=== PATIENT | male | born 1975 | race Caucasian/White ===

== ENCOUNTER → 2021-03-07 08:17 | Outpatient (CLI) | payer OTHER, SELFPAY ==
[2021-03-07 09:55] LABS: Absolute Lymphocyte Count 2.05 X10^3/uL (0.83-4.51); Absolute Neutrophil Count 3.9 X10^3/uL (2.0-7.7); Basophil# 0.03 X10^3/uL; Basophil% 0.4 % (0-1); Eosinophil# 0.14 X10^3/uL; Eosinophils% 2.1 % (0-5); Hematocrit 40.2 % (40-54); Lymphocyte # 2.05 X10^3/ul (0.83-4.51); Lymphocyte % 30.6 % (19-41); Mean Corp Hgb Conc 34.8 g/dL (32-36); Mean Corpuscular Hgb 30.6 pg (27.0-32.0); Mean Platelet Vol. 10.4 fl (6.2-12.0); Monocyte# 0.52 X10^3/uL; Monocyte% 7.8 % (0-10); NRBC Flagged by Analyzer 0 % (0-5); Neutrophil % 58.4 % (47-70); Platelet Count 204 K/mm3 (150-450); RBC Distribution Width CV 13.1 % (11.6-14.6); RBC Distribution Width SD 41.8 fl (35.1-43.9); Red Blood Count 4.57 M/mm3 (4.6-6.2); White Blood Count 6.7 K/mm3 (4.4-11.0)
[2021-03-07 10:16] LABS: Hemoglobin A1c 6.8 % (3.8-5.6)
[2021-03-07 10:37] LABS: Vitamin D,25 Hydroxy 23.8 ng/mL
[2021-03-07 10:48] LABS: ALB/GLOB Ratio 0.9 RATIO (0.9-2.4); AST(SGOT) 33 U/L (15-37); Alanine Aminotransfer ALT/SGPT 56 U/L (16-61); Albumin, Serum 3.7 g/dL (3.2-5.0); Alkaline Phosphatase 61 U/L (45-117); Anion Gap 8 (5-15); BUN 12 mg/dL (7-18); BUN/Creat Ratio 9.5 RATIO (10-20); Calcium,Total 8.9 mg/dL (8.5-10.1); Chloride 99 mmol/L (98-107); Cholesterol 227 mg/dL (200); Creatinine, Serum 1.26 mg/dL (0.70-1.30); EST Glomerular Filtration Rate 65 mL/min (>60); Est Glom Filt Rate - Afr Amer 79 mL/min (>60); Glucose 171 mg/dL (74-106); High Density Lipoprotein 39 mg/dL; Magnesium 1.7 mg/dL (1.6-2.6); PSA,Total - Annual Screen 0.94 ng/mL (0.00-4.00); Potassium 3.8 mmol/L (3.5-5.1); Protein, Total 7.7 g/dL (6.4-8.2); Sodium Level 134 mmol/L (136-145); Thyroid Stim Hormone (TSH) 0.21 uIU/mL (0.358-3.74); Triglycerides 327 mg/dL; Very Low Density Lipoprotein 65 mg/dL (5-40)
== END ==
PROVIDERS: PCP Internal Medicine; Referring Provider Internal Medicine; Visit Provider Internal Medicine
DX: E03.9 Hypothyroidism, unspecified (principal); E78.5 Hyperlipidemia, unspecified; I10 Essential (primary) hypertension; F32.A Depression, unspecified; F41.9 Anxiety disorder, unspecified
CPT/HCPCS: 36415; 80053; 80061; 82306; 83036; 83735; 84153; 84443; 85025; G0103

== ENCOUNTER 2021-07-17 11:23 | Outpatient (CLI) | payer OTHER, SELFPAY ==
[2021-07-17 12:50] LABS: Vitamin D,25 Hydroxy 30.2 ng/mL
[2021-07-17 13:23] LABS: Microalbumin:Creatinine Ratio 74.5 mg/g CRE (<30 mg/g CRE)
[2021-07-17 13:30] LABS: ALB/GLOB Ratio 1.1 RATIO (0.9-2.4); AST(SGOT) 34 U/L (15-37); Alanine Aminotransfer ALT/SGPT 56 U/L (16-61); Albumin, Serum 4.1 g/dL (3.2-5.0); Alkaline Phosphatase 71 U/L (45-117); Anion Gap 9 (5-15); BUN 14 mg/dL (7-18); BUN/Creat Ratio 10.9 RATIO (10-20); Calcium,Total 9.2 mg/dL (8.5-10.1); Chloride 102 mmol/L (98-107); Creatinine, Serum 1.28 mg/dL (0.70-1.30); EST Glomerular Filtration Rate 64 mL/min (>60); Est Glom Filt Rate - Afr Amer 77 mL/min (>60); Follicle Stimulating Hormone 0.3 mIU/mL; Globulin 3.9 g/dL (2.2-4.2); Glucose 165 mg/dL (74-106); Luteinizing Hormone < 0.2 mIU/mL; Prolactin 7.5 ng/mL; Sodium Level 135 mmol/L (136-145); T4 Free Direct 1.45 ng/dL (0.76-1.46)
[2021-07-20 19:07] LABS: Testosterone, % Free 3.82 % (1.50-4.20); Testosterone, Free 3.21 ng/dL (5.00-21.00)
[2021-07-20 20:02] LABS: Anti-Thyroglobulin AB < 1.0 IU/mL (0.0-0.9); Testosterone, Total 84 ng/dL (264-916); Thyroglobulin, Serum Qt. 0.1 ng/mL (1.4-29.2)
== END 2021-07-17 23:59 | disposition home or self-care (01) ==
LOC: BIMLAB 11:23
PROVIDERS: PCP Internal Medicine; Referring Provider Internal Medicine Endocrinology, Diabetes & Metabolism; Visit Provider Internal Medicine Endocrinology, Diabetes & Metabolism
DX: E78.5 Hyperlipidemia, unspecified (principal); C73 Malignant neoplasm of thyroid gland; E11.9 Type 2 diabetes mellitus without complications; I10 Essential (primary) hypertension; E03.9 Hypothyroidism, unspecified; E55.9 Vitamin D deficiency, unspecified
CPT/HCPCS: 36415; 80053; 82043; 82306; 82570; 83001; 83002; 84146; 84402; 84403; 84432; 84439; 84443; 86800

== ENCOUNTER 2021-07-30 08:02 | Outpatient (CLI) | payer OTHER, SELFPAY ==
--- NOTE | 2021-07-30 08:05 | VDLE_ITS ---
Reason For Study: RLE swelling RIGHT GSV is normal. CFV is compressible, spontaneous, phasic, competent and demonstrates normal augmentation. FV is compressible, spontaneous, phasic, competent and demonstrates normal augmentation. POP V is compressible, spontaneous, phasic, competent and demonstrates normal augmentation. T/P Trunk is compressible. PTV is compressible. RT PerV is compressible. Hypoechoic area behind the knee measuring 2.35 x 5.51 cm. Area is nonvascular. Procedure This is a venous duplex using B-mode, color flow and spectral Doppler. Exam performed in department. The exam was abbreviated due to the COVID 19 protocol. The exam was diagnostic. A preliminary report was called and/or faxed to Dr. Montelongo. VL/Venous Duplex US, Unilateral Interpretation Summary There is no evidence of right lower extremity deep vein thrombosis. Right great saphenous vein appears patent and compressible segmentally. SuctionNonvascular hypoechoic righ t popliteal space 2.35 x 5.51 cm consistent with a Porter's cyst. Clinical correlation would be ap propriate. Abbreviated COVID-19 protocol utilized Ordering Physician: Aníbal Montelongo Performed By: Morgan Mccormick RVT
== END 2021-07-30 23:59 | disposition home or self-care (01) ==
LOC: CVS 08:04
PROVIDERS: PCP Internal Medicine; Referring Provider Internal Medicine Endocrinology, Diabetes & Metabolism; Visit Provider Internal Medicine Endocrinology, Diabetes & Metabolism
DX: R60.0 Localized edema (principal)
CPT/HCPCS: 93971

== ENCOUNTER 2021-08-01 15:00 | Outpatient (RCR) | payer OTHER, SELFPAY ==
--- NOTE | 2021-07-02 18:58 | HP.PTEVAL_ITS ---
Patient's Visit Information ASHLEY RUBIO is a 45 year old M referred to Physical Therapy by Dr. Katty Hogan MD with a diagnosis of CERVICAL RADICULOPATHY. Date of Evaluation: 07/02/21 Physical Therapist: Cash Patel, PT, Cert MDT, OCS - Visit Plan Frequency: 2x /Week Duration: 4 Weeks Plan: CAUTIONS H/O SHOULDER DISLOCATION. PT INTERVETIONS MODALTIES FOR PAIN ,ICTX 25#/12# [id number],MANUAL THERAPY CERVICAL ,CERVICAL ROM MAINLY TO RIGHT INTAILLY,POSTURAL EX'S - Subjective This 45 y/o male presents to physical therapy with cervical radiculopathy. Patient has had cervical radiculopathy for~ 1 year. No predisposing factors with progressively worsen. Patient has location of constant pain UT - shoulder and intermittent paresthesia/tingling in thumb -index finger C5-6 dermatome. Aggravating turn cervical spine left, lifting with arm with some weakness even though patient is right hand dominate. Alleviating turn to right. Patient seen MD recommended PT, muscles relaxer . Patient denies NUÑEZ/tinnitus/dizziness. Patient pain affects job demands /housework tasks . SOCAIL: . 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 NEURO: c/o paresthesia/tingling left C5-C6 1/3 ,MYTOMES intact. ENA BUE:WFL limited by h/o shoulder dislocation. CERVICAL ROM: flexion min loss, extension min loss ,lateral flexion/rotation min/mod pain and numbness in fingers. MMT: 4/5 except shoulders 4-/5 - Special Tests C/S Radiculapathy - Left Upper limb tension test: Negative C/S Radiculapathy - Right Upper limb tension test: Negative C/S Radiculapathy - Left Spurlings: Positive C/S Radiculapathy - Right Spurlings: Negative C/S Radiculapathy - Left Cervical distraction: Negative C/S Radiculapathy - Right Cervical distraction: Negative C/S Radiculapathy - Left Relief test: Negative C/S Radiculapathy - Right Relief test: Negative Sharp Dorina: Negative Vertebral Artery Test: Negative Alar Ligament Test: Negative Cervical Sitting: Protrusion - Mechanical Response: No effect Cervical Sitting: Protrusion - Symptoms During Testing: No effect Cervical Sitting: Protrusion - Symptoms After Testing: No effect Cervical Sitting: Retraction - Mechanical Response: No effect Cervical Sitting: Retraction - Symptoms During Testing: Increases Cervical Sitting: Retraction - Symptoms After Testing: No worse Cervical Sitting: Retraction-Extension - Mechanical Response: No effect Cerv Sitting: Retraction-Extension - Symptoms During Testing: Increases Cerv Sitting: Retraction-Extension - Symptoms After Testing: No worse Cervical Sitting: Sidebend Right - Mechanical Response: No effect Cervical Sitting: Sidebend Right - Symptoms During Testing: Decreases Cervical Sitting: Sidebend Right - Symptoms After Testing: Better Cervical Sitting: Sidebend Left - Mechanical Response: No effect Cervical Sitting: Sidebend Left - Symptoms During Testing: Produces Cervical Sitting: Sidebend Left - Symptoms After Testing: Worse Cervical Sitting: Rotation Right - Mechanical Response: No effect Cervical Sitting: Rotation Right - Symptoms During Testing: Decreases Cervical Sitting: Rotation Right - Symptoms After Testing: No better Cervical Sitting: Rotation Left - Mechanical Response: No effect Cervical Sitting: Rotation Left - Symptoms During Testing: Produces Cervical Sitting: Rotation Left - Symptoms After Testing: No worse Cervical Sitting: Flexion - Mechanical Response: No effect Cervical Sitting: Flexion - Symptoms During Testing: No effect Cervical Sitting: Flexion - Symptoms After Testing: No effect - Balance/Special Test Scores Oswestry Neck Score: 19 - Goals Goal 1:: I with HEP to mange cervical radiculopathy Goal Time Frame: 4-6 Weeks Goal 2:: Patient improve posture 90% of the time for function and job demnads. Goal Time Frame: 4-6 Weeks Goal 3:: Patient to demonstrate 50% improvement with decrease radiculopathy to improve function Goal Time Frame: 4-6 Weeks Goal 4:: Patient to improve cervical ROM for function of recovery to turn neck when driving a car Goal Time Frame: 4-6 Weeks Goal 5:: Patient to improve neck oswestry score by 5 points or > to improve QOL Goal Time Frame: 4-6 Weeks - Rehabilitation Potential Physical Therapy Diagnosis: This patient has cervical radiculopathy from possible disc lateral stenosis vs disc issue derangement with symptoms worse with positioning and movement to ,left with numbness C5-6 and pain UT thus benefit from skilled PT Rehabilitation Potential: Good - Anticipated Interventions Patient/Client Instruction: Educate patient on: Condition, Plan of Care For the Purpose of:: To decrease pain, To increase ROM, To improve muscle performance and motor function, To improve ability to perform ADL's, To increase tolerance to activity/condition/position, To improve ability of physical actions for home/community/work/leisure, To improve health of tissue, To decrease soft tissue restriction, To increase flexibility/ROM, To reduce risk of recurrence, To prevent re-injury Therapeutic Exercise to Include: Strength training, Power training, Balance training, Postural training, Flexibilty training, Active ROM, Didier Exercises For the Purpose of:: To decrease pain, To increase ROM, To increase oxygenation perfusion, To increase tolerance to activity/condition/position, To improve ability of physical actions for home/community/work/leisure, To improve health of tissue, To decrease soft tissue restriction, To increase flexibility/ROM, To prevent re-injury Manual Therapy Techniques to Include: Mobilization Comment: CERVICAL For the Purpose of:: To decrease pain, To increase ROM, To improve nutrient delivery to tissue, To increase oxygenation perfusion, To improve health of tissue, To decrease soft tissue restriction TENS: Yes IF ES: Yes Cryotherapy (ice pack, ice massage): Yes Thermo therapy (hot pack): Yes Ultrasound (thermal/non thermal): Yes For the Purpose of:: To decrease pain, To improve nutrient delivery to tissue, To increase oxygenation perfusion, To improve health of tissue, To decrease soft tissue restriction Thank you for the opportunity to evaluate your patient. For Medicare and Medicare HMO plans, please review the plan of care and approve it. It will need to be FAXED BACK to us at [phone] for Medicare purposes. For Medicare only, by signing this I certify the plan of care. Please let me know if there are questions or concerns regarding this plan of care. Physician Signature: Date:
--- NOTE | 2021-12-26 11:57 | HP.PT.NRP ---
ASHLEY RUBIO was seen in my office for initial evaluation on 07/02/21. The following Plan of Care was established for this patient: Initial Frequency: 2x /Week Initial Duration: 4 Weeks Patient/Client Instruction: Educate patient on: Condition, Plan of Care For the Purpose of:: To decrease pain, To increase ROM, To improve muscle performance and motor function, To improve ability to perform ADL's, To increase tolerance to activity/condition/position, To improve ability of physical actions for home/community/work/leisure, To improve health of tissue, To decrease soft tissue restriction, To increase flexibility/ROM, To reduce risk of recurrence, To prevent re-injury Therapeutic Exercise to Include: Strength training, Power training, Balance training, Postural training, Flexibilty training, Active ROM, Didier Exercises For the Purpose of:: To decrease pain, To increase ROM, To increase oxygenation perfusion, To increase tolerance to activity/condition/position, To improve ability of physical actions for home/community/work/leisure, To improve health of tissue, To decrease soft tissue restriction, To increase flexibility/ROM, To prevent re-injury Manual Therapy Techniques to Include: Mobilization Comment: CERVICAL For the Purpose of:: To decrease pain, To increase ROM, To improve nutrient delivery to tissue, To increase oxygenation perfusion, To improve health of tissue, To decrease soft tissue restriction TENS: Yes IF ES: Yes Cryotherapy (ice pack, ice massage): Yes Thermo therapy (hot pack): Yes Ultrasound (thermal/non thermal): Yes For the Purpose of:: To decrease pain, To improve nutrient delivery to tissue, To increase oxygenation perfusion, To improve health of tissue, To decrease soft tissue restriction This patient was last seen in our office . Pertinent comments regarding their Physical therapy will appear below: This patient was seen for PT for cervical radiculopathy for ICTX and postural ex's ,Patient had MRI and followed up with DR Naidu At this point I will be discontinuing this patient from physical therapy. I would be happy to see this patient again in the future if found appropriate by the physician. Thank you! Cash Patel, PT, Cert MDT, OCS Balance/Gait/Functional tests - Balance/Special Test Scores Oswestry Neck Score: 8
== END 2021-08-01 19:00 | disposition home or self-care (01) ==
LOC: PT 15:00
PROVIDERS: PCP Internal Medicine; Referring Provider Internal Medicine; Visit Provider Internal Medicine
DX: M54.12 Radiculopathy, cervical region (principal)
CPT/HCPCS: 97012; 97035; 97110; 97162

== ENCOUNTER 2021-12-11 15:38 | Emergency (ER) | payer OTHER, SELFPAY ==
[2021-12-11 15:39] VITALS: BP 200/115; PULSE 89; RESP 18; TEMP 36.3; O2SAT 97; BMI 50.0
--- NOTE | 2021-12-11 15:49 | VDLE_ITS ---
[id number] VL^VDUL^Venous Duplex US- Unilateral [id number] Reason For Study: pain RIGHT GSV is normal. CFV is compressible, spontaneous, phasic, competent and demonstrates normal augmentation. FV is compressible, spontaneous, phasic, competent and demonstrates normal augmentation. POP V is compressible, spontaneous, phasic, competent and demonstrates normal augmentation. T/P Trunk is compressible. PTV is compressible. RT PerV is compressible. Hypoechoic area behind the knee measuring 5.79 x 2.42 cm. Area is nonvascular. Procedure This is a venous duplex using B-mode, color flow and spectral Doppler. Exam performed portable in ED. The exam was abbreviated due to the COVID 19 protocol. The exam was diagnostic. A preliminary report was called and/or faxed to Dr. Matos. VL/Venous Duplex US, Unilateral Interpretation Summary There is no evidence of right lower extremity deep vein thrombosis. Right great saphenous vein appears patent and compressible segmentally. Nonvascular hypoechoic right popli teal space 5.79 x 2.4 cm structure consistent with a Porter's cyst. Clinical correlation would be appr opriate. Abbreviated COVID-19 protocol utilized Ordering Physician: Chin Matos Performed By: Morgan Mccormick RVT
--- NOTE | 2021-12-11 15:49 | ED.VIS.LOWEX ---
HPI History of Present Illness Chief Complaint: Lower Extremity Injury Detail of Chief Complaint: Pain to her right lateral thigh Informant: patient Narrative Narrative: Patient presents the emergency room with complaint of pain to his right lateral thigh. Patient states that the pain started earlier today. He denies any trauma to his leg. He denies back pain. Patient has history of varicose veins and his was concerned he might have a blood clot. He denies recent travel or surgery. No history of DVT. Patient denies any chest pain or shortness of breath out of the ordinary. Patient states the pain is intermittent lasts about 15 seconds at a time and then goes away for about 30 seconds then comes back. Patient states the pain is mild currently. [facility] Medical History AA (alcohol abuse) Arthritis Cancer Disorder of thyroid Gout History of back problems History of emotional problems Hyperlipidemia Hypertension Obesity Osteoarthritis of right knee Postoperative primary hypothyroidism Thyroid cancer Home Medications cholecalciferol (vitamin D3) 50 mcg (2,000 unit) capsule 50 mcg PO DAILY 02/19/21 [History Last Taken Unknown] atorvastatin 40 mg tablet 40 mg PO DAILY #90 tabs 03/07/21 [Rx Last Taken Unknown] buspirone 15 mg tablet 15 mg PO BID #180 tabs 05/31/21 [Rx Last Taken Unknown] cyclobenzaprine 10 mg tablet 10 mg PO TID #30 tabs 06/19/21 [Rx Last Taken Unknown] lisinopril 40 mg tablet 40 mg PO DAILY #90 tabs 06/22/21 [Rx Last Taken Unknown] omeprazole 40 mg capsule,delayed release 40 mg PO DAILY 07/17/21 [History Last Taken Unknown] chlorthalidone 25 mg tablet 25 mg PO DAILY #90 tabs 07/31/21 [Rx Last Taken Unknown] levothyroxine 300 mcg tablet 300 mcg PO DAILY #90 tabs 08/27/21 [Rx Last Taken Unknown] omeprazole 20 mg tablet,delayed release 40 mg PO DAILY #90 tabs 09/20/21 [Rx Last Taken Unknown] amlodipine 5 mg tablet 5 mg PO DAILY #90 tabs 11/14/21 [Rx Last Taken Unknown] fluoxetine 40 mg capsule 40 mg PO DAILY #90 caps 11/15/21 [Rx Last Taken Unknown] testosterone cypionate 200 mg/mL intramuscular oil 200 mg IM Q2W #6 mL 11/19/21 [Rx Last Taken Unknown] metoprolol succinate 100 mg tablet,extended release 24 hr 100 mg PO DAILY #90 tabs 12/07/21 [Rx Last Taken Unknown] metformin 1,000 mg tablet 1,000 mg PO BID #60 tabs 12/11/21 [Rx Last Taken Unknown] Allergy/AdvReac Type Severity Reaction Status Date / Time cephalexin [From Keflex] Allergy Intermediate Swelling Verified 12/11/21 15:41 Surgical History H/O thyroidectomy Social History Smoking Status: Former smoker alcohol intake: current alcohol intake frequency: 3 or more drinks per day substance use type: does not use what type of physical activity do you participate in: none ROS ROS ED Review of Systems ROS Unobtainable: other Constitutional Constitutional ED: Reports lethargy; Denies chills, fever(s), sweats or weight loss Eyes Eyes: Denies blurry vision, change in vision or diplopia ENT ENT ED: Denies rhinorrhea or sore throat Cardiovascular Cardiovascular: Denies chest pain, orthopnea or racing heartbeat Respiratory/Chest Respiratory/Chest: Denies cough, dyspnea, dyspnea on exertion, orthopnea or sputum Gastrointestinal Gastrointestinal: Denies abdominal pain, diarrhea, nausea or vomiting Genitourinary Genitourinary ED: Denies dysuria, hematuria or urinary frequency Musculoskeletal Musculoskeletal: Reports other Details: Right leg pain ; Denies arthralgias, back pain, myalgias or neck pain Integumentary Denies abscess, Abrasions or rash Neurologic Neurologic: Denies headache(s) or weakness Psychiatric Psychiatric: Denies anxiety, depression or suicidal thoughts Endocrine Endocrinology: Denies polydipsia, polyphagia or polyuria Hematologic/Lymphatic Hematologic/Lymphatic: Denies easy bleeding, easy bruising or lymphadenopathy Allergic/Immunologic Allergic/Immunologic ED: Denies mouth swelling, tongue swelling or urticaria EXAM Physical Exam Const Vital Signs: 12/11/21 15:39 Temperature 97.4 F L Temperature Source Temporal Pulse Rate 89 Respiratory Rate 18 Blood Pressure 200/115 H Blood Pressure Mean 143 Pulse Ox 97 Positive well nourished and well developed General Appearance ED: well developed and NAD HEENT Reports TM's clear and moist mucous membranes normocephalic and atraumatic; Negative for trauma or tenderness Tympanic Membrane ED: Yes TM's clear Eyes PERRL and EOMs intact bilaterally General Eye ED: Negative for pale conjunctiva or scleral icterus Neck no lymphadenopathy, supple and no JVD General: Negative for tenderness Chest Wall inspection of chest normal and palpation of chest normal Chest: Negative for tenderness Resp normal respiratory effort and clear to auscultation bilaterally Effort and Inspection: Negative for respiratory distress or pain with movement Auscultation: Negative for rhonchi, wheezes or diminished lung sounds Cardio regular rate, regular rhythm, S1 normal heart sound, S2 normal heart sound and no murmurs Peripheral Pulses: pulses 2+ throughout GI normal to inspection, nondistended, normoactive bowel sounds, soft to palpation, non-tender, non-distended and no masses Back/Spine no CVA tenderness and no thoracic nor lumbar tenderness Extremity Extremity Narrative: Right leg-patient has minimal discomfort over right lateral thigh however difficult to reproduce his pain. Patient does have diffuse varicose veins. Negative Homans' sign. No significant edema noted. There is no ecchymosis or bruising. There is no erythema or cellulitic changes. General Extremety ED: Negative for edema General Extremity: Negative for edema Neuro oriented x3, CN's II-XII intact bilaterally, no sensory deficits noted and gait normal Sensorium / Orientation: awake, alert, oriented to person, oriented to place and oriented to time Motor Exam: strength 5/5 throughout and strength abnormal Psych mental status grossly normal Skin no rashes or lesions noted and no wounds MDM MDM MDM Narrative Medical decision making narrative: Patient had a venous Doppler of the right lower extremity obtained that was negative for DVT. This point etiology of his pain is unclear. In the differential would be meralgia paresthetica versus possible muscle strain. Patient not having severe pain and I recommended that he use ibuprofen or Tylenol for discomfort. Patient to follow-up with his primary care physician in 3 to 5 days. Discharge Plan Triage Chief Complaint: Lower Extremity Injury ED Provider: Chin Matos Dx/Rx/DC Orders Clinical Impression: Acute pain of right lower extremity Instructions: ED Pain, Acute, Uncertain Cause, ED Muscle Strain, Extremity Prescriptions: No Action omeprazole 40 mg capsule,delayed release(DR/EC) 40 mg PO DAILY Label Comments: TAKE 1 CAPSULE BY MOUTH ONCE DAILY cholecalciferol (vitamin D3) 50 mcg (2,000 unit) capsule 50 mcg PO DAILY cyclobenzaprine 10 mg tablet 10 mg PO TID Qty: 30 1RF levothyroxine 300 mcg tablet 300 mcg PO DAILY Qty: 90 3RF atorvastatin 40 mg tablet 40 mg PO DAILY Qty: 90 1RF buspirone 15 mg tablet 15 mg PO BID Qty: 180 1RF lisinopril 40 mg tablet 40 mg PO DAILY Qty: 90 3RF chlorthalidone 25 mg tablet 25 mg PO DAILY Qty: 90 3RF omeprazole 20 mg tablet,delayed release (DR/EC) 40 mg PO DAILY Qty: 90 3RF amlodipine 5 mg tablet 5 mg PO DAILY Qty: 90 1RF fluoxetine 40 mg capsule 40 mg PO DAILY Qty: 90 1RF testosterone cypionate 200 mg/mL oil 200 mg IM Q2W Qty: 6 1RF metoprolol succinate 100 mg tablet extended release 24 hr 100 mg PO DAILY Qty: 90 1RF metformin 1,000 mg tablet 1,000 mg PO BID Qty: 60 0RF Primary Care Provider: Katty Hogan Referrals: Katty Hogan MD [Primary Care Provider] - 3-5 Days Disposition Disposition: Home, Self Care
[2021-12-11 16:26] VITALS: BP 196/103; PULSE 92; RESP 15; O2SAT 99
== END 2021-12-11 16:27 | disposition home or self-care (01) ==
PROVIDERS: Emergency Provider Emergency Medicine; PCP Internal Medicine; Visit Provider Emergency Medicine
DX: M79.651 Pain in right thigh (principal); I10 Essential (primary) hypertension; E78.5 Hyperlipidemia, unspecified; E89.0 Postprocedural hypothyroidism; Z79.899 Other long term (current) drug therapy; Z87.891 Personal history of nicotine dependence
CPT/HCPCS: 93971; 99282

== ENCOUNTER → 2022-06-26 | Outpatient (CLI) | payer OTHER, SELFPAY ==
[2022-06-26 10:31] LABS: Absolute Lymphocyte Count 1.96 X10^3/uL (0.83-4.51); Absolute Neutrophil Count 3.6 X10^3/uL (2.0-7.7); Basophil# 0.02 X10^3/uL; Basophil% 0.3 % (0-1); Eosinophil# 0.13 X10^3/uL; Eosinophils% 2.1 % (0-5); Hematocrit 43.9 % (40-54); Hemoglobin 15.1 g/dL (13.0-16.5); Lymphocyte # 1.96 X10^3/ul (0.83-4.51); Mean Corp Hgb Conc 34.4 g/dL (32-36); Mean Corpuscular Hgb 31.3 pg (27.0-32.0); Mean Corpuscular Volume 91.1 fL (80-94); Mean Platelet Vol. 11.1 fl (6.2-12.0); Monocyte# 0.54 X10^3/uL; Monocyte% 8.5 % (0-10); NRBC Flagged by Analyzer 0 % (0-5); Neutrophil # 3.62 X10^3/uL (2.7-7.7); Neutrophil % 57.2 % (47-70); Platelet Count 189 K/mm3 (150-450); RBC Distribution Width CV 13.3 % (11.6-14.6); RBC Distribution Width SD 44.1 fl (35.1-43.9); Red Blood Count 4.82 M/mm3 (4.6-6.2); White Blood Count 6.3 K/mm3 (4.4-11.0)
[2022-06-26 10:54] LABS: ALB/GLOB Ratio 0.9 RATIO (0.9-2.4); AST(SGOT) 74 U/L (15-37); Alanine Aminotransfer ALT/SGPT 89 U/L (16-61); Albumin, Serum 3.7 g/dL (3.2-5.0); Alkaline Phosphatase 63 U/L (45-117); Anion Gap 11 (5-15); BUN 12 mg/dL (7-18); BUN/Creat Ratio 10.2 RATIO (10-20); Chloride 100 mmol/L (98-107); Cholesterol 215 mg/dL (200); Creatinine, Serum 1.18 mg/dL (0.70-1.30); EST Glomerular Filtration Rate 70 mL/min (>60); Est Glom Filt Rate - Afr Amer 85 mL/min (>60); Free T3 2.2 pg/mL (2.18-3.98); Globulin 3.9 g/dL (2.2-4.2); Glucose 212 mg/dL (74-106); High Density Lipoprotein 37 mg/dL; PSA,Total - Annual Screen 0.61 ng/mL (0.00-4.00); Potassium 3.9 mmol/L (3.5-5.1); Protein, Total 7.6 g/dL (6.4-8.2); Sodium Level 134 mmol/L (136-145); T4 Free Direct 1.27 ng/dL (0.76-1.46); Thyroid Stim Hormone (TSH) 2.23 uIU/mL (0.358-3.74); Triglycerides 523 mg/dL
[2022-06-27 19:43] LABS: Anti-Thyroglobulin AB < 1.0 IU/mL (0.0-0.9); Thyroglobulin, Serum Qt. < 0.1 ng/mL (1.4-29.2)
[2022-06-28 22:07] LABS: Testosterone, Free 4.67 ng/dL (5.00-21.00)
[2022-06-29 12:32] LABS: Testosterone, % Free 2.92 % (1.50-4.20); Testosterone, Total 160 ng/dL (264-916)
== END | disposition home or self-care (01) ==
LOC: MTLAB 07:26
PROVIDERS: PCP Internal Medicine; Referring Provider Internal Medicine Endocrinology, Diabetes & Metabolism; Visit Provider Internal Medicine Endocrinology, Diabetes & Metabolism
DX: E89.0 Postprocedural hypothyroidism (principal); E66.01 Morbid (severe) obesity due to excess calories; Z68.42 Body mass index [BMI] 45.0-49.9, adult; C73 Malignant neoplasm of thyroid gland; E11.9 Type 2 diabetes mellitus without complications; M54.12 Radiculopathy, cervical region; I10 Essential (primary) hypertension; F32.A Depression, unspecified; F41.9 Anxiety disorder, unspecified; E78.5 Hyperlipidemia, unspecified; E29.1 Testicular hypofunction; Z12.5 Encounter for screening for malignant neoplasm of prostate
CPT/HCPCS: 36415; 80053; 80061; 84153; 84402; 84403; 84432; 84439; 84443; 84481; 85025; 86800; G0103

== ENCOUNTER → 2023-04-28 | Outpatient (CLI) | payer OTHER, SELFPAY ==
--- OUTSIDE RECORDS SUMMARY | 2023-04-28 08:43 | XMS RPT_ITS | CCD ---
Author Name Unknown Address [address] [place] [address] Organization [facility] Care Team Providers Care [employer] Carman Name Role Phone SUN LUCERO, SRAVAN Primary Care Physician RADHA LUCERO, JOHNNY Attending Unavailable SUN LUCERO, SRAVAN Primary Care Unavailable KING JAZMINE, KATIE Nicole Attending Unavailable SUN LUCERO, SRAVAN Primary Care Unavailable SUN LUCERO, SRAVAN Attending Unavailable SUN LUCERO, SRAVAN Primary Care Unavailable Allergies Allergy Classification Reported Allergen(s) Allergy Type Date of Onset Reaction(s) Facility (1 source) Cephalexin; Translations: [cephalexin] Drug Allergy [facility] Results Test Name Value Interpretation Reference Range Facil ity Vital Signs Date Time Vital Sign Value Performing Clinician Faci lity 06-30-2022 16:47-0400 Diastolic Blood Pressure Non-Invasive 116 1 JOHNNY GARCIA MD [facility] 06-30-2022 16:47-0400 Heart rate 96 /min JOHNNY GARCIA MD [facility] 06-30-2022 16:47-0400 Respiratory rate 18 /min JOHNNY GARCIA MD [facility] 06-30-2022 16:47-0400 Systolic Blood Pressure Non-Invasive 183 1 JOHNNY GARCIA MD [facility] 06-30-2022 14:23-0400 Blood Pressure Location JOHNNY GARCIA MD [facility] 06-30-2022 14:23-0400 Body height 190.5 cm JOHNNY GARCIA MD [facility] 06-30-2022 14:23-0400 Body temperature 97.7 [degF] JOHNNY GARCIA MD [facility] 06-30-2022 14:23-0400 Body weight 181.8 kg JOHNNY GARCIA MD [facility] 06-30-2022 14:23-0400 Diastolic Blood Pressure Non-Invasive 90 1 JOHNNY GARCIA MD [facility] 06-30-2022 14:23-0400 Heart rate 111 /min JOHNNY GARCIA MD [facility] 06-30-2022 14:23-0400 Respiratory rate 16 /min JOHNNY GARCIA MD [facility] 06-30-2022 14:23-0400 Systolic Blood Pressure Non-Invasive 155 1 JOHNNY GARCIA MD [facility] Encounters Encounter Date Encounter Type Care Provider Facility Start: 06-30-2022 End: 06-30-2022 Emergency department patient visit JHONNY GARCIA MD Facility:B Start: 06-30-2022 End: 06-30-2022 Emergency department patient visit JOHNNY GARCIA MD [facility] Start: 10-19-2021 End: 10-20-2021 ambulatory SRAVAN GARSIA MD Facility:[facility] Start: 10-19-2021 End: 10-19-2021 Patient encounter procedure SRAVAN GARSIA MD [facility] Start: 08-20-2021 End: 08-21-2021 ambulatory KATIE BHAKTA MD Facility:[facility] Start: 08-20-2021 End: 08-20-2021 Patient encounter procedure KATIE BHAKTA MD [facility] Immunizations Immunization Date Immunization Notes Care Provider Fa mauri 06-30-2022 tetanus toxoid, redu leonie diphtheria toxoid, and acellular pertussis vaccine, adsorbed JOHNNY GARCIA MD [facility] Payers Date Payer Category Payer Unknown [id number] 1975 Unknown [id number] 1975 Unknown [id number] 1975 Unknown [id number] Social History Date Type Detail Facility Tobacco smoking status [facility] Sex Assigned At Male [facility] Tobacco smoking status No Smoking Status Entered [facility] Functional Status Date Assessment Result Facility 06-30-2022 Functional Status Independent [facility] 06-30-2022 Functional Status Standard Safet y ID band on, Call device within reach, Bed in low position, Wheels locked, Safety level maintained [facility] Mental Status Date Assessment Result Facility 06-30-2022 Mental Status Orientation Oriented x 4 [facility] Discharge instructions 06-30-2022 Note Date & Type Note Facility 06-30-2022 Hospital Discharg e instructions Patient Education 06/30/2022 15:08:25 Skin Avulsion Skin Tear (Skin Avulsion) A skin avulsion is a tearing of the top layer of skin. This commonly happens after a fall or other injury. It also tends to be more common in older people, or those taking blood thinners or steroids for long periods of time. Home care These guidelines will help you care for your wound at home: Keep the wound clean and dry for the first 24 to 48 hours, or as your healthcare provider advises. If there is a dressing or bandage, change it when it gets wet or dirty. Otherwise, leave it on for the first 24 hours, then change it once a day or as often as the doctor says. If stitches or inderjit were used, check the wound every day. After taking off the dressing, wash the area gently with soap and water. Clean as close to the stitches as you can. Avoid washing or rubbing the stitches directly. After 3 days you can keep the bandages off the wound, unless told otherwise, or there is continued drainage. Allow the wound to be open to the air. Keep a thin layer of antibiotic ointment on the cut. This will keep the wound clean, make it easier to remove the stitches, and reduce scarring. If your wound is oozing, you can put a nonstick dressing over it. Then, reapply the bandage or dressing as you were told. You can shower as usual after the first 24 hours, but don't soak the area in water (no baths or swimming) until the stitches or inderjit are taken out. If surgical tape was used, keep the area clean and dry. If it becomes wet, blot it dry with a clean towel. If skin glue was used, don't put any creams, lotions, or antibiotic ointments on it. These can dissolve the glue. Usually the glue will flake off in about 5 to 10 days by itself. Try to resist picking it off before that so the wound doesn't open up. When it gets wet, pat it dry. Here is some information about medicine: You may use qtij-rkq-jaafhud medicine such as acetaminophen or ibuprofen to control pain, unless another pain medicine was given. If you have chronic liver or kidney disease or ever had a stomach ulcer or gastrointestinal bleeding, talk with your doctor before using these medicines. If you were given antibiotics, take them until they are all used up. It is important to finish the antibiotics even if the wound looks better. This will ensure that the infection has cleared. Follow-up care Follow up with your healthcare provider, or as advised. Watch for any signs of infection, such as increasing redness, swelling, or pus coming out. If this happens, don't wait for your scheduled visit. Instead, see a doctor sooner. Stitches or inderjit are usually taken out within 5 to 14 days. This varies depending on what part of your body they are on, and the type of wound. The doctor will tell you how long stitches should be left in. If surgical tape was used, it is usually left on for 7 to 10 days. You can remove surgical tape after that unless you were told otherwise. If you try to remove it, and it is too hard, soaking can help. Surgical tape strips will eventually fall off on their own. If the edges of the cut pull apart, stop removing the tape or strips and follow up with your doctor As mentioned above, skin glue will flake off by itself in 5 to 10 days, so you don't need to pull it off. If any X-rays were done, you will be notified of any changes that may affect your care. When to seek medical advice Call your healthcare provider right away if any of these occur: Increasing pain in the wound Redness, swelling, or pus coming from the wound Fever of 100.4 F (38 C) or higher, or as directed by your healthcare provider Sutures or inderjit come apart or fall out before your next appointment and the wound edges look as if they will re-open Surgical tape closures fall off before 7 days, and the wound edges look as if they will re-open Bleeding not controlled by direct pressure [id number] [employer]. [address] [place] [address], [place] [address]. All rights reserved. This information is not intended as a substitute for professional medical care. Always follow your healthcare professional's instructions. Follow Up Care 06/30/2022 14:13:12 With:SRAVAN GARSIA Address: [address] [place] [address] [place] [phone] Business (1) When:Within 1 Week(s) Comments:Follow-up as needed.Daily wound care with dressing changes.Use Tylenol, Advil or Aleve for pain as needed.Watch for signs of infection.Return to the ED if symptoms worsen. [facility] Clinical Note 06-30-2022 Note Date & Type Note Facility 06-30-2022 Note Discharge Instructions Thank you for allowing [facility] to assist you with your healthcare needs. The following is important discharge information regarding your hospital visit. Diagnosis from Today's Visit thumb laceration What to Do Next Instructions from Your Care Team No qualifying data available. Post Acute Orders No qualifying data available. You Need to Schedule the Following Appointments Follow Up with SRAVAN GARSIA When In 1 week Why: Follow-up as needed. Daily wound care with dressing changes. Use Tylenol, Advil or Aleve for pain as needed. Watch for signs of infection. Return to the ED if symptoms worsen. Where: [address] [facility] [address] [place] [address]- [phone] Business (1) Allergies Keflex Immunizations This Visit Given Vaccine Datetetanus/diphth/pertuss (Tdap) adult/adol 06/30/2022 Medications Please ask your primary doctor or pharmacist before taking any other medication not listed, including over the counter drugs, herbal medications, vitamins and or supplements as they may interact with your home medications. Please take this list to your next doctor s visit. Bring all medications you take, including over the counter medications, herbals and other supplements with you to your doctor s visit. Patients and families are reminded to discard old lists and to update any records with all medication providers or retail pharmacies. Education Materials Skin Tear (Skin Avulsion) A skin avulsion is a tearing of the top layer of skin. This commonly happens after a fall or other injury. It also tends to be more common in older people, or those taking blood thinners or steroids for long periods of time. Home care These guidelines will help you care for your wound at home: Keep the wound clean and dry for the first 24 to 48 hours, or as your healthcare provider advises. If there is a dressing or bandage, change it when it gets wet or dirty. Otherwise, leave it on for the first 24 hours, then change it once a day or as often as the doctor says. If stitches or inderjit were used, check the wound every day. After taking off the dressing, wash the area gently with soap and water. Clean as close to the stitches as you can. Avoid washing or rubbing the stitches directly. After 3 days you can keep the bandages off the wound, unless told otherwise, or there is continued drainage. Allow the wound to be open to the air. Keep a thin layer of antibiotic ointment on the cut. This will keep the wound clean, make it easier to remove the stitches, and reduce scarring. If your wound is oozing, you can put a nonstick dressing over it. Then, reapply the bandage or dressing as you were told. You can shower as usual after the first 24 hours, but don't soak the area in water (no baths or swimming) until the stitches or inderjit are taken out. If surgical tape was used, keep the area clean and dry. If it becomes wet, blot it dry with a clean towel. If skin glue was used, don't put any creams, lotions, or antibiotic ointments on it. These can dissolve the glue. Usually the glue will flake off in about 5 to 10 days by itself. Try to resist picking it off before that so the wound doesn't open up. When it gets wet, pat it dry. Here is some information about medicine: You may use tnrf-azk-gtsspzt medicine such as acetaminophen or ibuprofen to control pain, unless another pain medicine was given. If you have chronic liver or kidney disease or ever had a stomach ulcer or gastrointestinal bleeding, talk with your doctor before using these medicines. If you were given antibiotics, take them until they are all used up. It is important to finish the antibiotics even if the wound looks better. This will ensure that the infection has cleared. Follow-up care Follow up with your healthcare provider, or as advised. Watch for any signs of infection, such as increasing redness, swelling, or pus coming out. If this happens, don't wait for your scheduled visit. Instead, see a doctor sooner. Stitches or inderjit are usually taken out within 5 to 14 days. This varies depending on what part of your body they are on, and the type of wound. The doctor will tell you how long stitches should be left in. If surgical tape was used, it is usually left on for 7 to 10 days. You can remove surgical tape after that unless you were told otherwise. If you try to remove it, and it is too hard, soaking can help. Surgical tape strips will eventually fall off on their own. If the edges of the cut pull apart, stop removing the tape or strips and follow up with your doctor As mentioned above, skin glue will flake off by itself in 5 to 10 days, so you don't need to pull it off. If any X-rays were done, you will be notified of any changes that may affect your care. When to seek medical advice Call your healthcare provider right away if any of these occur: Increasing pain in the wound Redness, swelling, or pus coming from the wound Fever of 100.4 F (38 C) or higher, or as directed by your healthcare provider Sutures or inderjit come apart or fall out before your next appointment and the wound edges look as if they will re-open Surgical tape closures fall off before 7 days, and the wound edges look as if they will re-open Bleeding not controlled by direct pressure [id number] [employer]. [address] [place] [address]. All rights reserved. This information is not intended as a substitute for professional medical care. Always follow your healthcare professional's instructions. Additional Information VACCINATE! IT SAVES LIVES! Members of the community who have not yet received the COVID-19 vaccine and would like to receive it can visit one of [facility] vaccine clinics. There are many vaccine clinic locations within the [facility]. For locations and available times, please visit www.[email or web address].[place].gov/. It is important to note that some COVID mobile vaccine clinics are held outdoors and may be canceled in rainy or stormy conditions. To learn more about pediatric vaccinations (ages 5-11), we invite you to visit the [facility] webpage. [email or web address].[email or web address].org/pages/2 [email or web address]-Qlisg-Ldmoachqfwz-Frequently-Asked -Questions.html To learn more about the COVID-19 vaccine, we invite you to visit the CDC website for a list of frequently asked questions. https://www.cdc.gov/coronavirus/2019-n cov/vaccines/faq.html [employer] Patient Portal Access Instructions: Stay connected with your healthcare team and access your personal medical information anytime with the [employer] Patient Portal. If you would like a full copy of your medical records please contact the [facility] Medical Records Department Friday through Friday between 8a.m. and 4:30p.m. Please follow the directions below to access the portal: 1.Access the email account you provided upon registration to the hospital.2.Look for an invitation email from [facility].3.Open the email and access the invitation link: Accept Invitation to [facility]4.Fill in the required muro to create your account. Sign into [email or web address] with your username and password that you created in the above steps to stay up to date. You can then view a summary of results, a summary of your visits, and the ability to download your summaries to your computer or send the information securely to a physician. Remember that your healthcare information is confidential, so carefully consider who you will allow to register on the [facility] Patient Portal for access to your information. You can also access the [facility] Patient Portal on the [employer]. Simply click on Health Records under Health Data and then click on the [employer] logo. HOW TO SAFELY DISPOSE OF PRESCRIPTION MEDICATIONS Please use one of the following methods to safely dispose of your unused medications. 1.Use a drug disposal kit: the drug disposal pouch allows you to safely discard your old and unused drugs. Ask your nurse to give you one when you are discharged.2.Visit a local take-back location: Many local pharmacies and police departments have programs that collect old and unwanted prescription drugs. Call your local pharmacy or go to http://Clarivoy.Buzz360/6X7Oy9a to find one close to you.3.Make use of household items: Use cat litter or old coffee grounds to dispose medications if other options are not available. Mix your drugs with these household products, seal them in an airtight container and throw it into the garbage. Call [facility]: [phone] to be sure your drugs can be disposed of in this way. Some medicines may require a different approach.4.Never flush your medications down the toilet. IF YOU HAVE BEEN PRESCRIBED AN OPIOIDS FOR PAIN If you have been prescribed an opioid (such as hydrocodone, oxycodone or morphine), it is critical to understand the possible side effects and risks of opioid pain medications. Even when taken as directed, opioids can have several side effects including: Tolerance, meaning you might need to take more of a medication for the same pain relief. Nausea, vomiting and/or constipation. Sleepiness, dizziness, dry mouth, confusion, depression or itching. Physical dependence, meaning you have withdrawal symptoms when a medication is stopped ? this can develop within a few days. KNOW YOUR RESPONSIBILITIES It is important to know exactly how much and how often to take the opioid pain medications you are prescribed. Never take opioids in higher amounts or more often than prescribed. Do not combine opioids with alcohol or other drugs that cause drowsiness, such as benzodiazepines, also known as benzos, including diazepam and alprazolam, muscle relaxants or sleep aids. Never sell or share prescription opioids. This is illegal. Store opioids in a secure place and out of reach of others (including children, family, friends and visitors). The last page(s) of this document has been signed and retained as a CHART COPY Signatures Patient Education Materials Skin Avulsion Medication Leaflets My discharge plan and instructions have been reviewed and explained to me and I,ASHLEY RUBIO understand my current condition and have read and understand these discharge instructions. I have received a written copy of the plan/instructions. If I have questions, I am aware that I should contact my doctor. 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: _ Date/Time: Relationship to Patient: Witness Name/Signature: Date/Time: [facility] Evaluation + Plan note Note Date & Type Note Facility Evaluation + Plan note No data available for this section [facility] Hospital Discharge instructions Note Date & Type Note Facility Hospital Discharge instructions No data available for this section [facility] Progress note Note Date & Type Note Facility Progress note No data available for this section [facility] Summary Purpose Family History No Family History Records Found Advance Directives No Advanced Directives Records Found Additional Source Comments Care Team (unrecognized sect ion and content) Personnel Name: SRAVAN GARSIA MD Address: [address] [address]- Care Team (unrecognized sect ion and content) Care Team Personnel Name: SRAVAN GARSIA MD Member Role: Primary Care Physician Address: Address: [address] [place] [address]- Care Team Personnel Name: SRAVAN GARSIA MD Member Role: Primary Care Physician Address: Address: [address] [place] [address]- Name: Virginia Jones RN Position: AO RN Member Role: ED RN Name: JOHNNY GARCIA MD Position: ED Physician Member Role: ED Physician Address: Address: THUAN KEITH [facility] [address] [place] [address]- [place] (unrecognized sect ion and content) No Status Records Found INFORMATION SOURCE (unrecogn ized section and content) FOR RECORDS PERTAINING TO PATIENTS WHO ARE OR HAVE BEEN ENROLLED IN A CHEMICAL DEPENDENCY/SUBSTANCEABUSE PROGRAM, SOME INFORMATION MAY BE OMITTED. This clinical summary was aggregated from multiple sources. Caution should be exercised in using it in the provision of clinical care. This summary normalizes information from multiple sources, and as a consequence, information in this document may materially change the coding, format and clinical context of patient data. In addition, data may be omitted in some cases. CLINICAL DECISIONS SHOULD BE BASED ON THE PRIMARY CLINICAL RECORDS. [facility] [employer] [facility]. provides no warranty or guarantee of the accuracy or completeness of information in this document.
[2023-04-28 10:27] LABS: Absolute Lymphocyte Count 1.87 X10^3/uL (0.83-4.51); Absolute Neutrophil Count 3.6 X10^3/uL (2.0-7.7); Basophil# 0.03 X10^3/uL; Basophil% 0.5 % (0-1); Eosinophil# 0.17 X10^3/uL; Eosinophils% 2.7 % (0-5); Hematocrit 40.2 % (40-54); Hemoglobin 13.5 g/dL (13.0-16.5); Lymphocyte # 1.87 X10^3/ul (0.83-4.51); Lymphocyte % 29.9 % (19-41); Mean Corp Hgb Conc 33.6 g/dL (32-36); Mean Corpuscular Hgb 31.1 pg (27.0-32.0); Mean Corpuscular Volume 92.6 fL (80-94); Mean Platelet Vol. 10.6 fl (6.2-12.0); Monocyte# 0.53 X10^3/uL; Monocyte% 8.5 % (0-10); NRBC Flagged by Analyzer 0 % (0-5); Neutrophil # 3.61 X10^3/uL (2.7-7.7); Neutrophil % 57.8 % (47-70); Platelet Count 190 K/mm3 (150-450); RBC Distribution Width CV 13.6 % (11.6-14.6); RBC Distribution Width SD 46.1 fl (35.1-43.9); Red Blood Count 4.34 M/mm3 (4.6-6.2); White Blood Count 6.3 K/mm3 (4.4-11.0)
[2023-04-28 10:55] LABS: BNP,B-Type NATRIURETIC PEPTIDE 15.2 pg/mL (0-100)
[2023-04-28 10:58] LABS: Vitamin D,25 Hydroxy 28.5 ng/mL
[2023-04-28 11:30] LABS: ALB/GLOB Ratio 0.9 RATIO (0.9-2.4); AST(SGOT) 42 U/L (15-37); Alanine Aminotransfer ALT/SGPT 56 U/L (16-61); Albumin, Serum 3.5 g/dL (3.2-5.0); Alkaline Phosphatase 75 U/L (45-117); Anion Gap 8 (5-15); BUN 15 mg/dL (7-18); BUN/Creat Ratio 13.9 RATIO (10-20); Chloride 107 mmol/L (98-107); Cholesterol 200 mg/dL (200); Creatinine, Serum 1.08 mg/dL (0.70-1.30); EST Glomerular Filtration Rate 77 mL/min (>60); Est Glom Filt Rate - Afr Amer 93 mL/min (>60); Free T3 2.4 pg/mL (2.18-3.98); Globulin 3.9 g/dL (2.2-4.2); Glucose 189 mg/dL (74-106); High Density Lipoprotein 51 mg/dL; Potassium 4.6 mmol/L (3.5-5.1); Protein, Total 7.4 g/dL (6.4-8.2); Sodium Level 137 mmol/L (136-145); T4 Free Direct 1.26 ng/dL (0.76-1.46); Thyroid Stim Hormone (TSH) 1.57 uIU/mL (0.358-3.74); Triglycerides 225 mg/dL; Very Low Density Lipoprotein 45 mg/dL (5-40)
[2023-04-28 11:39] LABS: Hemoglobin A1c 6.9 % (3.8-5.6)
[2023-05-06 11:08] LABS: Testosterone, % Free 2.39 % (1.50-4.20); Testosterone, Free 4.23 ng/dL (5.00-21.00); Testosterone, Total 177 ng/dL (264-916)
== END | disposition home or self-care (01) ==
LOC: MTLAB 08:21
PROVIDERS: PCP Internal Medicine; Referring Provider Internal Medicine; Visit Provider Internal Medicine
DX: I10 Essential (primary) hypertension (principal); E11.65 Type 2 diabetes mellitus with hyperglycemia; E66.01 Morbid (severe) obesity due to excess calories; Z68.42 Body mass index [BMI] 45.0-49.9, adult; E89.0 Postprocedural hypothyroidism; E29.1 Testicular hypofunction; Z13.220 Encounter for screening for lipoid disorders
CPT/HCPCS: 36415; 80053; 80061; 82306; 83036; 83880; 84402; 84403; 84439; 84443; 84481; 85025

== ENCOUNTER → 2023-12-15 | Outpatient (CLI) | payer OTHER, SELFPAY ==
[2023-12-15 10:21] LABS: Absolute Lymphocyte Count 2.34 X10^3/uL (0.83-4.51); Absolute Neutrophil Count 4.5 X10^3/uL (2.0-7.7); Basophil# 0.04 X10^3/uL; Basophil% 0.5 % (0-1); Eosinophil# 0.15 X10^3/uL; Hematocrit 43.5 % (40-54); Lymphocyte # 2.34 X10^3/ul (0.83-4.51); Lymphocyte % 30.5 % (19-41); Mean Corp Hgb Conc 34.5 g/dL (32-36); Mean Corpuscular Hgb 31.9 pg (27.0-32.0); Mean Corpuscular Volume 92.6 fL (80-94); Mean Platelet Vol. 10.4 fl (6.2-12.0); Monocyte% 7.8 % (0-10); NRBC Flagged by Analyzer 0 % (0-5); Neutrophil # 4.49 X10^3/uL (2.7-7.7); Neutrophil % 58.5 % (47-70); Platelet Count 210 K/mm3 (150-450); RBC Distribution Width CV 12.9 % (11.6-14.6); RBC Distribution Width SD 43.9 fl (35.1-43.9); White Blood Count 7.7 K/mm3 (4.4-11.0)
[2023-12-15 11:26] LABS: Vitamin D,25 Hydroxy 42.9 ng/mL
[2023-12-15 12:09] LABS: ALB/GLOB Ratio 0.9 RATIO (0.9-2.4); AST(SGOT) 34 U/L (15-37); Alanine Aminotransfer ALT/SGPT 44 U/L (16-61); Albumin, Serum 3.6 g/dL (3.2-5.0); Alkaline Phosphatase 60 U/L (45-117); Anion Gap 15 (5-15); BUN 17 mg/dL (7-18); Calcium,Total 9.2 mg/dL (8.5-10.1); Chloride 98 mmol/L (98-107); Cholesterol 181 mg/dL (200); Creatinine, Serum 1.13 mg/dL (0.70-1.30); EST Glomerular Filtration Rate 73 mL/min (>60); Est Glom Filt Rate - Afr Amer 88 mL/min (>60); Glucose 89 mg/dL (74-106); High Density Lipoprotein 44 mg/dL; PSA,Total - Annual Screen 1.02 ng/mL (0.00-4.00); Potassium 4.3 mmol/L (3.5-5.1); Protein, Total 7.6 g/dL (6.4-8.2); Sodium Level 132 mmol/L (136-145); Triglycerides 255 mg/dL; Very Low Density Lipoprotein 51 mg/dL (5-40)
[2023-12-15 12:37] LABS: Hemoglobin A1c 5.7 % (3.8-5.6)
[2023-12-21 16:07] LABS: Testosterone, % Free 3.63 % (1.50-4.20); Testosterone, Free 15.21 ng/dL (5.00-21.00); Testosterone, Total 419 ng/dL (264-916)
== END | disposition home or self-care (01) ==
LOC: MTLAB 07:47
PROVIDERS: PCP Internal Medicine; Referring Provider Internal Medicine; Visit Provider Internal Medicine
DX: Z12.5 Encounter for screening for malignant neoplasm of prostate (principal); E11.65 Type 2 diabetes mellitus with hyperglycemia; I10 Essential (primary) hypertension; E78.2 Mixed hyperlipidemia; E55.9 Vitamin D deficiency, unspecified; Z13.220 Encounter for screening for lipoid disorders
CPT/HCPCS: 36415; 80053; 80061; 82306; 83036; 84153; 84402; 84403; 85025; G0103

== ENCOUNTER → 2024-08-12 | Outpatient (CLI) | payer OTHER, SELFPAY ==
[2024-08-12 13:15] LABS: Microalbumin,Random Urine 25.2 mg/L (NO RANGE EST.)
[2024-08-12 13:38] LABS: ALB/GLOB Ratio 1.2 RATIO (0.9-2.4); AST(SGOT) 65 U/L (<=37); Alanine Aminotransfer ALT/SGPT 180 U/L (<=46); Albumin, Serum 4.3 g/dL (3.5-5.0); Alkaline Phosphatase 59 U/L (40-129); Anion Gap 16 (5-15); BUN 10 mg/dL (4-19); BUN/Creat Ratio 11.1 RATIO (10-20); Calcium,Total 9.5 mg/dL (7.6-11.0); Carbon Dioxide 22.1 mmol/L (21.0-32.0); Chloride 95 mmol/L (98-108); Cholesterol 168 mg/dL (<=200); Creatinine, Serum 0.94 mg/dL (0.70-1.20); EST Glomerular Filtration Rate 99 (>60); Globulin 3.5 g/dL (2.2-4.2); Glucose 97 mg/dL (70-99); High Density Lipoprotein 56 mg/dL; Low Density Lipoprotein Calc. 80 mg/dL; Protein, Total 7.8 g/dL (5.9-8.4); Sodium Level 133 mmol/L (133-145); Thyroid Stim Hormone (TSH) 0.013 uIU/mL (0.300-4.200); Triglycerides 160 mg/dL; Very Low Density Lipoprotein 32 mg/dL (5-40); cholesterol:hdl ratio screen 3.01
[2024-08-13 17:08] LABS: Anti-Thyroglobulin AB < 1.0 IU/mL (0.0-0.9); Thyroglobulin, Serum Qt. < 0.1 ng/mL (1.4-29.2)
== END | disposition home or self-care (01) ==
LOC: MTLAB 09:04
PROVIDERS: PCP Internal Medicine; Referring Provider Internal Medicine Endocrinology, Diabetes & Metabolism; Visit Provider Internal Medicine Endocrinology, Diabetes & Metabolism
DX: E11.65 Type 2 diabetes mellitus with hyperglycemia (principal); C73 Malignant neoplasm of thyroid gland; I10 Essential (primary) hypertension; E89.0 Postprocedural hypothyroidism
CPT/HCPCS: 36415; 80053; 80061; 82043; 82570; 84432; 84439; 84443; 86800

== ENCOUNTER → 2024-09-20 | Outpatient (CLI) | payer OTHER, SELFPAY ==
[2024-09-20 12:31] LABS: ALB/GLOB Ratio 1.3 RATIO (0.9-2.4); AST(SGOT) 42 U/L (<=37); Alanine Aminotransfer ALT/SGPT 20 U/L (<=46); Albumin, Serum 4.3 g/dL (3.5-5.0); Alkaline Phosphatase 49 U/L (40-129); Anion Gap 18 (5-15); BUN 13 mg/dL (4-19); BUN/Creat Ratio 12.2 RATIO (10-20); Calcium,Total 9.3 mg/dL (7.6-11.0); Carbon Dioxide 23.1 mmol/L (21.0-32.0); Chloride 88 mmol/L (98-108); EST Glomerular Filtration Rate 82 (>60); Globulin 3.4 g/dL (2.2-4.2); Glucose 78 mg/dL (70-99); Potassium 3.7 mmol/L (3.3-5.1); Protein, Total 7.7 g/dL (5.9-8.4); Sodium Level 129 mmol/L (133-145); Total Bilirubin 0.79 mg/dL (0.00-1.30)
== END | disposition home or self-care (01) ==
LOC: MTLAB 08:14
PROVIDERS: PCP Internal Medicine; Referring Provider Internal Medicine Endocrinology, Diabetes & Metabolism; Visit Provider Internal Medicine Endocrinology, Diabetes & Metabolism
DX: E89.0 Postprocedural hypothyroidism (principal); I10 Essential (primary) hypertension
CPT/HCPCS: 36415; 80053; 84439; 84443

== ENCOUNTER → 2024-12-22 | Outpatient (CLI) | payer OTHER, SELFPAY ==
[2024-12-22 10:54] LABS: AST(SGOT) 42 U/L (<=37); Alanine Aminotransfer ALT/SGPT 28 U/L (<=46); Albumin, Serum 4.5 g/dL (3.5-5.0); Alkaline Phosphatase 56 U/L (40-129); Anion Gap 14 (5-15); BUN 14 mg/dL (4-19); BUN/Creat Ratio 12.7 RATIO (10-20); Calcium,Total 9.3 mg/dL (7.6-11.0); Carbon Dioxide 24.7 mmol/L (21.0-32.0); Chloride 97 mmol/L (98-108); Globulin 3.3 g/dL (2.2-4.2); Glucose 95 mg/dL (70-99); Potassium 4.1 mmol/L (3.3-5.1)
[2024-12-25 12:08] LABS: Testosterone, % Free 3.42 % (1.50-4.20); Testosterone, Free 11.76 ng/dL (5.00-21.00); Thyroglobulin, Serum Qt. 0.1 ng/mL (1.4-29.2)
== END | disposition home or self-care (01) ==
LOC: MTLAB 07:53
PROVIDERS: PCP Internal Medicine; Referring Provider Internal Medicine Endocrinology, Diabetes & Metabolism; Visit Provider Internal Medicine Endocrinology, Diabetes & Metabolism
DX: E11.65 Type 2 diabetes mellitus with hyperglycemia (principal); C73 Malignant neoplasm of thyroid gland; E78.2 Mixed hyperlipidemia; I10 Essential (primary) hypertension; E89.0 Postprocedural hypothyroidism
CPT/HCPCS: 36415; 80053; 84402; 84403; 84432; 84443; 86800

== ENCOUNTER → 2025-01-13 | Outpatient (CLI) | payer OTHER, SELFPAY ==
--- OUTSIDE RECORDS SUMMARY | 2025-01-13 08:13 | XMS RPT_ITS | CCD ---
Author Organization [facility] CliniSymd Care Team Providers Care Police Communications Dispatcher Name Role Phone Dr. Sravan Garsia Primary Care Provider Dr. Sravan Garsia Attending Provider [phone] Dr. Sravan Garsia Referring Provider Dr. Katie Montelongo Attending Provider Dr. Bin Gunn Attending Provider Dr. Katie Montelongo Referring Provider SUN LUCERO, SRAVAN Primary Care Physician ([facility])[phone] Dr. Sravan Garsia Primary Care Provider Dr. Sravan Garsia Referring Provider Dr. Katie Montelongo Attending Provider Dr. Vidal Naidu Attending Provider Dr. Rafy Mcmahon Attending Provider Dr. Sravan Garsia Primary Care Provider Dr. Sravan Garsia Referring Provider [phone] Bin Gunn Attending Provider Dr. Chin Matos Referring Provider SUN LUCERO, SRAVAN Primary Care Physician [phone] SHELLEY JAVED DO Attending Unavailable SUN LUCERO, SRAVAN Primary Care Unavailable Sun LUCERO, Dr. Alaniz Primary Care Provider Dr. Sravan Garsia MD Referring Provider Dr. Katie Montelongo MD Attending Provider Dr. Katie Montelongo MD Referring Provider King JAZMINE, Dr. Spangler Attending Provider Unavailable SUN LUCERO, SRAVAN Primary Care Unavailable MAHSA LUCERO, DR GUNTER Attending Unavailab le Reginald, Katie Referring Unavailable Sun, Sravan Primary Care Unavailable Reginald, Katie Attending Unavailable Sun, Sravan Referring Unavailable Sun, Sravan Primary Care Unavailable Sun, Sravan Attending Unavailable Sun, Sravan Primary Care Unavailable Reginald, Katie Attending Unavailable Sun, Sravan Referring Unavailable Sun, Sravan Primary Care Unavailable Reginald, Katie Attending Unavailable Sun, Sravan Referring Unavailable Reginald, Katie Attending Unavailable Sun, Sravan Primary Care Unavailable Sun, Sravan Referring Unavailable Sun, Sravan Primary Care Unavailable Reginald, Katie Attending Unavailable Sun, Sravan Referring Unavailable Sun, Sravan Primary Care Unavailable Kaushik Freeman Attending Unavailable PraysonKaushik Referring Unavailable Reginald, Katie Referring Unavailable Sun, Sravan Primary Care Unavailable Reginald, Katie Attending Unavailable Sun, Sravan Primary Care Unavailable Reginald, Katie Referring Unavailable Reginald, Katie Attending Unavailable Allergies Allergy Classification Reported Allergen(s) Allergy Type Date of Onset Reaction(s) Facility (12 sources) Cephalexin; Translations: [cephalexin] Drug Allergy 07-17-2021 [facility] (1 source) Cephalexin Drug Allergy 11-09-2024 [facility] Repository Medications Current Medications Medication Drug Class(es) Dates Sig (Normalized) Sig (Original) Blood-Glucose Meter (Onetouch Verio Flex Meter) misc (4 sources) Start: 11-21-2023 Blood-Glucose Meter (Onetouch Verio Flex Meter) misc Active 0 .Route 1 0 November 21, 2023 12:00am As directed Start: 11-21-2023 Blood-Glucose Meter (Onetouch Verio Flex Meter) misc Active 0 .Route 1 November 21, 2023 12:00am As directed cholecalciferol 0.05 mg oral capsule (9 sources) Vitamin D Start: 02-19-2021 take 1 capsule by mouth once daily Cholecalciferol (Vitamin D3) 50 mcg (2,000 unit) capsule Active 50 ug PO DAILY February 19, 2021 12:00am sulfamethoxazole 800 mg / trimethoprim 160 mg oral tablet (1 source) Dihydrofolate Reductase Inhibitor Antibacterial, Sulfonamide Antimicrobial Start: 10-14-2024 End: 10-24-2024 take 1 tablet by mouth twice daily Bactrim DS 800 mg-160 mg oral tablet Dose = 1 tab(s), Oral, BID, X 10 day(s), # 20 tab(s), 0 Refill(s), 150 Start Date: 10/14/24 Stop Date: 10/24/24 Status: Ordered Quantity: 20.0 Unit: tab(s) Repeat number: 1 Tirzepatide (Mounjaro) 7.5 mg/0.5 mL pen injector (1 source) Start: 11-09-2024 Tirzepatide (Mounjaro) 7.5 mg/0.5 mL pen injector Active 7.5 mg SC EVERY WEEK 2 November 09, 2024 12:00am Completed/Discontinued Medications Medication Drug Class(es) Dates Sig (Normalized) Sig (Original) amLODIPine 5 mg oral tablet (20 sources) Dihydropyridine Calcium Channel Efra Start: 11-19-2023 End: 11-20-2023 take 1 tablet by mouth once daily Amlodipine 5 mg tablet Discontinued 5 mg PO DAILY 30 November 19, 2023 12:00am November 20, 2023 8:02am Start: 02-14-2023 End: 04-25-2023 take 1 tablet by mouth twice daily Amlodipine 10 mg tablet Discontinued 10 mg PO TWICE A DAY 180 February 14, 2023 7:11pm April 25, 2023 12:36pm Start: 02-05-2023 End: 02-14-2023 take 2 tablets by mouth twice daily Amlodipine 10 mg tablet Discontinued 20 mg PO TWICE A DAY 180 February 07, 2023 2:12pm February 14, 2023 7:11pm Start: 02-05-2023 End: 02-14-2023 take 20 mg by mouth twice daily Amlodipine Discontinue d 20 MG PO TWICE A DAY February 07, 2023 1:12pm February 14, 2023 6:11pm Start: 12-06-2022 End: 02-05-2023 take 1 tablet by mouth once daily Amlodipine 10 mg tablet Discontinued 10 mg PO DAILY 90 December 06, 2022 12:00am February 05, 2023 9:10am Start: 07-17-2021 End: 12-06-2022 take 1 tablet by mouth once daily Amlodipine 5 mg tablet Discontinued 5 mg PO DAILY 90 November 14, 2021 9:35am November 01, 2022 8:04am atorvastatin 40 mg oral tablet (9 sources) HMG-CoA Reductase Inhibitor Start: 03-07-2021 End: 06-13-2023 take 1 tablet by mouth once daily Atorvastatin 40 mg tablet Discontinued 40 mg PO DAILY March 07, 2021 1:00am June 13, 2023 9:19am Blood-Glucose Sensor (Freestyle Eulogio 3 Sensor) device (4 sources) Start: 06-13-2023 End: 11-09-2024 Blood-Glucose Sensor (Freestyle Eulogio 3 Sensor) device Discontinued 0 .Route 6 June 13, 2023 1:00am November 09, 2024 2:15pm As directed Start: 06-13-2023 Blood-Glucose Sensor (Freestyle Eulogio 3 Sensor) device Active 0 .Route 6 June 13, 2023 1:00am As directed busPIRone hydrochloride 15 mg oral tablet (20 sources) Start: 02-19-2021 End: 06-29-2024 take 1 tablet by mouth twice daily Buspirone 15 mg tablet Discontinued 15 mg PO TWICE A DAY 30 April 06, 2024 11:03am June 29, 2024 11:49am chlorthalidone 25 mg oral tablet (17 sources) Thiazide-like Diuretic Start: 02-19-2021 End: 11-01-2022 take 1 tablet by mouth once daily Chlorthalidone 25 mg tablet Discontinued 25 mg PO DAILY July 31, 2021 8:09am November 01, 2022 8:05am cyclobenzaprine hydrochloride 10 mg oral tablet (9 sources) Muscle Relaxant Start: 06-19-2021 End: 11-01-2022 take 1 tablet by mouth three times daily Cyclobenzaprine 10 mg tablet Discontinued 10 mg PO THREE TIMES A DAY 30 June 19, 2021 1:00am November 01, 2022 8:04am dapagliflozin 10 mg oral tablet (4 sources) Sodium-Glucose Cotransporter 2 Inhibitor Start: 11-21-2023 End: 08-03-2024 take 1 tablet by mouth once daily Dapagliflozin Propanediol (Farxiga) 10 mg tablet Discontinued 10 mg PO DAILY 90 November 21, 2023 12:00am August 03, 2024 1:44pm Flucelvax Quad (flu vac qs (6 ms up) CD) 60 mcg (15 mcg x (2 sources) Start: 03-09-2021 End: 03-09-2021 inject 15 ug by intramuscular injection once Flucelvax Quad (flu vac qs (6 ms up) CD) 60 mcg (15 mcg x Discontinued 60 MCG IM ONCE 0.5 March 09, 2021 4:30pm March 09, 2021 4:44pm FLUoxetine 40 mg oral capsule (20 sources) Serotonin Reuptake Inhibitor Start: 03-26-2021 End: 06-29-2024 take 1 capsule by mouth once daily Fluoxetine 40 mg capsule Discontinued 40 mg PO DAILY 90 October 30, 2023 10:10am June 29, 2024 11:49am Start: 02-19-2021 End: 03-26-2021 take 1 tablet by mouth once daily, then take 2 tablets by mouth once daily Fluoxetine 20 mg tablet Discontinued 40 mg PO DAILY 60 February 19, 2021 12:00am March 26, 2021 10:33am Take one tab daily for one week then two tabs daily. Start: 02-19-2021 End: 03-26-2021 take 1 tablet by mouth once daily, then take 2 tablets by mouth once daily Fluoxetine Discontinued 40 MG PO DAILY 60 February 18, 2021 11:00pm March 26, 2021 9:33am Take one tab daily for one week then two tabs daily. furosemide 20 mg oral tablet (5 sources) Loop Diuretic Start: 03-17-2023 End: 05-28-2023 take 1 tablet by mouth once daily in the morning Furosemide 20 mg tablet Discontinued 20 mg PO DAILY 10 March 17, 2023 1:00am May 28, 2023 10:00am Take one tab daily each AM for 3 days. glimepiride 2 mg oral tablet (17 sources) Sulfonylurea Start: 11-21-2023 End: 08-03-2024 take 1 tablet by mouth once daily Glimepiride 2 mg tablet Discontinued 2 mg PO DAILY 90 May 03, 2024 1:47pm August 03, 2024 2:04pm Start: 11-01-2022 End: 11-21-2023 take 1 tablet by mouth once daily Glimepiride 4 mg tablet Discontinued 4 mg PO DAILY 90 October 13, 2023 8:07am November 21, 2023 8:20am hydroCHLOROthiazide 25 mg / lisinopril 20 mg oral tablet (20 sources) Thiazide Diuretic, Angiotensin Converting Enzyme Inhibitor Start: 04-25-2023 End: 06-29-2024 Lisinopril-Hydrochlorothiazi de 20-25 mg tablet Discontinued 1 {tbl} PO DAILY 90 June 25, 2023 9:12am June 29, 2024 11:49am Start: 04-25-2023 take 1 tablet by danii th once daily Lisinopril-Hydrochlorothiazide Active 1 TABLET PO DAILY April 25, 2023 12:00am levothyroxine sodium 0.3 mg oral tablet (20 sources) l-Thyroxine Start: 02-19-2021 End: 09-22-2024 take 1 tablet by mouth once daily Levothyroxine 300 mcg tablet Discontinued 300 ug PO DAILY 90 June 21, 2024 1:36pm September 22, 2024 9:52am lisinopril 40 mg oral tablet (20 sources) Angiotensin Converting Enzyme Inhibitor Start: 02-19-2021 End: 04-25-2023 take 1 tablet by mouth once daily Lisinopril 40 mg tablet Discontinued 40 mg PO DAILY July 08, 2022 7:26am April 25, 2023 12:36pm metFORMIN hydrochloride 1000 mg oral tablet (20 sources) Biguanide Start: 02-19-2021 End: 11-09-2024 take 1 tablet by mouth twice daily Metformin 1,000 mg tablet Discontinued 1000 mg PO TWICE A DAY 60 July 08, 2022 8:25am November 01, 2022 8:20am 24 hr metoprolol succinate 100 mg extended release oral tablet (20 sources) beta-Adrenergic Efra Start: 02-19-2021 End: 07-19-2024 take 1 tablet by mouth once daily Metoprolol Succinate 100 mg tablet extended release 24 hr Discontinued 100 mg PO DAILY 90 January 20, 2024 8:30am July 19, 2024 9:05am omeprazole 20 mg delayed release oral tablet (20 sources) Proton Pump Inhibitor Start: 07-17-2021 End: 2021 take 1 capsule by mouth once daily Omeprazole 40 mg capsule,delayed release(DR/EC) Discontinued 40 mg PO DAILY July 17, 2021 12:00am 2021 11:46am Start: 02-19-2021 End: 06-29-2024 take 2 tablets by mouth once daily Omeprazole 20 mg tablet,delayed release (DR/EC) Discontinued 40 mg PO DAILY 180 July 02, 2023 2:55pm June 29, 2024 11:49am Start: 02-19-2021 End: 04-10-2022 take 40 mg by mouth once daily Omeprazole Active 40 MG PO DAILY 180 April 10, 2022 9:21am 1 ml testosterone cypionate 200 mg/ml injection (20 sources) Androgen Start: 02-19-2021 End: 07-15-2024 inject 200 mg by intramuscular injection every other week Testosterone Cypionate 200 mg/mL oil Discontinued 200 mg IM every 2 weeks 6 July 09, 2024 10:32am July 15, 2024 4:32pm Start: 02-19-2021 End: 02-06-2023 inject 200 mg by intramuscular injection every other week Testosterone Cypionate Active 200 MG IM every 2 weeks February 06, 2023 9:51am Tirzepatide (Mounjaro) 2.5 mg/0.5 mL pen injector (13 sources) Start: 06-15-2024 End: 06-15-2024 Tirzepatide (Mounjaro) 2.5 mg/0.5 mL pen injector Discontinued 2.5 mg SC EVERY WEEK 2 June 15, 2024 12:50pm June 15, 2024 5:19pm for 4 weeks Start: 06-15-2024 End: 06-15-2024 Tirzepatide (Mounjaro) 2.5 m g/0.5 mL pen injector Discontinued 2.5 mg SC EVERY WEEK 2 June 15, 2024 12:50pm June 15, 2024 5:19pm for 4 weeks Start: 05-18-2024 End: 06-15-2024 Tirzepatide (Mounjaro) 2.5 m g/0.5 mL pen injector Discontinued 2.5 mg SC EVERY WEEK 2 May 18, 2024 1:00am June 15, 2024 12:50pm for 4 weeks Start: 05-18-2024 End: 06-15-2024 Tirzepatide (Mounjaro) 2.5 m g/0.5 mL pen injector Discontinued 2.5 mg SC EVERY WEEK 2 May 18, 2024 1:00am June 15, 2024 12:50pm for 4 weeks Start: 06-25-2022 End: 11-01-2022 Tirzepatide (Mounjaro) 2.5 m g/0.5 mL pen injector Discontinued 2.5 mg SC EVERY WEEK June 25, 2022 1:00am November 01, 2022 8:06am Start: 06-25-2022 End: 11-01-2022 Tirzepatide (Mounjaro) 2.5 m g/0.5 mL pen injector Discontinued 2.5 mg SC EVERY WEEK 2 June 25, 2022 1:00am November 01, 2022 8:06am Start: 06-25-2022 End: 11-01-2022 Tirzepatide (Mounjaro) 2.5 m g/0.5 mL pen injector Discontinued 2.5 MG SC EVERY WEEK 2 June 25, 2022 12:00am November 01, 2022 7:06am Tirzepatide (Mounjaro) 5 mg/ 0.5 mL pen injector (11 sources) Start: 09-20-2024 End: 11-09-2024 Tirzepatide (Mounjaro) 5 mg/ 0.5 mL pen injector Discontinued 5 mg SC EVERY WEEK 2 September 20, 2024 2:38pm November 09, 2024 2:14pm Start: 09-20-2024 Tirzepatide (M ounjaro) 5 mg/0.5 mL pen injector Active 5 mg SC EVERY WEEK September 20, 2024 2:38pm Start: 08-09-2024 End: 09-20-2024 Tirzepatide (Mounjaro) 5 mg/ 0.5 mL pen injector Discontinued 5 mg SC EVERY WEEK 2 August 09, 2024 5:14pm September 20, 2024 2:38pm Start: 08-09-2024 End: 09-20-2024 Tirzepatide (Mounjaro) 5 mg/ 0.5 mL pen injector Discontinued 5 mg SC EVERY WEEK 2 August 09, 2024 5:14pm September 20, 2024 2:38pm Start: 08-09-2024 Tirzepatide (M ounjaro) 5 mg/0.5 mL pen injector Active 5 mg SC EVERY WEEK 2 August 09, 2024 5:14pm Start: 06-15-2024 End: 08-09-2024 Tirzepatide (Mounjaro) 5 mg/ 0.5 mL pen injector Discontinued 5 mg SC EVERY WEEK 2 June 15, 2024 1:00am August 09, 2024 5:14pm Start: 06-15-2024 End: 08-09-2024 Tirzepatide (Mounjaro) 5 mg/ 0.5 mL pen injector Discontinued 5 mg SC EVERY WEEK 2 June 15, 2024 1:00am August 09, 2024 5:14pm Tirzepatide (Weight Loss) (4 sources) Start: 08-03-2024 End: 08-09-2024 Tirzepatide (Weight Loss) (Z epbound) 5 mg/0.5 mL solution Discontinued 5 mg SC EVERY WEEK 2 3 August 03, 2024 12:00am August 09, 2024 5:15pm Start: 08-03-2024 End: 08-09-2024 Tirzepatide (Weight Loss) (Z epbound) 5 mg/0.5 mL solution Discontinued 5 mg SC EVERY WEEK 2 August 03, 2024 12:00am August 09, 2024 5:15pm triamcinolone acetonide 40 mg/ml injectable suspension (2 sources) Corticosteroid Start: 03-14-2021 End: 03-14-2021 Kenalog (triamcinolone acetonide) 40 mg/mL suspension for injection Discontinued 80 MG INTRAARTIC ONCE 2 March 14, 2021 9:42am March 14, 2021 10:17am Problems Problem Classification Problem Date Documented Date Episodic/Chronic Alcohol-related disorders (9 sources) Alcohol abuse; Translations: [Alcohol abuse, uncomplicated] 07-23-2021 Chronic Anxiety disorders (9 sources) Anxiety; Translations: [Anxiety disorder, unspecified] 02-19-2021 Chronic Cancer of thyroid (18 sources) Malignant tumor of thyroid gland; Translations: [Malignant neoplasm of thyroid gland] Onset: 11-09-2024 Chronic Complications of surgical procedures or medical care (17 sources) Postoperative hypothyroidism; Translations: [Postprocedural hypothyroidism] Onset: 01-16-2024 Chronic Diabetes mellitus with complications (1 source) Type 2 diabetes mellitus with hyperglycemia; Translations: [Type 2 diabetes mellitus with hyperglycemia] Onset: 01-07-2025 Chronic Diabetes mellitus without complication (19 sources) Diabetes mellitus; Translations: [Type 2 diabetes mellitus without complications] Chronic Disorders of lipid metabolism (15 sources) Hyperlipidemia; Translations: [Hyperlipidemia, unspecified] Onset: 01-16-2024 Chronic Essential hypertension (20 sources) Hypertensive disorder; Translations: [Essential (primary) hypertension] Onset: 01-16-2024 Chronic Malignant neoplasm without specification of site (9 sources) Malignant neoplastic disease; Translations: [Malignant (primary) neoplasm, unspecified] 02-19-2021 Chronic Comment on above: thyroid Mood disorders (10 sources) Depressive disorder; Translations: [Depression] Chronic Osteoarthritis (9 sources) Osteoarthritis of right knee joint; Translations: [Unilateral primary osteoarthritis, right knee] 03-07-2021 Chronic Other connective tissue disease (7 sources) Pain in lower limb; Translations: [Pain in right leg] 12-19-2021 Episodic Other endocrine disorders (6 sources) Male hypogonadism; Translations: [Testicular hypofunction] 11-01-2022 Chronic Other endocrine disorders (1 source) Testicular hypofunction; Translations: [Testicular hypofunction] Onset: 11-09-2024 Chronic Other nervous system disorders (9 sources) Right leg peripheral neuropathy; Translations: [Meralgia paresthetica, right lower limb] 02-19-2021 Chronic Other non-traumatic joint disorders (9 sources) Pain in right knee; Translations: [Right medial knee pain] 02-19-2021 Episodic Other nutritional; endocrine; and metabolic disorders (5 sources) Body mass index 40+ - severely obese; Translations: [Morbid (severe) obesity due to excess calories] 02-19-2021 Chronic Other nutritional; endocrine; and metabolic disorders (13 sources) Obesity; Translations: [Obesity, unspecified] 07-23-2021 Chronic Other nutritional; endocrine; and metabolic disorders (3 sources) Morbid (severe) obesity due to excess calories; Translations: [Morbid obesity] Onset: 01-16-2024 Chronic Other nutritional; endocrine; and metabolic disorders (3 sources) Obesity, unspecified; Translations: [Obesity, unspecified] Chronic Other nutritional; endocrine; and metabolic disorders (1 source) Body mass index (BMI) 45.0-49.9, adult; Translations: [Body mass index [BMI] 45.0-49.9, adult] Onset: 01-16-2024 Chronic Other screening for suspected conditions (not mental disorders or infectious disease) (9 sources) Patient encounter status; Translations: [Encounter for screening for malignant neoplasm of prostate] 01-30-2022 Episodic Other skin disorders (5 sources) Skin lesion; Translations: [Disorder of the skin and subcutaneous tissue, unspecified] 01-30-2022 Episodic Skin and subcutaneous tissue infections (2 sources) Abscess of hand; Translations: [Cutaneous abscess of right hand] Onset: 10-14-2024 Episodic Spondylosis; intervertebral disc disorders; other back problems (20 sources) Cervical radiculopathy; Translations: [Radiculopathy, cervical region] Onset: 12-15-2024 Episodic Thyroid disorders (12 sources) Acquired hypothyroidism; Translations: [Hypothyroidism, unspecified] Onset: 01-16-2024 Chronic Results Test Name Value Interpretation Reference Range Facility Testosterone, Total / Freeon 12-25-2024 TESTOSTER,FREE 11.76 ng/dL Normal 5.00-21.00 [facility] Comment on above: Order Comment: Jarred n for Laboratory Test xN Performed By: #### L [id number], [id number], [id number], [id number] ####[facility] [address] [place], [place], [address] TESTOSTER,TOTAL 344 ng/dL Normal 264-916 [facility] Comment on above: Order Comment: Jarred n for Laboratory Test xN Result Comment: Adul t male reference interval is based on a population of healthy nonobese males (BMI <30) between 19 and 39 years old. peter Kate.al. JCEM 2017,102;8542-4521. PMID: [id number]. Performed By: #### L [id number], [id number], [id number], [id number] ####[facility] [address] [place], [address] TESTOSTERONE,%F 3.42 Normal 1.50-4.20 [facility] Comment on above: Order Comment: Reaso n for Laboratory Test xN Performed By: #### L [id number], [id number], [id number], [id number] ####[facility] [address] [place], [address] Thyroglobulin w/Anti-TG ABon 12-25-2024 Anti-TG AB < 1.0 Normal 0.0-0.9 [facility] Comment on above: Order Comment: Reaso n for Laboratory Test x Result Comment: Thyr oglobulin Antibody measured by [facility] [employer] It should be noted that the presence of thyroglobulin antibodies may not be pathogenic nor diagnostic, especially at very low levels. The assay parole board member has found that four percent of individuals without evidence of thyroid disease or autoimmunity will have positive TgAb levels up to 4 IU/mL. Performed By: #### L 500.4050, [id number], [id number], [id number] ####[facility] [address] [place], [address] THYROGLOB QUANT 0.1 ng/mL Low 1.4-29.2 [facility] Comment on above: Order Comment: Reaso n for Laboratory Test x Result Comment: Acco rding to the National Academy of Clinical Biochemistry, the reference interval for Thyroglobulin (TG) should be related to euthyroid patients and not for patients who underwent thyroidectomy. TG reference intervals for these patients depend on the residual mass of the thyroid tissue left after surgery. Establishing a post-operative baseline is recommended. The assay limit of quantitation is 0.1 ng/mL Thyroglobulin measured by [facility] Performed at: [id number] [id number] Artist Model: Jose Riley PhD, Phone: [phone] Performed at: [facility] [id number] Artist Model: Jeannie Duarte MD, Phone: [phone] Performed By: #### L 500.4050, [id number], [id number], [id number] ####[facility] [address] [place], [address] Comprehensive Metabolic Prof ilon 12-22-2024 Albumin [Mass/Vol] 4.5 g/dL Normal 3.5-5.0 [facility] Comment on above: Performed By: #### L 500.4050, [id number], [id number], [id number] #### [facility] [address] [place], [address] Albumin/Globulin [Mass ratio] 1.3 {ratio} Normal 0.9-2.4 [facility] Comment on above: Performed By: #### L 500.4050, [id number], [id number], [id number] #### [facility] [address] [place], [address] ALK PHOS 56 U/L Normal 40-129 [facility] Comment on above: Performed By: #### L 500.4050, [id number], [id number], [id number] #### [facility] [address] [place], [address] ALT [Catalytic activity/Vol] 28 U/L Normal <=46 [facility] Comment on above: Performed By: #### L 500.4050, [id number], [id number], [id number] #### [facility] [address] [place], [address] AST [Catalytic activity/Vol] 42 U/L High <=37 [facility] Comment on above: Performed By: #### L 500.4050, [id number], [id number], [id number] #### [facility] [address] [place], [address] Bilirubin [Mass/Vol] 0.90 mg/dL Normal 0.00-1.30 [facility] Comment on above: Performed By: #### L 500.4050, [id number], [id number], [id number] #### [facility] [address] [place], [address] BUN/CRE 12.7 RATIO Normal 10-20 [facility] Comment on above: Performed By: #### L 500.4050, [id number], [id number], [id number] #### [facility] [address] [place], [address] Calcium [Mass/Vol] 9.3 mg/dL Normal 7.6-11.0 [facility] Comment on above: Performed By: #### L 500.4050, [id number], [id number], [id number] #### [facility] [address] [place], [address] Chloride [Moles/Vol] 97 mmol/L Low 98-108 [facility] Comment on above: Performed By: #### L 500.4050, [id number], [id number], [id number] #### [facility] [address] [place], [address] CO2 [Moles/Vol] 24.7 mmol/L Normal 21.0-32.0 [facility] Comment on above: Performed By: #### L 500.4050, [id number], [id number], [id number] #### [facility] [address] [place], [address] Creatinine [Mass/Vol] 1.06 mg/dL Normal 0.70-1.20 [facility] Comment on above: Performed By: #### L 500.4050, [id number], [id number], [id number] #### [facility] [address] [place], [address] GAP 14 Normal 5-15 [facility] Comment on above: Performed By: #### L 500.4050, [id number], [id number], [id number] #### [facility] [address] [place], [address] GFR/1.73 sq M.predicted among non-blacks MDRD (S/P/Bld) [Vol rate/Area] 85 mL/min/{1.73_m2} Normal >60 [facility] Comment on above: Result Comment: mL/m in/1.73m2 CKD-EPI Creatinine Equation (2020) Performed By: #### L 500.4050, [id number], [id number], [id number] #### [facility] [address] [place], [address] Globulin (S) [Mass/Vol] 3.3 g/dL Normal 2.2-4.2 [facility] Comment on above: Performed By: #### L 500.4050, [id number], [id number], L3100.5310 #### [facility] [address] [place], [address] Glucose [Mass/Vol] 95 mg/dL Normal 70-99 [facility] Comment on above: Performed By: #### L 500.4050, L3300.6820, L501.9520, L3100.5310 #### [facility] [address] [place], [address] Potassium [Moles/Vol] 4.1 mmol/L Normal 3.3-5.1 [facility] Comment on above: Performed By: #### L 500.4050, L3300.6820, L501.9520, L3100.5310 #### [facility] [address] [place], [address] Sodium [Moles/Vol] 137 mmol/L Normal 133-145 [facility] Comment on above: Performed By: #### L 500.4050, L3300.6820, L501.9520, L3100.5310 #### [facility] [address] [place], [address] T PROT 7.8 g/dL Normal 5.9-8.4 [facility] Comment on above: Performed By: #### L 500.4050, L3300.6820, L501.9520, L3100.5310 #### [facility] [address] [place], [address] Urea nitrogen [Mass/Vol] 14 mg/dL Normal 4-19 [facility] Comment on above: Performed By: #### L 500.4050, L3300.6820, L501.9520, L3100.5310 #### [facility] [address] [place], [address] Thyroid Stim Hormone (TSH)on 12-22-2024 TSH 22.600 uIU/mL High 0.300-4.20 0 [facility] Comment on above: Performed By: #### L 500.4050, L3300.6820, L501.9520, L3100.5310 #### [facility] [address] [place], [address] Endocrinology Visit Reporton 11-09-2024 Endocrinology Visit Report [facility]. [address] [place], [place] [address] OFFICE VISIT Date of Service: 11/09/24 MR#: [id number] Acct: [id number] Name: ASHLEY RUBIO Rep #: [id number] : 1975 Provider: Corey Mckee Age/Sex: 48/M Location: [facility] Status: Signed Intake Vital Signs 08/03/24 13:39 09/20/24 13:41 11/09/24 13:46 Height 6 ft 3 in 6 ft 3 in 6 ft 3 in Weight: 331 lb BMI 41.3 BP 150/98 H Blood Pressure Location Lt brachial Position Sitting Pulse 73 Pulse Source Monitor Pulse Oximetry (%) 99 Oxygen Delivery Method room air Intake Visit Reasons: 3 M FU Chief Complaint: Diabetes/thyroid cancer Is patient in pain?: No Allergies cephalexin (From Keflex) Allergy (Intermediate, Verified 11/09/24 13:50) Swelling Medications ???Medication ???Instructions ???Recorded ???Confirmed ???Type cholecalciferol (vitamin D3) 50 50 mcg PO DAILY 02/19/21 11/09/24 History mcg (2,000 unit) capsule OneTouch Verio Flex meter #1 ea 11/21/23 11/09/24 Rx (blood-glucose meter) OneTouch Verio test strips (blood #100 ea 11/21/23 11/09/24 Rx sugar diagnostic) lancets 33 gauge (OneTouch Delica #100 ea 11/21/23 11/09/24 Rx Plus Lancet) buspirone 15 mg tablet 15 mg PO BID #180 tabs 06/29/24 Rx fluoxetine 40 mg capsule 40 mg PO DAILY #90 caps 06/29/24 0 11/09/24 Rx lisinopril 20 1 tab PO DAILY #90 tabs 06/29/24 0 11/09/24 Rx mg-hydrochlorothiazide 25 mg tablet omeprazole 20 mg tablet,delayed 40 mg (2 x 20 mg) PO DAILY #180 11/09/24 Rx release tabs testosterone cypionate 200 mg/mL 200 mg IM Q2W #6 mL 07/15/2411/09 Rx intramuscular oil metoprolol succinate 100 mg 100 mg PO DAILY #90 tabs 07/19/24 11/09/24 Rx tablet,extended release 24 hr levothyroxine 300 mcg tablet 300 mcg PO DAILY #90 tabs 09/22/24 11/09/24 Rx tirzepatide 7.5 mg/0.5 mL 7.5 mg (0.5 mL) subcut QWEEK #2 mL 11/09/24 11/09/24 Rx subcutaneous pen injector (Mounjaro) PFSH Medical History Back pain Uncontrolled hypertension Colon cancer screening Obesity Postoperative primary hypothyroidism Thyroid cancer Osteoarthritis of right knee Disorder of thyroid Hyperlipidemia Hypertension Gout History of emotional problems Cancer History of back problems Arthritis AA (alcohol abuse) Surgical History H/O thyroidectomy Social History Smoking Status: Former smoker alcohol intake: current alcohol intake frequency: 3 or more drinks per day substance use type: does not use what type of physical activity do you participate in: none HPI HPI Chief Complaint: Diabetes/thyroid cancer Details: ASHLEY RUBIO, is a 48 M who presents to the office today for follow up. A1C is 4.8% A1C was 8.3% in October, He has lost a total of 72 pounds. He is taking Mounjaro. At first it made him very ill, but he is tolerating it well now. He is still drinking for self-medication. But he has cut back. He and his are doing better. He has history of thyroid cancer. He had thyroidectomy and CARRASCO in 2008. With weight loss he became thyrotoxic on his medication, so dose was reduced. He will be due for recheck soon. He is taking 150 mcg daily. This isn't likely enough. He is on RICHARD ROS Const Constitutional: No fatigue or weight change ENT ENT: No dizziness/vertigo Cardio Cardiology: No chest pain at rest, chest pain with exertion, shortness of breath or palpitations Skin Skin: No wounds Endo Endocrine: No fatigue or weight change Exam Const General: cooperative, healthy appearing, comfortable, no acute distress, well developed and not cushingoid Nutritional Appearance: well nourished Orientation: alert, awake and oriented x3 HENMT Head: normal to inspection Ears: hearing grossly normal bilaterally Nose: external nose normal Mouth: oral mucosae normal Eyes General: appearance normal, both eyes and all related structures Alignment and Position: alignment normal Periorbital: periorbital findings normal Eyelids: eyelids normal Conjunctivae: conjunctivae normal Neck Neck: normal visual inspection Neck mass: No Thyroid: other (no palpable tissue) Lymphatic: no lymphadenopathy noted Chest Chest palpation inspection: normal inspection of the chest Resp Effort Inspection: normal respiratory effort, able to speak in complete sentences, symmetric chest movement, no audible wheezes and no cough Cardio Rate: regular rate Rhythm: regular rhythm Skin General: no rashes or lesions noted Neuro General: patient alert, patient awake and patient oriented x3 Cranial Nerves: CN's II-XI intact bilat (more content not included)... Normal [facility] Microalb:Creat Ratio,Random URon 10-08-2024 MALB:CREAT 28.7 mg/g CRE Normal [facility] Comment on above: Result Comment: AMENDED REPORT 10/08/24 1422 MALB:CREAT previously reported as: 287.0 mg/g CRE Performed By: #### L 502.0250, L506.0400, L500.4050, L3300.6820, L501.9520, L500.4100 #### [facility] [address] [place], [address] Office Visit Reporton 2024 Office Visit Report [facility] [address] [facility] [place] [address] OFFICE VISIT Date of Service: 09/23/24 MR#: [id number] Acct: [id number] Patient: ASHLEY RUBIO Rep #: [id number] : 1975 Provider: Katie Montelongo MD Age/Sex: 48/M Location: [facility] Status: Signed Intake Vital Signs 08/03/24 13:39 09/20/24 13:41 Height 6 ft 3 in 6 ft 3 in Weight: 354 lb 337 lb 2 oz BMI 44.2 42.1 BP 133/85 H 120/70 Blood Pressure Location Rt brachial Position Sitting Pulse 80 Pulse Source Monitor Pulse Oximetry (%) 98 Oxygen Delivery Method room air Intake Visit Reasons: BP Check Chief Complaint: 6m f/u diabetes Allergies cephalexin (From Keflex) Allergy (Intermediate, Verified 08/03/24 13:43) Swelling Assessment and Plan Assessment and Plan (1) Uncontrolled hypertension: Status: Acute Plan: BP controlled. No med changes. 09/24/24 1438 Date Katie Montelongo MD Yusraigner Signature: Date (if applicable) CC: Normal [facility] Anion gap in Serum or Plasma Ordered By: Katie Montelongo on 09-20-2024 Anion gap [Moles/Vol] 18 mmol/L High 5-15 [facility] BUN/creatinine ratioOrdered By: Katie Montelongo on 09-20-2024 Urea nitrogen/Creatinine [Mass ratio] 12.2 mg/mg 10-20 [facility] Bilirubin, totalOrdered By: Katie Montelongo on 09-20-2024 Bilirubin [Mass/Vol] 0.79 mg/dL 0.00-1.30 [facility] Carbon dioxide, total [Moles /volume] in Central venous bloodOrdered By: Katie Montelongo on 09-20-2024 CO2 [Moles/Vol] 23.1 mmol/L 21.0-32.0 [facility] Chloride assayOrdered By: James Montelongo on 09-20-2024 Chloride [Moles/Vol] 88 mmol/L Low 98-108 [facility] Metabolic Prof ilon 09-20-2024 Albumin [Mass/Vol] 4.3 g/dL Normal 3.5-5.0 [facility] Comment on above: Performed By: #### L 506.0400, L500.4050, L501.9520 ####[facility] [address] [place], [address] Albumin/Globulin [Mass ratio] 1.3 {ratio} Normal 0.9-2.4 [facility] Comment on above: Performed By: #### L 506.0400, L500.4050, L501.9520 ####[facility] [address] [place], [address] ALK PHOS 49 U/L Normal 40-129 [facility] Comment on above: Performed By: #### L 506.0400, L500.4050, L501.9520 ####[facility] [address] [place], [address] ALT [Catalytic activity/Vol] 20 U/L Normal <=46 [facility] Comment on above: Performed By: #### L 506.0400, L500.4050, L501.9520 ####[facility] [address] [place], [address] AST [Catalytic activity/Vol] 42 U/L High <=37 [facility] Comment on above: Performed By: #### L 506.0400, L500.4050, L501.9520 ####[facility] [address] [place], [address] Bilirubin [Mass/Vol] 0.79 mg/dL Normal 0.00-1.30 [facility] Comment on above: Performed By: #### L 506.0400, L500.4050, L501.9520 ####[facility] [address] [place], [address] BUN/CRE 12.2 RATIO Normal 10-20 [facility] Comment on above: Performed By: #### L 506.0400, L500.4050, L501.9520 ####[facility] [address] [place], [address] Calcium [Mass/Vol] 9.3 mg/dL Normal 7.6-11.0 [facility] Comment on above: Performed By: #### L 506.0400, L500.4050, L501.9520 ####[facility] [address] [place], [address] Chloride [Moles/Vol] 88 mmol/L Low 98-108 [facility] Comment on above: Performed By: #### L 506.0400, L500.4050, L501.9520 ####[facility] [address] [place], [address] CO2 [Moles/Vol] 23.1 mmol/L Normal 21.0-32.0 [facility] Comment on above: Performed By: #### L 506.0400, L500.4050, L501.9520 ####[facility] [address] [place], [address] Creatinine [Mass/Vol] 1.10 mg/dL Normal 0.70-1.20 [facility] Comment on above: Performed By: #### L 506.0400, L500.4050, L501.9520 ####[facility] [address] [place], [address] GAP 18 High 5-15 [facility] Comment on above: Performed By: #### L 506.0400, L500.4050, L501.9520 ####[facility] [address] [place], [address] GFR/1.73 sq M.predicted among non-blacks MDRD (S/P/Bld) [Vol rate/Area] 82 mL/min/{1.73_m2} Normal >60 [facility] Comment on above: Result Comment: mL/m in/1.73m2 CKD-EPI Creatinine Equation (2020) Performed By: #### L 506.0400, L500.4050, L501.9520 ####[facility] [address] [place], [address] Globulin (S) [Mass/Vol] 3.4 g/dL Normal 2.2-4.2 [facility] Comment on above: Performed By: #### L 506.0400, L500.4050, L501.9520 ####[facility] [address] [place], [address] Glucose [Mass/Vol] 78 mg/dL Normal 70-99 [facility] Comment on above: Performed By: #### L 506.0400, L500.4050, L501.9520 ####[facility] [address] [place], [address] Potassium [Moles/Vol] 3.7 mmol/L Normal 3.3-5.1 [facility] Comment on above: Performed By: #### L 506.0400, L500.4050, L501.9520 ####[facility] [address] [place], [address] Sodium [Moles/Vol] 129 mmol/L Low 133-145 [facility] Comment on above: Performed By: #### L 506.0400, L500.4050, L501.9520 ####[facility] [address] [place], [address] T PROT 7.7 g/dL Normal 5.9-8.4 [facility] Comment on above: Performed By: #### L 506.0400, L500.4050, L501.9520 ####[facility] [address] [place], [address] Urea nitrogen [Mass/Vol] 13 mg/dL Normal 4-19 [facility] Comment on above: Performed By: #### L 506.0400, L500.4050, L501.9520 ####[facility] [address] [place], [address] Glomerular filtration rate ( GFR) estimation/1.73 sq m using serum, plasma, or whole bOrdered By: Katie Montelongo on 09-20-2024 GFR/1.73 sq M.predicted among non-blacks MDRD (S/P/Bld) [Vol rate/Area] 82 mL/min/{1.73_m2} >60 [facility] Comment on above: mL/min/1.73m2 CKD-EP I Creatinine Equation (2020) Laboratory - Chemistry and C hemistry - challengeOrdered By: Katie Montelongo on 09-20-2024 AST [Catalytic activity/Vol] 42 U/L High <38 [facility] Potassium measurement (mass/ volume)Ordered By: Katie Montelongo on 09-20-2024 Potassium (Unsp spec) [Mass/Vol] 3.7 mmol/L 3.3-5.1 [facility] Serum creatinine measurement (mass/volume)Ordered By: Katie Montelongo on 09-20-2024 Creatinine [Mass/Vol] 1.10 mg/dL 0.70-1.20 [facility] Serum globulin measurementOr dered By: Katie Montelongo on 09-20-2024 Globulin (S) [Mass/Vol] 3.4 g/dL 2.2-4.2 [facility] Serum glucose measurement (m ass/volume)Ordered By: Katie Montelongo on 09-20-2024 Glucose [Mass/Vol] 78 mg/dL 70-99 [facility] Serum or plasma alanine gates otransferase (ALT) measurementOrdered By: Katie Montelongo on 09-20-2024 ALT [Catalytic activity/Vol] 20 U/L <47 [facility] Serum or plasma albumin kathleen urement (mass/volume)Ordered By: Katie Montelongo on 09-20-2024 Albumin [Mass/Vol] 4.3 g/dL 3.5-5.0 [facility] Serum or plasma albumin/glob ulin mass ratioOrdered By: Katie Montelongo on 09-20-2024 Albumin/Globulin [Mass ratio] 1.3 {ratio} 0.9-2.4 [facility] Serum or plasma alkaline negro sphatase measurementOrdered By: Katie Montelongo on 09-20-2024 ALP [Catalytic activity/Vol] 49 U/L 40-129 [facility] Serum or plasma calcium kathleen urement (mass/volume)Ordered By: Katie Montelongo on 09-20-2024 Calcium [Mass/Vol] 9.3 mg/dL 7.6-11.0 [facility] Serum or plasma urea nitroge n measurement (mass/volume)Ordered By: Katie Montelongo on 09-20-2024 Urea nitrogen [Mass/Vol] 13 mg/dL 4-19 [facility] Sodium levelOrdered By: Katie Montelongo on 09-20-2024 Sodium [Moles/Vol] 129 mmol/L Low 133-145 [facility] T4 Free Directon 09-20-2024 T4 FREE DIRECT 1.40 ng/dL Normal 0.76-1.46 [facility] Comment on above: Performed By: #### L 506.0400, L500.4050, L501.9520 ####[facility] [address] [place], [address] T4 freeOrdered By: Katie Montelongo on 09-20-2024 Free T4 [Mass/Vol] 1.40 ng/dL 0.76-1.46 [facility] TSH DL <= 0.005 mIU/L QnOrde red By: Katie Montelongo on 09-20-2024 TSH Qn 4.430 uIU/mL High 0.300-4.20 0 [facility] Thyroid Stim Hormone (TSH)on 09-20-2024 TSH 4.430 uIU/mL High 0.300-4.20 0 [facility] Comment on above: Performed By: #### L 506.0400, L500.4050, L501.9520 ####[facility] [address] [place], [place], [id number] Total proteinOrdered By: Kai Montelongo on 09-20-2024 Protein [Mass/Vol] 7.7 g/dL 5.9-8.4 [facility] Thyroglobulin w/Anti-TG ABon 08-13-2024 Anti-TG AB < 1.0 Normal 0.0-0.9 [facility] Comment on above: Order Comment: Reaso n for Laboratory Test x Result Comment: Thyr oglobulin Antibody measured by [employer] It should be noted that the presence of thyroglobulin antibodies may not be pathogenic nor diagnostic, especially at very low levels. The assay parole board member has found that four percent of individuals without evidence of thyroid disease or autoimmunity will have positive TgAb levels up to 4 IU/mL. Performed By: #### L 502.0250, L506.0400, L500.4050, L3300.6820, L501.9520, L500.4100 #### [facility] [address] [place], [address] THYROGLOB QUANT < 0.1 Low 1.4-29.2 [facility] Comment on above: Order Comment: Reaso n for Laboratory Test x Result Comment: Acco rding to the National Academy of Clinical [employer]ochemistry, the reference interval for Thyroglobulin (TG) should be related to euthyroid patients and not for patients who underwent thyroidectomy. TG reference intervals for these patients depend on the residual mass of the thyroid tissue left after surgery. Establishing a post-operative baseline is recommended. The assay limit of quantitation is 0.1 ng/mL Thyroglobulin measured by [facility] [place] [employer] [facility] Performed at: [facility] [id number] Artist Model: Jose Riley PhD, Phone: [phone] Performed By: #### L 502.0250, L506.0400, L500.4050, L3300.6820, L501.9520, L500.4100 #### [facility] [address] [place], [address] Albumin DL <= 20 mg/L (U) [M ass/Vol]Ordered By: Katie Montelongo on 08-12-2024 Urine Random Microalbumin 25.2 mg/L NO RANGE EST. [facility] Anion gap in Serum or Plasma Ordered By: Katie Montelongo on 08-12-2024 Anion gap [Moles/Vol] 16 mmol/L High 5-15 [facility] BUN/creatinine ratioOrdered By: Katie Montelongo on 08-12-2024 Urea nitrogen/Creatinine [Mass ratio] 11.1 mg/mg 10-20 [facility] Bilirubin, totalOrdered By: Katie Montelongo on 08-12-2024 Bilirubin [Mass/Vol] 0.80 mg/dL 0.00-1.30 [facility] Calculated very low density lipoprotein (VLDL) cholesterol measurementOrdered By: Katie Montelongo on 08-12-2024 Calculated very low density lipoprotein (VLDL) cholesterol measurement 32 mg/dL - [facility] VLDL Cholesterol 32 mg/dL -40 [facility] Carbon dioxide, total [Moles /volume] in Central venous bloodOrdered By: Katie Montelongo on 08-12-2024 CO2 [Moles/Vol] 22.1 mmol/L 21.0-32.0 [facility] Chloride assayOrdered By: James Montelongo on 08-12-2024 Chloride [Moles/Vol] 95 mmol/L Low 98-108 [facility] Metabolic Prof ilon 08-12-2024 Albumin [Mass/Vol] 4.3 g/dL Normal 3.5-5.0 [facility] Comment on above: Performed By: #### L 502.0250, L506.0400, L500.4050, L3300.6820, L501.9520, L500.4100 #### [facility] [address] [place], [address] Albumin/Globulin [Mass ratio] 1.2 {ratio} Normal 0.9-2.4 [facility] Comment on above: Performed By: #### L 502.0250, L506.0400, L500.4050, L3300.6820, L501.9520, L500.4100 #### [facility] [address] [place], [address] ALK PHOS 59 U/L Normal 40-129 [facility] Comment on above: Performed By: #### L 502.0250, L506.0400, L500.4050, L3300.6820, L501.9520, L500.4100 #### [facility] [address] [place], [address] ALT [Catalytic activity/Vol] 180 U/L High <=46 [facility] Comment on above: Performed By: #### L 502.0250, L506.0400, L500.4050, L3300.6820, L501.9520, L500.4100 #### [facility] [address] [place], [address] AST [Catalytic activity/Vol] 65 U/L High <=37 [facility] Comment on above: Performed By: #### L 502.0250, L506.0400, L500.4050, L3300.6820, L501.9520, L500.4100 #### [facility] [address] [place], [address] Bilirubin [Mass/Vol] 0.80 mg/dL Normal 0.00-1.30 [facility] Comment on above: Performed By: #### L 502.0250, L506.0400, L500.4050, L3300.6820, L501.9520, L500.4100 #### [facility] [address] [place], [address] BUN/CRE 11.1 RATIO Normal 10-20 [facility] Comment on above: Performed By: #### L 502.0250, L506.0400, L500.4050, L3300.6820, L501.9520, L500.4100 #### [facility] [address] [place], [address] Calcium [Mass/Vol] 9.5 mg/dL Normal 7.6-11.0 [facility] Comment on above: Performed By: #### L 502.0250, L506.0400, L500.4050, L3300.6820, L501.9520, L500.4100 #### [facility] [address] [place], [address] Chloride [Moles/Vol] 95 mmol/L Low 98-108 [facility] Comment on above: Performed By: #### L 502.0250, L506.0400, L500.4050, L3300.6820, L501.9520, L500.4100 #### [facility] [address] [place], [address] CO2 [Moles/Vol] 22.1 mmol/L Normal 21.0-32.0 [facility] Comment on above: Performed By: #### L 502.0250, L506.0400, L500.4050, L3300.6820, L501.9520, L500.4100 #### [facility] [address] [place], [address] Creatinine [Mass/Vol] 0.94 mg/dL Normal 0.70-1.20 [facility] Comment on above: Performed By: #### L 502.0250, L506.0400, L500.4050, L3300.6820, L501.9520, L500.4100 #### [facility] [address] [place], [address] GAP 16 High 5-15 [facility] Comment on above: Performed By: #### L 502.0250, L506.0400, L500.4050, L3300.6820, L501.9520, L500.4100 #### [facility] [address] [place], [address] GFR/1.73 sq M.predicted among non-blacks MDRD (S/P/Bld) [Vol rate/Area] 99 mL/min/{1.73_m2} Normal >60 [facility] Comment on above: Result Comment: mL/m in/1.73m2 CKD-EPI Creatinine Equation (2020) Performed By: #### L 502.0250, L506.0400, L500.4050, L3300.6820, L501.9520, L500.4100 #### [facility] [address] [place], [address] Globulin (S) [Mass/Vol] 3.5 g/dL Normal 2.2-4.2 [facility] Comment on above: Performed By: #### L 502.0250, L506.0400, L500.4050, L3300.6820, L501.9520, L500.4100 #### [facility] [address] [place], [address] Glucose [Mass/Vol] 97 mg/dL Normal 70-99 [facility] Comment on above: Performed By: #### L 502.0250, L506.0400, L500.4050, L3300.6820, L501.9520, L500.4100 #### [facility] [address] [place], [address] Potassium [Moles/Vol] 4.0 mmol/L Normal 3.3-5.1 [facility] Comment on above: Performed By: #### L 502.0250, L506.0400, L500.4050, L3300.6820, L501.9520, L500.4100 #### [facility] [address] [place], [address] Sodium [Moles/Vol] 133 mmol/L Normal 133-145 [facility] Comment on above: Performed By: #### L 502.0250, L506.0400, L500.4050, L3300.6820, L501.9520, L500.4100 #### [facility] [address] [place], [address] T PROT 7.8 g/dL Normal 5.9-8.4 [facility] Comment on above: Performed By: #### L 502.0250, L506.0400, L500.4050, L3300.6820, L501.9520, L500.4100 #### [facility] [address] [place], [address] Urea nitrogen [Mass/Vol] 10 mg/dL Normal 4-19 [facility] Comment on above: Performed By: #### L 502.0250, L506.0400, L500.4050, L3300.6820, L501.9520, L500.4100 #### [facility] [address] [place], [address] Creatinine Unsp time (U) [Ma ss/Vol]Ordered By: Katie Montelongo on 08-12-2024 Creatinine (U) [Mass/Vol] 87.80 mg/dL 39.00-259. 00 [facility] [facility] GFR/1.73 sq M.predicted estela g non-blacks MDRD (S/P/Bld) [Vol rate/Area]Ordered By: Katie Montelongo on 08-12-2024 Estimated GFR (MDRD) Non-Af Amer 99 >60 [facility] Comment on above: mL/min/1.73m2 CKD-EP I Creatinine Equation (2020) Glomerular filtration rate ( GFR) estimation/1.73 sq m using serum, plasma, or whole bOrdered By: Katie Montelongo on 08-12-2024 GFR/1.73 sq M.predicted among non-blacks MDRD (S/P/Bld) [Vol rate/Area] 99 mL/min/{1.73_m2} >60 [facility] Comment on above: mL/min/1.73m2 CKD-EP I Creatinine Equation (2020) LDL calc ser/plasOrdered By: Katie Montelongo on 08-12-2024 Cholesterol in LDL [Mass/Vol] 80 mg/dL [facility] Comment on above: Rmrdrxjzzk=400-298 m g/dL & Higher Stjq=747 mg/dL or greater LDL Cholesterol, Calculated 80 mg/dL [facility] Comment on above: Fqkeohpazw=102-043 m g/dL & Higher Hayb=541 mg/dL or greater Laboratory - Chemistry and C hemistry - challengeOrdered By: Katie Montelongo on 08-12-2024 AST [Catalytic activity/Vol] 65 U/L High <38 [facility] Lipid Profileon 08-12-2024 CHOL:HDL 3.01 Normal [facility] Comment on above: Performed By: #### L 502.0250, L506.0400, L500.4050, L3300.6820, L501.9520, L500.4100 #### [facility] [address] [place], [address] Cholesterol [Mass/Vol] 168 mg/dL Normal <=200 [facility] Comment on above: Result Comment: Chol esterol level, Desirable <200 mg/dL Borderline high cholesterol 200-239 mg/dL High cholesterol >=240 mg/dL Recommendations of the NCEP Adult Treatment Panel for the following risk-cutoff thresholds for the [place] population. Performed By: #### L 502.0250, L506.0400, L500.4050, L3300.6820, L501.9520, L500.4100 #### [facility] [address] [place], [address] Cholesterol in HDL [Mass/Vol] 56 mg/dL Normal [facility] Comment on above: Result Comment: Maria Dolores onal Cholesterol Education Program (NCEP) guidelines: <40 mg/dL: Low HDL-cholesterol (major risk factor for CHD) >= 60 mg/dL: High HDL-cholesterol (negative risk factor for CHD) HDL-cholesterol is affected by a number of factors, e.g. smoking, exercise, hormones, sex and age. Performed By: #### L 502.0250, L506.0400, L500.4050, L3300.6820, L501.9520, L500.4100 #### [facility] [address] [place], [address] Cholesterol in LDL [Mass/Vol] 80 mg/dL Normal [facility] Comment on above: Result Comment: Bord zpeufh=005-677 mg/dL Higher Cgxc=165 mg/dL or greater Performed By: #### L 502.0250, L506.0400, L500.4050, L3300.6820, L501.9520, L500.4100 #### [facility] [address] [place], [address] Cholesterol in VLDL [Mass/Vol] 32 mg/dL Normal 5-40 [facility] Comment on above: Performed By: #### L 502.0250, L506.0400, L500.4050, L3300.6820, L501.9520, L500.4100 #### [facility] [address] [place], [address] Triglyceride [Mass/Vol] 160 mg/dL Normal [facility] Comment on above: Result Comment: The drugs N-Acetylcysteine and Metamizole may falsely depress this assay. Normal range: <150 mg/dL Borderline High: 150-199 mg/dL High: 200-499 mg/dL Very High: >500 mg/dL Performed By: #### L 502.0250, L506.0400, L500.4050, L3300.6820, L501.9520, L500.4100 #### [facility] [address] [place], [place], [id number] Microalbumin/creat ratio urO rdered By: Katie Montelongo on 08-12-2024 Urine Microalbumin/Creatin ine Ratio 287.0 mg/g CRE [facility] Potassium (Unsp spec) [Mass/ Vol]Ordered By: Katie Montelongo on 08-12-2024 Potassium [Moles/Vol] 4.0 mmol/L 3.3-5.1 [facility] Potassium measurement (mass/ volume)Ordered By: Katie Montelongo on 08-12-2024 Potassium (Unsp spec) [Mass/Vol] 4.0 mmol/L 3.3-5.1 [facility] Random urine creatinine kathleen urement (mass/volume)Ordered By: Katie Montelongo on 08-12-2024 Creatinine Unsp time (U) [Mass/Vol] 87.80 mg/dL 39.00-259. 00 [facility] Screening total cholesterol/ high density lipoprotein (HDL) cholesterol ratioOrdered By: Katie Montelongo on 08-12-2024 Cholesterol.total/Ch olesterol in HDL [Mass ratio] 3.01 {ratio} [facility] Serum creatinine measurement (mass/volume)Ordered By: Katie Montelongo on 08-12-2024 Creatinine [Mass/Vol] 0.94 mg/dL 0.70-1.20 [facility] Serum globulin measurementOr dered By: Katie Montelongo on 08-12-2024 Globulin (S) [Mass/Vol] 3.5 g/dL 2.2-4.2 [facility] Serum glucose measurement (m ass/volume)Ordered By: Katie Montelongo on 08-12-2024 Glucose [Mass/Vol] 97 mg/dL 70-99 [facility] Serum or plasma alanine gates otransferase (ALT) measurementOrdered By: Katie Montelongo on 08-12-2024 ALT [Catalytic activity/Vol] 180 U/L High <47 [facility] Serum or plasma albumin kathleen urement (mass/volume)Ordered By: Katie Montelongo on 08-12-2024 Albumin [Mass/Vol] 4.3 g/dL 3.5-5.0 [facility] Serum or plasma albumin/glob ulin mass ratioOrdered By: Katie Montelongo 08-12-2024 Albumin/Globulin [Mass ratio] 1.2 {ratio} 0.9-2.4 [facility] Serum or plasma alkaline negro sphatase measurementOrdered By: Katie Montelongo 08-12-2024 ALP [Catalytic activity/Vol] 59 U/L 40-129 [facility] Serum or plasma calcium kathleen urement (mass/volume)Ordered By: Katie Montelongo 08-12-2024 Calcium [Mass/Vol] 9.5 mg/dL 7.6-11.0 [facility] Serum or plasma cholesterol in HDL measurement (mass/volume)Ordered By: Katie Montelongo 08-12-2024 Cholesterol in HDL [Mass/Vol] 56 mg/dL >40 [facility] Comment on above: National Cholesterol Education Program (NCEP) guidelines:<40 mg/dL: Low HDL-cholesterol (major risk factor for CHD)>= 60 mg/dL: High HDL-cholesterol (negative risk factor for CHD)HDL-cholesterol is affected by a number of factors, e.g. smoking, exercise, hormones, sex and age. Serum or plasma cholesterol measurement (mass/volume)Ordered By: Katie Montelongo 08-12-2024 Cholesterol [Mass/Vol] 168 mg/dL <201 [facility] Comment on above: Cholesterol level, D esirable <200 mg/dLBorderline high cholesterol 200-239 mg/dLHigh cholesterol >=240 mg/dLRecommendations of the NCEP Adult Treatment Panel for the following risk-cutoff thresholds for the [place] population. Serum or plasma urea nitroge n measurement (mass/volume)Ordered By: Katie Montelongo 08-12-2024 Urea nitrogen [Mass/Vol] 10 mg/dL 4-19 [facility] Sodium levelOrdered By: Katie Montelongo on 04-24-2025 Sodium [Moles/Vol] 133 mmol/L 133-145 [facility] T4 Free Directon 08-12-2024 T4 FREE DIRECT 2.40 ng/dL High 0.76-1.46 [facility] Comment on above: Performed By: #### L 502.0250, L506.0400, L500.4050, L3300.6820, L501.9520, L500.4100 #### [facility] [place], [address] T4 freeOrdered By: Katie Montelongo on 08-12-2024 Free T4 [Mass/Vol] 2.40 ng/dL High 0.76-1.46 [facility] TSH DL <= 0.005 mIU/L QnOrde red By: Katie Montelongo on 08-12-2024 Thyroid Stimulating Hormone (TSH) 0.013 uIU/mL Low 0.300-4.20 0 [facility] TSH Qn 0.013 uIU/mL Low 0.300-4.20 0 [facility] Thyroglobulin Ab serumOrdere d By: Katie Montelongo on 08-12-2024 Thyroglobulin Antibody < 1.0 IU/mL 0.0-0.9 [facility] Comment on above: Thyroglobulin Antibo dy measured by TrovitMethodologyIt should be noted that the presence of thyroglobulinantibodies may not be pathogenic nor diagnostic, especiallyat very low levels. The assay parole board member has found thatfour percent of individuals without evidence of thyroiddisease or autoimmunity will have positive TgAb levels upto 4 IU/mL. Thyroglobulin serOrdered By: Katie Montelongo on 08-12-2024 Thyroglobulin Level < 0.1 ng/mL Low 1.4-29.2 [facility] Comment on above: According to the [employer] [facility] Academy of Clinical Biochemistry,the reference interval for Thyroglobulin (TG) should berelated to euthyroid patients and not for patients whounderwent thyroidectomy. TG reference intervals for thesepatients depend on the residual mass of the thyroid tissueleft after surgery. Establishing a post-operative baselineis recommended. The assay limit of quantitation is 0.1ng/mLThyroglobulin measured by Trovit ImmunometricAssayPerformed at: [id number] [place], [place] [id number] Director: Jose Riley PhD, Phone: [phone] Thyroid Stim Hormone (TSH)on 08-12-2024 TSH 0.013 uIU/mL Low 0.300-4.20 0 [facility] Comment on above: Performed By: #### L 502.0250, L506.0400, L500.4050, L3300.6820, L501.9520, L500.4100 #### [facility] [address] [place], [place], [id number] Total proteinOrdered By: Kai Montelongo on 08-12-2024 Protein [Mass/Vol] 7.8 g/dL 5.9-8.4 [facility] Triglycerides measurementOrd ered By: Katie Montelongo on 08-12-2024 Triglyceride [Mass/Vol] 160 mg/dL <199 [facility] Comment on above: The drugs N-Acetylcy steine and Metamizole may falsely depress this assay. Normal range: <150 mg/dLBorderline High: 150-199 mg/dLHigh: 200-499 mg/dLVery High: >500 mg/dL Urine albumin measurement [facility] detection limit of 20 mg/L or less (mass/volume)Ordered By: Katie Mnotelongo on 08-12-2024 Albumin DL <= 20 mg/L (U) [Mass/Vol] 25.2 mg/L NO RANGE EST. [facility] - Hematology and Cell countsOrdered By: Katie Montelongo on 08-03-2024 HbA1c (Bld) [Mass fraction] 5.1 % 4.2-6.3 [facility] .Auto Diffon 10-28-2023 Basophil, Absolute 0.0 10 3/mcL Normal 0.0-0.2 [facility] ([place]) Comment on above: Performed By: #### A DIFF, GFR, TROPHS, CBC, MDW, BMP, ANEU #### [address] [address] Basophils/100 WBC (Bld) 0.3 % Normal 0.0-2.5 [facility] ([place]) Comment on above: Performed By: #### A DIFF, GFR, TROPHS, CBC, MDW, BMP, ANEU #### [address] [address] Eosinophil, Absolute 0.2 10 3/mcL Normal 0.0-0.4 [facility] ([place]) Comment on above: Performed By: #### A DIFF, GFR, TROPHS, CBC, MDW, BMP, ANEU #### [address] [address] Eosinophils/100 WBC (Bld) 2.6 % Normal 0.0-7.0 [facility] ([place]) Comment on above: Performed By: #### A DIFF, GFR, TROPHS, CBC, MDW, BMP, ANEU #### [address] [address] Lymphocyte, Absolute 1.5 10 3/mcL Normal 0.8-3.9 [facility] ([place]) Comment on above: Performed By: #### A DIFF, GFR, TROPHS, CBC, MDW, BMP, ANEU #### [address] [address] Lymphocytes/100 WBC (Bld) 23.4 % Normal 10.0-50.0 [facility] ([place]) Comment on above: Performed By: #### A DIFF, GFR, TROPHS, CBC, MDW, BMP, ANEU #### [address] [address] Monocyte, Absolute 0.6 10 3/mcL Normal 0.2-1.0 [facility] ([place]) Comment on above: Performed By: #### A DIFF, GFR, TROPHS, CBC, MDW, BMP, ANEU #### [address] [address] Monocytes/100 WBC (Bld) 8.9 % Normal 1.7-13.0 [facility] ([place]) Comment on above: Performed By: #### A DIFF, GFR, TROPHS, CBC, MDW, BMP, ANEU #### [address] [address] Neutrophils/100 WBC (Bld) 64.8 % Normal 37.0-80.0 [facility] ([place]) Comment on above: Performed By: #### A DIFF, GFR, TROPHS, CBC, MDW, BMP, ANEU #### [address] [address] .GFRon 10-28-2023 GFR 65 ml/min/1.73sqm Normal [facility] ([place]) Comment on above: Result Comment: GFR Population mean for , Non- Americans Ages 20-29 = 116 mL/min/1.73 sq.m. Ages 30-39 = 107 mL/min/1.73 sq.m. Ages 40-49 = 99 mL/min/1.73 sq.m. Ages 50-59 = 93 mL/min/1.73 sq.m. Ages 60-69 = 85 mL/min/1.73 sq.m. Ages 70+ = 75 mL/min/1.73 sq.m. Chronic Kidney Disease: Less than 60 mL/min/1.73 square meters End Stage Renal Disease: Less than 15 mL/min/1.73 square meters Performed By: #### A DIFF, GFR, TROPHS, CBC, MDW, BMP, ANEU #### [address] [address] GFR Non- 54 ml/min/1.73sqm Normal [facility] ([place]) Comment on above: Result Comment: GFR Population mean for , Non- Americans Ages 20-29 = 116 mL/min/1.73 sq.m. Ages 30-39 = 107 mL/min/1.73 sq.m. Ages 40-49 = 99 mL/min/1.73 sq.m. Ages 50-59 = 93 mL/min/1.73 sq.m. Ages 60-69 = 85 mL/min/1.73 sq.m. Ages 70+ = 75 mL/min/1.73 sq.m. Chronic Kidney Disease: Less than 60 mL/min/1.73 square meters End Stage Renal Disease: Less than 15 mL/min/1.73 square meters Performed By: #### A DIFF, GFR, TROPHS, CBC, MDW, BMP, ANEU #### [address] [address] .MDWon 10-28-2023 Monocyte Distribution Width 19.39 Normal 0.00-20.00 [facility] ([place]) Comment on above: Result Comment: For ED adult patients suspected of sepsis, MDW<=20.0 does not rule out sepsis or risk of sepsis Performed By: #### A DIFF, GFR, TROPHS, CBC, MDW, BMP, ANEU #### [address] [address] .NEUABSon 10-28-2023 Neutrophil, Absolute 4.2 10 3/mcL Normal 2.9-6.2 [facility] ([place]) Comment on above: Performed By: #### A DIFF, GFR, TROPHS, CBC, MDW, BMP, ANEU #### [address] [address] BMPon 10-28-2023 BUN/Creatinine Ratio 9 ratio Normal 7-27 [facility] ([place]) Comment on above: Performed By: #### A DIFF, GFR, TROPHS, CBC, MDW, BMP, ANEU #### [address] [address] Calcium [Mass/Vol] 9.5 mg/dL Normal 8.4-10.2 [facility] ([place]) Comment on above: Performed By: #### A DIFF, GFR, TROPHS, CBC, MDW, BMP, ANEU #### [address] [address] Chloride [Moles/Vol] 97 mmol/L Low 98-107 [facility] ([place]) Comment on above: Performed By: #### A DIFF, GFR, TROPHS, CBC, MDW, BMP, ANEU #### [address] [address] CO2 [Moles/Vol] 30 mmol/L High 22-29 [facility] ([place]) Comment on above: Performed By: #### A DIFF, GFR, TROPHS, CBC, MDW, BMP, ANEU #### [address] [address] Creatinine [Mass/Vol] 1.40 mg/dL High 0.70-1.30 [facility] ([place]) Comment on above: Performed By: #### A DIFF, GFR, TROPHS, CBC, MDW, BMP, ANEU #### [address] [address] Electrolyte Balance 8.0 mEq/L Normal 4.0-15.0 [facility] ([place]) Comment on above: Performed By: #### A DIFF, GFR, TROPHS, CBC, MDW, BMP, ANEU #### [address] [address] Glucose [Mass/Vol] 144 mg/dL High 70-105 [facility] ([place]) Comment on above: Performed By: #### A DIFF, GFR, TROPHS, CBC, MDW, BMP, ANEU #### [address] [address] Potassium [Moles/Vol] 4.2 mmol/L Normal 3.5-5.1 [facility] ([place]) Comment on above: Performed By: #### A DIFF, GFR, TROPHS, CBC, MDW, BMP, ANEU #### [address] [address] Sodium [Moles/Vol] 135 mmol/L Low 136-145 [facility] ([place]) Comment on above: Performed By: #### A DIFF, GFR, TROPHS, CBC, MDW, BMP, ANEU #### [address] [address] Urea nitrogen [Mass/Vol] 12 mg/dL Normal 7-18 [facility] ([place]) Comment on above: Performed By: #### A DIFF, GFR, TROPHS, CBC, MDW, BMP, ANEU #### [address] [address] CBCon 10-28-2023 Erythrocyte distribution width (RBC) [Ratio] 14.5 % Normal 11.5-14.5 [facility] ([place]) Comment on above: Performed By: #### A DIFF, GFR, TROPHS, CBC, MDW, BMP, ANEU #### [address] [address] Hematocrit (Bld) [Volume fraction] 44.2 % Normal 42.0-52.0 [facility] ([place]) Comment on above: Performed By: #### A DIFF, GFR, TROPHS, CBC, MDW, BMP, ANEU #### [address] [address] Hgb 15.6 G/dL Normal 14.0-18.0 [facility] ([place]) Comment on above: Performed By: #### A DIFF, GFR, TROPHS, CBC, MDW, BMP, ANEU #### [address] [address] MCH (RBC) [Entitic mass] 32.8 pg High 27.0-31.2 [facility] ([place]) Comment on above: Performed By: #### A DIFF, GFR, TROPHS, CBC, MDW, BMP, ANEU #### [address] [address] MCHC 35.3 G/dL Normal 31.8-35.4 [facility] ([place] Comment on above: Performed By: #### A DIFF, GFR, TROPHS, CBC, MDW, BMP, ANEU #### [address] [address] MCV (RBC) [Entitic vol] 92.9 fL Normal 80.0-94.0 [facility] ([place] Comment on above: Performed By: #### A DIFF, GFR, TROPHS, CBC, MDW, BMP, ANEU #### [address] [address] Platelet 186 10 3/mcL Normal 130-400 [facility] ([place]) Comment on above: Performed By: #### A DIFF, GFR, TROPHS, CBC, MDW, BMP, ANEU #### [address] [address] Platelet mean volume (Bld) [Entitic vol] 8.0 fL Normal 7.4-10.4 [facility] ([place] Comment on above: Performed By: #### A DIFF, GFR, TROPHS, CBC, MDW, BMP, ANEU #### [address] [address] RBC 4.76 10 6/mcL Normal 4.04-6.13 [facility] ([place] Comment on above: Performed By: #### A DIFF, GFR, TROPHS, CBC, MDW, BMP, ANEU #### [address] [address] WBC 6.5 10 3/mcL Normal 4.6-10.8 [facility] ([place] Comment on above: Performed By: #### A DIFF, GFR, TROPHS, CBC, MDW, BMP, ANEU #### [address] [address] LABORATORYOrdered By: SYSTEM SYSTEM on 10-28-2023 Basophil, Absolute 0.0 103/mcL Normal 0.0 - 0.2 10^3/mcL AO Workflow SS Basophils/100 WBC (Bld) 0.3 % Normal 0.0 - 2.5 % AO Workflow SS Calcium [Mass/Vol] 9.5 mg/dL Normal 8.4 - 10. 2 mg/dL AO ADM SS Chloride [Moles/Vol] 97 mmol/L Low 98 - 10 7 mmol/L AO ADM SS CO2 [Moles/Vol] 30 mmol/L High 22 - 29 mmol/L AO ADM SS Creatinine [Mass/Vol] 1.40 mg/dL High 0.70 - 1.30 mg/dL AO ADM SS Electrolyte Balance 8.0 mEq/L Normal 4.0 - 15 .0 mEq/L AO ADM SS Eosinophil, Absolute 0.2 103/mcL Normal 0.0 - 0 .4 10^3/mcL AO Workflow SS Eosinophils/100 WBC (Bld) 2.6 % Normal 0.0 - 7.0 % AO Workflow SS Erythrocyte distribution width (RBC) [Ratio] 14.5 % Normal 11.5 - 14.5 % AO Workflow SS GFR/1.73 sq M.predicted among blacks MDRD (S/P/Bld) [Vol rate/Area] 65 ml/min/1.73sqm Invalid Interpretation Code AO Chemistry S Comment on above: Interpretive Data: GFR Population mean for , Non- Americans Ages 20-29 = 116 mL/min/1.73 sq.m. Ages 30-39 = 107 mL/min/1.73 sq.m. Ages 40-49 = 99 mL/min/1.73 sq.m. Ages 50-59 = 93 mL/min/1.73 sq.m. Ages 60-69 = 85 mL/min/1.73 sq.m. Ages 70+ = 75 mL/min/1.73 sq.m. Chronic Kidney Disease: Less than 60 mL/min/1.73 square meters End Stage Renal Disease: Less than 15 mL/min/1.73 square meters GFR/1.73 sq M.predicted among non-blacks MDRD (S/P/Bld) [Vol rate/Area] 54 ml/min/1.73sqm Invalid Interpretation Code AO Chemistry S Comment on above: Interpretive Data: GFR Population mean for , Non- Americans Ages 20-29 = 116 mL/min/1.73 sq.m. Ages 30-39 = 107 mL/min/1.73 sq.m. Ages 40-49 = 99 mL/min/1.73 sq.m. Ages 50-59 = 93 mL/min/1.73 sq.m. Ages 60-69 = 85 mL/min/1.73 sq.m. Ages 70+ = 75 mL/min/1.73 sq.m. Chronic Kidney Disease: Less than 60 mL/min/1.73 square meters End Stage Renal Disease: Less than 15 mL/min/1.73 square meters Glucose [Mass/Vol] 144 mg/dL High 70 - 105 mg/dL AO ADM SS Hematocrit (Bld) [Volume fraction] 44.2 % Normal 42.0 - 52.0 % AO Workflow SS Hemoglobin (Bld) [Mass/Vol] 15.6 G/dL Normal 14.0 - 18.0 G/dL AO Workflow SS Lymphocyte, Absolute 1.5 103/mcL Normal 0.8 - 3 .9 10^3/mcL AO Workflow SS Lymphocytes/100 WBC (Bld) 23.4 % Normal 10.0 - 50.0 % AO Workflow SS MCH (RBC) [Entitic mass] 32.8 pg High 27.0 - 31.2 pg AO Workflow SS MCHC 35.3 G/dL Normal 31.8 - 35.4 G/dL AO Workflow SS MCV (RBC) [Entitic vol] 92.9 fL Normal 80.0 - 94.0 fL AO Workflow SS Monocyte distribution width Auto (Bld) [Entitic vol] 19.39 1 Normal 0.00 - 20.00 AO Workflow SS Comment on above: Result Comment: For ED adult patients suspected of sepsis, MDW<=20.0 does not rule out sepsis or risk of sepsis Monocyte, Absolute 0.6 103/mcL Normal 0.2 - 1.0 10^3/mcL AO Workflow SS Monocytes/100 WBC (Bld) 8.9 % Normal 1.7 - 13.0 % AO Workflow SS Neutrophil, Absolute 4.2 103/mcL Normal 2.9 - 6 .2 10^3/mcL AO Workflow SS Neutrophils/100 WBC (Bld) 64.8 % Normal 37.0 - 80.0 % AO Workflow SS Platelet mean volume (Bld) [Entitic vol] 8.0 fL Normal 7.4 - 10.4 fL AO Workflow SS Platelets (Bld) [#/Vol] 186 103/mcL Normal 130 - 400 10^3/mcL AO Workflow SS Potassium [Moles/Vol] 4.2 mmol/L Normal 3.5 - 5.1 mmol/L AO ADM SS RBC (Bld) [#/Vol] 4.76 106/mcL Normal 4.04 - 6.13 10^6/mcL AO Workflow SS Sodium [Moles/Vol] 135 mmol/L Low 136 - 145 mmol/L AO ADM SS Troponin I.cardiac DL <= 0.01 ng/mL [Mass/Vol] 6 ng/L Normal 0 - 76 ng/L AO ADM SS Comment on above: Interpretive Data: H igh Sensitive Troponin I Reference Ranges: Female: 0-51 ng/L Male: 0-76 ng/L Testing performed on BDA using a homogeneous sandwich chemiluminescent immunoassay based on MILI technology. Urea nitrogen [Mass/Vol] 12 mg/dL Normal 7 - 18 mg/dL AO ADM SS Urea nitrogen/Creatinine [Mass ratio] 9 ratio Normal 7 - 27 ratio AO ADM SS WBC (Bld) [#/Vol] 6.5 103/mcL Normal 4.6 - 10.8 10^3/mcL AO Workflow SS TROPHSon 10-28-2023 High Sensitivity Troponin I 6 ng/L Normal 0-76 [facility] ([place]) Comment on above: Result Comment: High Sensitive Troponin I Reference Ranges: Female: 0-51 ng/L Male: 0-76 ng/L Testing performed on [employer] EXL using a homogeneous sandwich chemiluminescent immunoassay based on MILI technology. Performed By: #### A DIFF, GFR, TROPHS, CBC, MDW, BMP, ANEU #### [id number] [place], [place] [address] XR CHEST 1 VIEWon 10-28-2023 XR CHEST 1 VIEW ORIGINAL EXAMINATION: ONE XRAY VIEW OF THE CHEST 10/28/2023 7:51 am COMPARISON: None. HISTORY: ORDERING SYSTEM PROVIDED HISTORY: Reason for Exam: chest pain FINDINGS: Cardiomediastinal contour is normal. No focal consolidation or pulmonary edema. No pneumothorax or pleural effusion. No acute osseous abnormality. IMPRESSION: No acute radiographic abnormality. Preliminary Report was Dictated by a Resident Interpreted by: Mamadou Moreland MD Preliminary Report By: Duke Toure Electronically signed By Mamadou Moreland MD Dictated Date: 10/28/2023 7:55:42 AM Prelim Date: 10/28/2023 7:56:26 AM Sign Date: 10/28/2023 8:02:17 AM Ordering Provider: SHELLEY Persaud [facility] ([place]) Absolute lymphocyte countOrd ered By: Sravan Garsia on 04-28-2023 Lymphocytes Auto (Unsp spec) [#/Vol] 1.87 10*3/uL 0.83-4.51 [facility] Basophil percentageOrdered B y: Sravan Garsia on 04-28-2023 Basophils/100 WBC (Bld) 0.5 % 0-1 [facility] Bilirubin [Mass/Vol] 0.40 mg/dL 0.20-1.00 [facility] Comment on above: For patients on eltr ombopag therapy, use of Dimension [place] TBIL is not recommended. Chloride [Moles/Vol] 107 mmol/L 98-107 [facility] Cholesterol [Mass/Vol] 200 mg/dL <200 [facility] Comment on above: <200 mg/dL Desirable 200-240 mg/dL Borderline >240 mg/dL High Risk Eosinophils/100 WBC (Bld) 2.7 % 0-5 [facility] Glucose [Mass/Vol] 189 mg/dL 74-106 [facility] Comment on above: Fasting Glucose resu lt greater than or equal to 126 mg/dL suggests DIABETES MELLITUS per A.D.A. criteria. Neutrophils (Bld) [#/Vol] 3.6 10*3/uL 2.0-7.7 [facility] Neutrophils/100 WBC (Bld) 57.8 % 47-70 [facility] Potassium [Moles/Vol] 4.6 mmol/L 3.5-5.1 [facility] Protein [Mass/Vol] 7.4 g/dL 6.4-8.2 [facility] Sodium [Moles/Vol] 137 mmol/L 136-145 [facility] Triglyceride [Mass/Vol] 225 mg/dL <199 [facility] Comment on above: The drugs N-Acetylcy steine and Metamizole may falsely depress this assay.Serum Triglycerides Reference Interval Normal <150 mg/dL Borderline high 150 - 199 mg/dL High 200 - 499 mg/dL Very High > or = 500 mg/dL WBC (Bld) [#/Vol] 6.3 10*3/uL 4.4-11.0 [facility] Blood erythrocytes count (nu mber/volume)Ordered By: Sravan Garsia on 04-28-2023 RBC (Bld) [#/Vol] 4.34 10*6/uL 4.6-6.2 [facility] Blood hemoglobin measurement (mass/volume)Ordered By: Sravan Garsia on 04-28-2023 Hemoglobin (Bld) [Mass/Vol] 13.5 g/dL 13.0-16.5 [facility] Blood lymphocytes/100 leukoc ytesOrdered By: Sravan Garsia on 04-28-2023 Lymphocytes/100 WBC (Bld) 29.9 % 19-41 [facility] Blood monocytes/100 leukocyt esOrdered By: Sravan Garsia on 04-28-2023 Monocytes/100 WBC (Bld) 8.5 % 0-10 [facility] Blood platelet mean volumeOr dered By: Sravan Garsia on 04-28-2023 Platelet mean volume (Bld) [Entitic vol] 10.6 fL 6.2-12.0 [facility] Determination of erythrocyte mean corpuscular volume (MCV)Ordered By: Sravan Garsia on 04-28-2023 MCV (RBC) [Entitic vol] 92.6 fL 80-94 [facility] Hematocrit Auto (Bld) [Volum e fraction]Ordered By: Sravan Garsia on 04-28-2023 Hematocrit (Bld) [Volume fraction] 40.2 % 40-54 [facility] Laboratory - Chemistry and C hemistry - challengeOrdered By: Sravanbrent Garsia on 04-28-2023 ALP [Catalytic activity/Vol] 75 U/L 45-117 [facility] ALT [Catalytic activity/Vol] 56 U/L 16-61 [facility] CO2 [Moles/Vol] 22.0 mmol/L 21.0-32.0 [facility] Free T4 [Mass/Vol] 1.26 ng/dL 0.76-1.46 [facility] Globulin (S) [Mass/Vol] 3.9 g/dL 2.2-4.2 [facility] Natriuretic peptide B (Bld) [Mass/Vol] 15.2 pg/mL 0-100 [facility] Urea nitrogen/Creatinine [Mass ratio] 13.9 mg/mg 10-20 [facility] Laboratory - Hematology and Cell countsOrdered By: Sravan Garsia on 04-28-2023 Erythrocyte distribution width (RBC) [Entitic vol] 46.1 fL 35.1-43.9 [facility] Erythrocyte distribution width (RBC) [Ratio] 13.6 % 11.6-14.6 [facility] Immature granulocytes/100 WBC (Bld) 0.600 % 0.0-0.9 [facility] Comment on above: IG% - Immature Granu locytes (promyelocytes, myelocytes and metamyelocytes) > 1% indicates that a LEFT SHIFT is Present. MCH (RBC) [Entitic mass] 31.1 pg 27.0-32.0 [facility] Nucleated RBC/100 WBC (Bld) [Ratio] 0 % 0-5 [facility] MCHC Auto (RBC) [Mass/Vol]Or dered By: Sravan Garsia on 04-28-2023 MCHC (RBC) [Mass/Vol] 33.6 g/dL 32-36 [facility] No Panel InformationOrdered By: Sravan Garsia on 04-28-2023 Estimated GFR (MDRD) Amer 93 mL/min >60 [facility] Comment on above: GFR Calc Estimated GFR (MDRD) Non-Af Amer 77 mL/min >60 [facility] Comment on above: Non- GFR Calc Free Triiodothyronine (T3) pg/dL 2.4 pg/mL 2.18-3.98 [facility] Thyroid Stimulating Hormone (TSH) 1.57 uIU/mL 0.358-3.74 [facility] Vitamin D 25-Hydroxy 28.5 ng/mL [facility] Comment on above: Vitamin D 25(OH) Sta tus Range Deficiency <20 ng/mL (50nmol/L) Insufficiency 20 - 30 ng/mL (50 - 75 nmol/L) Sufficiency 30 - 100 ng/mL (75 - 250 nmol/L) Toxicity >100 ng/mL (>250 nmol/L) Platelets bldOrdered By: America Garsia on 04-28-2023 Platelets (Bld) [#/Vol] 190 10*3/uL 150-450 [facility] Serum or plasma albumin kathleen urement (mass/volume)Ordered By: Sravan Garsia on 04-28-2023 Albumin [Mass/Vol] 3.5 g/dL 3.2-5.0 [facility] Serum or plasma albumin/glob ulin mass ratioOrdered By: Sravan Garsia on 04-28-2023 Albumin/Globulin [Mass ratio] 0.9 {ratio} 0.9-2.4 [facility] Serum or plasma calcium kathleen urement (mass/volume)Ordered By: Sravan Garsia on 04-28-2023 Calcium [Mass/Vol] 9.0 mg/dL 8.5-10.1 [facility] Serum or plasma cholesterol in HDL measurement (mass/volume)Ordered By: Sravan Garsia on 04-28-2023 Cholesterol in HDL [Mass/Vol] 51 mg/dL >40 [facility] Comment on above: The drugs N-Acetylcy steine and Metamizole may falsely depress this assay. Reference Range HDL <40 mg/dL Low HDL Cholesterol HDL >or= 60 mg/dL High HDL Cholesterol Serum or plasma cholesterol in VLDL measurement (mass/volume)Ordered By: Sravan Garsia on 04-28-2023 Cholesterol in VLDL [Mass/Vol] 45 mg/dL 5-40 [facility] Serum or plasma creatinine m easurement (mass/volume)Ordered By: Sravan Garsia on 04-28-2023 Creatinine [Mass/Vol] 1.08 mg/dL 0.70-1.30 [facility] Comment on above: The validity of the calculated GFR & GFRAA in patients over 70 years has not been determined. Clinical correlation is essential. Serum or plasma low density lipoprotein (LDL) cholesterol measurement (mass/volume)Ordered By: Sravan Garsia on 04-28-2023 Cholesterol in LDL [Mass/Vol] 104 mg/dL 0-130 [facility] Serum or plasma urea nitroge n measurement (mass/volume)Ordered By: Sravan Garsia on 04-28-2023 Urea nitrogen [Mass/Vol] 15 mg/dL 7-18 [facility] Thin prep Papanicolaou smear with manual screeningOrdered By: Sravan Garsia on 04-28-2023 Thin prep Papanicolaou smear with manual screening 42 U/L 15-37 [facility] Thin prep Papanicolaou smear with manual screening 8 5-15 [facility] Whole blood hemoglobin A1c/t otal hemoglobin ratio (mass fraction)Ordered By: Sravan Garsia on 04-28-2023 HbA1c (Bld) [Mass fraction] 6.9 % 3.8-5.6 [facility] Comment on above: Normal < 5.7 % Predi abetic 5.7 - 6.4 % Diabetic >or= 6.5 % Please note range changes. Basophil percentageon 2021 Bilirubin [Mass/Vol] 0.60 mg/dL 0.20-1.00 [facility] Work Phone: Comment on above: For patients on eltr ombopag therapy, use of Dimension Floyd TBIL is not recommended. Chloride [Moles/Vol] 102 mmol/L 98-107 [facility] Work Phone: Glucose [Mass/Vol] 165 mg/dL 74-106 [facility] Work Phone: Comment on above: Fasting Glucose resu lt greater than or equal to 126 mg/dL suggests DIABETES MELLITUS per A.D.A. criteria. Potassium [Moles/Vol] 4.0 mmol/L 3.5-5.1 [facility] Work Phone: Protein [Mass/Vol] 8.0 g/dL 6.4-8.2 [facility] Work Phone: Sodium [Moles/Vol] 135 mmol/L 136-145 [facility] Work Phone: Testosterone [Mass/Vol] 84 ng/dL [facility] Work Phone: Comment on above: Adult male reference interval is based on a population ofhealthy nonobese males (BMI <30) between 19 and 39 yearsold. Humble et.al. JCEM 2017,102;[id number]. PMID:[id number]. Free testosterone percentage on 07-17-2021 Testosterone Free/Testosterone.to huang [Mass fraction] 3.82 % [facility] Work Phone: Laboratory - Chemistry and C hemistry - challengeon 07-17-2021 ALP [Catalytic activity/Vol] 71 U/L 45-117 [facility] Work Phone: ALT [Catalytic activity/Vol] 56 U/L 16-61 [facility] Work Phone: CO2 [Moles/Vol] 24.0 mmol/L 21.0-32.0 [facility] Work Phone: Free T4 [Mass/Vol] 1.45 ng/dL 0.76-1.46 [facility] Work Phone: Globulin (S) [Mass/Vol] 3.9 g/dL 2.2-4.2 [facility] Work Phone: Urea nitrogen/Creatinine [Mass ratio] 10.9 mg/mg 10-20 [facility] Work Phone: No Panel Informationon 07-17 Estimated GFR (MDRD) Amer 77 mL/min >60 [facility] Work Phone: Comment on above: GFR Calc Estimated GFR (MDRD) Non-Af Amer 64 mL/min >60 [facility] Work Phone: Comment on above: Non- GFR Calc Follicle Stimulating Hormone 0.3 mIU/mL [facility] Work Phone: Comment on above: NORMAL REFERENCE RAN GES FEMALE FOLLICULAR 2.3 - 12.6 mIU/mL MID-CYCLE PEAK 5.2 - 17.5 mIU/mL LUTEAL 1.7 - 12.9 mIU/mL POST-MENOPAUSAL ON MHT 5.9 - 72.8 mIU/mL NOT ON MHT 12.7 - 132.2 mlU/mL MALE 0.7 - 10.8 mIU/mL Luteinizing Hormone < 0.2 mIU/mL [facility] Work Phone: Comment on above: NORMAL REFERENCE RAN GES FEMALE FOLLICULAR 1.9 - 26.2 mIU/mL MID-CYCLE PEAK 22.8 - 76.1 mIU/mL LUTEAL 0.6 - 16.6 mIU/mL POST-MENOPAUSAL ON MHT 1.1 - 52.4 mIU/mL NOT ON MHT 8.6 - 61.8 mIU/mL MALE 1.2 - 10.6 mIU/mL Thyroglobulin Antibody < 1.0 IU/mL [facility] Work Phone: Comment on above: Thyroglobulin Antibo dy measured by [employer] Thyroglobulin Level 0.1 ng/mL [facility] Work Phone: Comment on above: According to the [facility] [employer],the reference interval for Thyroglobulin (TG) should berelated to euthyroid patients and not for patients whounderwent thyroidectomy. TG reference intervals for thesepatients depend on the residual mass of the thyroid tissueleft after surgery. Establishing a post-operative baselineis recommended. The assay limit of quantitation is 0.1ng/mLThyroglobulin measured by [employer] ImmunometricAssayPerformed at: [facility] [id number] Director: Jose Riley PhD, Phone: [phone] at: [address] [id number] Director: Jeannie Duarte MD, Phone: [phone] Thyroid Stimulating Hormone (TSH) 0.30 uIU/mL 0.358-3.74 [facility] Work Phone: Urine Microalbumin/Creatin ine Ratio 74.5 mg/g CRE <30 [facility] Work Phone: Vitamin D 25-Hydroxy 30.2 ng/mL [facility] Work Phone: Comment on above: Vitamin D 25(OH) Sta tus Range Deficiency <20 ng/mL (50nmol/L) Insufficiency 20 - 30 ng/mL (50 - 75 nmol/L) Sufficiency 30 - 100 ng/mL (75 - 250 nmol/L) Toxicity >100 ng/mL (>250 nmol/L) Serum or plasma albumin kathleen urement (mass/volume)on 07-17-2021 Albumin [Mass/Vol] 4.1 g/dL 3.2-5.0 [facility] Work Phone: Serum or plasma albumin/glob ulin mass ratioon 07-17-2021 Albumin/Globulin [Mass ratio] 1.1 {ratio} 0.9-2.4 [facility] Work Phone: Serum or plasma calcium kathleen urement (mass/volume)on 07-17-2021 Calcium [Mass/Vol] 9.2 mg/dL 8.5-10.1 [facility] Work Phone: Serum or plasma creatinine m easurement (mass/volume)on 07-17-2021 Creatinine [Mass/Vol] 1.28 mg/dL 0.70-1.30 [facility] Work Phone: Comment on above: The validity of the calculated GFR & GFRAA in patients over 70 years has not been determined. Clinical correlation is essential. Serum or plasma prolactin me asurement (mass/volume)on 07-17-2021 Prolactin [Mass/Vol] 7.5 ng/mL [facility] Work Phone: Comment on above: NORMAL REFERENCE RAN GES FEMALE NON- 2.2 - 30.3 ng/mL 8.1 - 347.6 ng/mL POST-MENOPAUSAL 0.7 - 31.5 ng/mL MALE 2.5 - 17.4 ng/mL Serum or plasma testosterone free measurement (mass/volume)on 07-17-2021 Testosterone Free [Mass/Vol] 3.21 ng/dL [facility] Work Phone: Serum or plasma urea nitroge n measurement (mass/volume)on 07-17-2021 Urea nitrogen [Mass/Vol] 14 mg/dL 7-18 [facility] Work Phone: Thin prep Papanicolaou smear with manual screeningon 07-17-2021 Thin prep Papanicolaou smear with manual screening 34 U/L 15-37 [facility] Work Phone: Thin prep Papanicolaou smear with manual screening 9 5-15 [facility] Work Phone: Thin prep Papanicolaou smear with manual screening 114.0 mg/L NO RANGE EST. [facility] Work Phone: Urine creatinine measurement (mass/volume)on 07-17-2021 Creatinine (U) [Mass/Vol] 153.00 mg/dL NO RANGE EST. [facility] Work Phone: Vital Signs Date Time Vital Sign Value Performing Clinician Facility 11-09-2024 13:46-0400 Body height 190.[address] Sravan Garsia MD Work Phone: [facility] 11-09-2024 13:46-0400 Body mass index (BMI) [Ratio] 41.3 kg/m2 Dr. Sravan Garsia MD Work Phone: [facility] 11-09-2024 13:46-0400 Body weight 150.[address] Sravan Garsia MD Work Phone: [facility] 11-09-2024 13:46-0400 Diastolic blood pressure 98 mm[Hg] Dr. Sravan Garsia MD Work Phone: [facility] 11-09-2024 13:46-0400 Heart rate 73 /min Dr. Sravan Garsia MD Work Phone: [facility] 11-09-2024 13:46-0400 SaO2% (BldA) [Mass fraction] 99 % Dr. Sravan Garsia MD Work Phone: [facility] 11-09-2024 13:46-0400 Systolic blood pressure 150 mm[Hg] Dr. Sravan Garsia MD Work Phone: [facility] 09-20-2024 13:41-0400 Body height 190.[address] Sravan Garsia MD Work Phone: [facility] 09-20-2024 13:41-0400 Body mass index (BMI) [Ratio] 42.1 kg/m2 Dr. Sravan Garsia MD Work Phone: [facility] 09-20-2024 13:41-0400 Body weight 152.[address] Sravan Garsia MD Work Phone: [facility] 09-20-2024 13:41-0400 Diastolic blood pressure 70 mm[Hg] Dr. Sravan Garsia MD Work Phone: [facility] 09-20-2024 13:41-0400 Systolic blood pressure 120 mm[Hg] Dr. Sravan Garsia MD Work Phone: [facility] 08-03-2024 13:39-0400 Body height 190.[address] Sravan Garsia MD Work Phone: [facility] 08-03-2024 13:39-0400 Body mass index (BMI) [Ratio] 44.2 kg/m2 Dr. Sravan Garsia MD Work Phone: [facility] 08-03-2024 13:39-0400 Body weight 160.[address] Sravan Garsia MD Work Phone: [facility] 08-03-2024 13:39-0400 Diastolic blood pressure 85 mm[Hg] Dr. Sravan Garsia MD Work Phone: [facility] 08-03-2024 13:39-0400 Heart rate 80 /min Dr. Sravan Garsia MD Work Phone: [facility] 08-03-2024 13:39-0400 SaO2% (BldA) [Mass fraction] 98 % Dr. Sravan Garsia MD Work Phone: [facility] 08-03-2024 13:39-0400 Systolic blood pressure 133 mm[Hg] Dr. Sravan Garsia MD Work Phone: [facility] 10-28-2023 08:31-0400 Blood Pressure Location [facility]LEY JONESCan[employer]Wait [facility] 10-28-2023 08:31-0400 Blood Pressure Method [employer] D [facility] 10-28-2023 08:31-0400 Diastolic Blood Pressure Non-Invasive 94 mm[Hg] [employer] [facility] 10-28-2023 08:31-0400 Heart rate 76 /min [employer] DO [facility] 10-28-2023 08:31-0400 Respiratory rate 18 /min SHELLEY JONEST DO [facility] 10-28-2023 08:31-0400 Systolic Blood Pressure Non-Invasive 152 mm[Hg] [facility]LEY [employer] DO [facility] 10-28-2023 07:18-0400 Blood Pressure Location [facility]LEY [employer] DO [facility] 10-28-2023 07:18-0400 Blood Pressure Method SHELLEY [employer] D [facility] 10-28-2023 07:18-0400 Body temperature 98.24 [degF] [employer] [facility] 10-28-2023 07:18-0400 Diastolic Blood Pressure Non-Invasive 98 mm[Hg] SHE[employer]LEY [employer] DO [facility] 10-28-2023 07:18-0400 Heart rate 73 /min [employer]LEY [employer] [facility] 10-28-2023 07:18-0400 Respiratory rate 18 /min [facility] 10-28-2023 07:18-0400 Systolic Blood Pressure Non-Invasive 150 mm[Hg] [facility] 06-30-2022 16:47-0400 Diastolic Blood Pressure Non-Invasive 116 1 JOHNNY GARCIA MD [facility] 06-30-2022 16:47-0400 Heart rate 96 /min JOHNNY GARCIA MD [facility] 06-30-2022 16:47-0400 Respiratory rate 18 /min JOHNNY GARCIA MD [facility] 06-30-2022 16:47-0400 Systolic Blood Pressure Non-Invasive 183 1 JOHNNY GARCIA MD [facility] 06-30-2022 14:23-0400 Blood Pressure Location JOHNNY GARCIA MD [facility] 06-30-2022 14:23-0400 Body height 190.5 cm JOHNNY GARCIA MD [facility] 06-30-2022 14:23-0400 Body temperature 97.7 [degF] JOHNNY GARCIA MD [facility] 06-30-2022 14:23-0400 Body weight 181.8 kg JOHNNY GARCIA MD [facility] 06-30-2022 14:23-0400 Diastolic Blood Pressure Non-Invasive 90 1 JOHNNY GARCIA MD [facility] 06-30-2022 14:23-0400 Heart rate 111 /min JOHNNY GARCIA MD [facility] 06-30-2022 14:23-0400 Respiratory rate 16 /min JOHNNY GARCIA MD [facility] 06-30-2022 14:23-0400 Systolic Blood Pressure Non-Invasive 155 1 JOHNNY GARCIA MD [facility] 12-11-2021 16:26-0400 Diastolic blood pressure 103 mm[Hg] Dr. Sravan Garsia Work Phone: [facility] Work Phone: 12-11-2021 16:26-0400 Heart rate 92 /min Dr. Sravan Garsia Work Phone: [facility] Work Phone: 12-11-2021 16:26-0400 Respiratory rate 15 /min Dr. Sravan Garsia Work Phone: [facility] Work Phone: 12-11-2021 16:26-0400 SaO2% (BldA) [Mass fraction] 99 % Dr. Sravan Garsia Work Phone: [facility] Work Phone: 12-11-2021 16:26-0400 Systolic blood pressure 196 mm[Hg] Dr. Sravan Garsia Work Phone: [facility] Work Phone: 12-11-2021 15:39-0400 Body height 190.[address] Sravan Garsia Work Phone: [facility] Work Phone: 12-11-2021 15:39-0400 Body mass index (BMI) [Ratio] 50 kg/m2 Dr. Sravan Garsia Work Phone: [facility] Work Phone: 12-11-2021 15:39-0400 Body temperature 97.4 [degF] Dr. Sravan Garsia Work Phone: [facility] Work Phone: 12-11-2021 15:39-0400 Body weight 181.[address] Sravan Garsia Work Phone: [facility] Work Phone: 08-27-2021 08:34-0400 Body mass index (BMI) [Ratio] 50.3 kg/m2 Dr. Sravan Garsia Work Phone: [facility] Work Phone: 08-27-2021 08:34-0400 Body temperature 95.2 [degF] Dr. Sravan Garsia Work Phone: [facility] Work Phone: 08-27-2021 08:34-0400 Body weight 182.[address] Sravan Garsia Work Phone: [facility] Work Phone: 08-27-2021 08:34-0400 Diastolic blood pressure 98 mm[Hg] Dr. Sravan Garsia Work Phone: [facility] Work Phone: 08-27-2021 08:34-0400 Heart rate 80 /min Dr. Sravan Garsia Work Phone: [facility] Work Phone: 08-27-2021 08:34-0400 Respiratory rate 18 /min Dr. Sravan Garsia Work Phone: [facility] Work Phone: 08-27-2021 08:34-0400 SaO2% (BldA) [Mass fraction] 97 % Dr. Sravan Garsia Work Phone: [facility] Work Phone: 08-27-2021 08:34-0400 Systolic blood pressure 150 mm[Hg] Dr. Sravan Garsia Work Phone: [facility] Work Phone: 07-17-2021 10:23-0400 Body height 190.[address] Sravan Garsia Work Phone: [facility] Work Phone: 07-17-2021 10:23-0400 Body mass index (BMI) [Ratio] 50.3 kg/m2 Dr. Sravan Garsia Work Phone: [facility] Work Phone: 07-17-2021 10:23-0400 Body temperature 95.2 [degF] Dr. Sravan Garsia Work Phone: [facility] Work Phone: 07-17-2021 10:23-0400 Body weight 182.[address] Sravan Garsia Work Phone: [facility] Work Phone: 07-17-2021 10:23-0400 Diastolic blood pressure 130 mm[Hg] Dr. Sravan Garsia Work Phone: [facility] Work Phone: 07-17-2021 10:23-0400 Heart rate 94 /min Dr. Sravan Garsia Work Phone: [facility] Work Phone: 07-17-2021 10:23-0400 Respiratory rate 18 /min Dr. Sravan Garsia Work Phone: [facility] Work Phone: 07-17-2021 10:23-0400 SaO2% (BldA) [Mass fraction] 94 % Dr. Sravan Garsia Work Phone: [facility] Work Phone: 07-17-2021 10:23-0400 Systolic blood pressure 180 mm[Hg] Dr. Sravan Garsia Work Phone: [facility] Work Phone: 06-19-2021 09:57-0500 Body mass index (BMI) [Ratio] 50.1 kg/m2 Dr. Sravan Garsia Work Phone: [facility] Work Phone: 06-19-2021 09:57-0500 Body temperature 96.4 [degF] Dr. Sravan Garsia Work Phone: [facility] Work Phone: 06-19-2021 09:57-0500 Body weight 181.[address] Sravan Garsia Work Phone: [facility] Work Phone: 06-19-2021 09:57-0500 Diastolic blood pressure 92 mm[Hg] Dr. Sravan aGrsia Work Phone: [facility] Work Phone: 06-19-2021 09:57-0500 Heart rate 68 /min Dr. Sravan Garsia Work Phone: [facility] Work Phone: 06-19-2021 09:57-0500 Respiratory rate 16 /min Dr. Sravan Garsia Work Phone: [facility] Work Phone: 06-19-2021 09:57-0500 SaO2% (BldA) [Mass fraction] 98 % Dr. Sravan Garsia Work Phone: [facility] Work Phone: 06-19-2021 09:57-0500 Systolic blood pressure 160 mm[Hg] Dr. Sravan Garsia Work Phone: [facility] Work Phone: Encounters Encounter Date Encounter Type Care Provider Facility Start: 12-22-2024 End: 12-22-2024 ambulatory Sravan Garsia Facility:[facility] Start: 12-16-2024 ambulatory Sravan Garsia Facility :[facility] Start: 11-09-2024 End: 11-09-[address] Katie Montelongo MD -[facility] Work Phone: Start: 11-09-2024 End: 11-09-[address] Sravan Garsia MD Work Phone: -[facility] Start: 10-14-2024 End: 10-14-2024 Emergency department patient visit DR JANI BRAGG MD [facility] Start: 09-23-2024 End: 09-23-2024 Patient encounter procedure Katie Montelongo MD -[facility] Work Phone: Start: 09-23-2024 End: 09-23-[address] Sravan Garsia MD Work Phone: [facility] Work Phone: Start: 09-20-2024 End: 09-20-[address] Sravan Garsia MD Work Phone: [facility] Work Phone: Start: 09-20-2024 End: 09-20-[address] Katie Montelongo MD -[facility] Work Phone: Start: 09-20-2024 End: 09-20-2024 ambulatory Katie Montelongo Facility:[facility] Start: 08-12-2024 End: 08-12-[address] Sravan Garsia MD Work Phone: [facility] Work Phone: Start: 08-12-2024 End: 08-12-[address] [facility] Start: 08-12-2024 End: 08-12-2024 ambulatory Katie Montelongo Facility:[facility] Start: 08-03-2024 End: 08-03-[address] Katie Montelongo MD -[facility] Work Phone: Start: 08-03-2024 End: 08-03-2024 ambulatory [facility] Facility:[facility] Start: 07-05-2024 ambulatory [facility] Facility :[facility] Start: 01-16-2024 [facility] Facility :[facility] Start: 10-28-2023 End: 10-28-2023 Emergency department patient visit SHELLEY ISABELLEJAMES HUMMEL [facility] Start: 04-28-2023 End: 04-28-2023 ambulatory [facility] Work Phone: Start: 04-28-2023 End: 04-28-2023 Patient encounter procedure [facility] Work Phone: Start: 06-30-2022 End: 06-30-2022 Emergency department patient visit JOHNNY GARCIA MD [facility] Start: 12-11-2021 Non-patient / Non-visit Dr. Sravan Garsia Work Phone: [facility] Start: 12-11-2021 End: 12-11-2021 Emergency department patient visit Dr. Sravan Garsia Work Phone: [facility]-Emergency Department Start: 11-19-2021 End: 11-19-[address] Sravan Garsia Work Phone: [facility] Start: 10-19-2021 End: 10-19-2021 Patient encounter procedure SRAVAN GARSIA MD [facility] Start: 09-05-2021 End: 09-05-[address] Sravan Garsia Work Phone: [facility] Start: 08-27-2021 End: 08-27-[address] Sravan Garsia Work Phone: [facility] Start: 08-20-2021 End: 08-20-2021 Patient encounter procedure KATIE MONTELONGO MD [facility] Start: 08-01-[address] Sravan Garsia Work Phone: [facility]-Physical Therapy Start: 07-30-2021 Non-patient / Non-visit Dr. Sravan Garsia Work Phone: [facility] Start: 07-30-2021 End: 07-30-[address] Sravan Garsia Work Phone: [facility]Cardi[facility] Start: 07-19-[address] Sravan Garsia Work Phone: [facility] Start: 07-17-2021 End: 07-17-[address] Sravan Garsia Work Phone: [facility]atory, [facility] Start: 07-17-2021 End: 07-17-[address] Sravan Garsia Work Phone: [facility] Start: 06-19-2021 End: 06-19-[address] Sravan Garsia Work Phone: [facility] Internal Medicine Procedures Date Procedure Procedure Detail Performing Clinician Start: 08-12-[address] Sravan braswell MD Work Phone: Comment on above: According to the National Academy of Cli nical Biochemistry,the reference interval for Thyroglobulin (TG) should berelated to euthyroid patients and not for patients whounderwent thyroidectomy. TG reference intervals for thesepatients depend on the residual mass of the thyroid tissueleft after surgery. Establishing a post-operative baselineis recommended. The assay limit of quantitation is 0.1ng/mLThyroglobulin measured by Trovit ImmunometricAssayPerformed at: [facility] [id number] Director: Jose Riley PhD, Phone: [phone] Start: 08-12-[address] Mirza Garsia MD Work Phone: Comment on above: Thyroglobulin Antibody measured by LuaMethodologyIt should be noted that the presence of thyroglobulinantibodies may not be pathogenic nor diagnostic, especiallyat very low levels. The assay parole board member has found thatfour percent of individuals without evidence of thyroiddisease or autoimmunity will have positive TgAb levels upto 4 IU/mL. Start: 08-12-2024 Urine microalbumin/creatinine ratio measurement Dr. Sravan Garsia MD Work Phone: Comment on above: Previous reported result: 287.0 mg/g CRE Edited by: SEDRICK on 10/08/24:0755 AMENDED REPORT 10/08/24 0755 MALB:CREAT previously reported as: 287.0 mg/g CRE Start: 09-05-2021 X-ray of cervical spine Dr. Sravan dill Work Phone: History of thyroidectomy H/O thyroidectom y Dr. Sravan Garsia Work Phone: Plan of Treatment Date Care Activity Detail Author Start: 11-20-2021 Patient referral [facility] Work Phone: Start: 08-27-2021 Patient referral [facility] Work Phone: Start: 06-19-2021 Patient referral [facility] Work Phone: Comprehensive metabo lic 2000 panel - Serum or Plasma [facility] Patient Education ED Pain, Acute , Uncertain Cause ED Muscle Strain, Extremity [facility] Work Phone: Patient referral [facility] Work Phone: Testosterone Free [Mass/volume] in Serum or Plasma [facility] Testosterone measurement [facility] Testosterone measurement [facility] Thyroglobulin and Thyrogobulin Ab panel - Serum or Plasma [facility] Thyroid stimulating hormone measurement [facility] Immunizations Immunization Date Immunization Notes Care Provider Fa [facility] 06-30-2022 tetanus toxoid, redu leonie diphtheria toxoid, and acellular pertussis vaccine, adsorbed JOHNNY GARCIA MD [facility] 01-30-2022 influenza, injectabl e, quadrivalent, preservative free [facility] Payers Date Payer Category Payer Self-pay [id number] 2023 Unknown [id number] 2021 Private Health Insurance [id number] 1975 Unknown [id number] .16.8 [id number] 1975 Unknown [id number] .16. [id number] Unknown [id number] .16.8 [id number] Unknown [id number] 2.16.8 [id number] Unknown [id number] 2.16.8 [id number] Unknown [id number] 2.16.8 [id number] Unknown [id number] 2.16.8 [id number] Unknown [id number] 2.16.8 [id number] Unknown [id number] 2.16.8 [id number] Unknown [id number] 2.16.8 [id number] Unknown [id number] 2.16.8 [id number] Social History Date Type Detail Facility Start: 07-17-2021 End: 12-06-2022 Tobacco smoking status [facility] Unknown if ever smoked [facility] Start: 1975 Sex Assigned At Male [facility] Work Phone: Tobacco smoking status [facility] Start: 06-13-2023 End: 09-20-2024 Tobacco smoking status [facility] Ex-smoker (finding) [facility] Start: 08-07-2021 End: 08-17-2024 Sex Male (finding) [facility] Medical Equipment Procedure Code Equipment Code Equipment Origin al Text Equipment Identifier Dates Blood Sugar Diagnostic (Onetouch Verio Test Strips) strip Start: 11-21-2023 Lancets (Onetouc h Delica Plus Lancet) 33 gauge [facility] Start: 11-21-2023 Blood Sugar Diagnostic (Onetouch Verio Test Strips) strip Start: 11-21-2023 Lancets (Onetouc h Delica Plus Lancet) 33 gauge mis Start: 11-21-2023 Blood Sugar Diagnostic (Onetouch Verio Test Strips) strip Start: 11-21-2023 Lancets (Onetouc h Delica Plus Lancet) 33 gauge mis Start: 11-21-2023 Blood Sugar Diagnostic (Onetouch Verio Test Strips) strip Start: 11-21-2023 Lancets (Onetouc h Delica Plus Lancet) 33 gauge [facility] Start: 11-21-2023 Functional Status Date Assessment Result Facility 10-28-2023 Functional Status Independent [facility] 10-28-2023 Functional Status ID band on, Allergy Band on, Call device within reach, Bed in low position, Wheels locked, Upper/Half-Length side-rails up, Safety level maintained [facility] 06-30-2022 Functional Status Independent [place] Tyrone almodovar [facility] 06-30-2022 Functional Status Standard Safet y ID band on, Call device within reach, Bed in low position, Wheels locked, Safety level maintained [facility] Mental Status Date Assessment Result Facility 10-28-2023 Mental Status Orientation Oriented x 4 [facility] 10-28-2023 Mental Status [facility] [place] [facility] 06-30-2022 Mental Status Orientation Oriented x 4 [facility] Clinical Notes 06-30-2022 to 10-17-2024 Note Date & Type Note Facility 10-17-2024 Note . MICRO - Microbiology PROCEDURE: Culture Wound Aerobic with Gram Stain [*1] SOURCE: Abscess BODY SITE: Thumb COLLECTED DATE/TIME: 10/14/2024 16:36 EDT RECEIVED DATE/TIME: 10/15/2024 15:17 EDT START DATE/TIME: 10/15/2024 15:18 EDT FREE TEXT SOURCE: FINAL REPORTS Final Report [] Verified Date/Time/Personnel: 10/17/2024 07:24 EDT No growth at 48 hours. PRELIMINARY REPORTS Preliminary Report [] Verified Date/Time/Personnel: 10/16/2024 09:48 EDT No growth to date STAINS GS [] Verified Date/Time/Personnel: 10/15/2024 19:13 EDT 2+ Mononuclear cells 1+ Polymorphonuclear cells No organisms seen. Performing Locations *1: This test was performed at: [facility], [address] [place] [address], [id number] , [facility] 10-14-2024 Hospital Discharge instructions Patient Education 10/14/2024 16:34:56 Abscess, Incision And Drainage Abscess (Incision & Drainage) An abscess is sometimes called a boil. It happens when bacteria get trapped under the skin and start to grow. Pus forms inside the abscess as the body responds to the bacteria. An abscess can happen with an insect bite, ingrown hair, blocked oil gland, pimple, cyst, or puncture wound. Your healthcare provider has drained the pus from your abscess. If the abscess pocket was large, your healthcare provider may have put in gauze packing. Your provider will need to remove it on your next visit. He or she may also replace it at that time. You may not need antibiotics to treat a simple abscess, unless the infection is spreading into the skin around the wound (cellulitis). The wound will take about 1 to 2 weeks to heal, depending on the size of the abscess. Healthy tissue will grow from the bottom and sides of the opening until it seals over. Home care These tips can help your wound heal: The wound may drain for the first 2 days. Cover the wound with a clean dry dressing. Change the dressing if it becomes soaked with blood or pus. If a gauze packing was placed inside the abscess pocket, you may be told to remove it yourself. You may do this in the shower. Once the packing is removed, you should wash the area in the shower, or clean the area as directed by your provider. Continue to do this until the skin opening has closed. Make sure you wash your hands after changing the packing or cleaning the wound. If you were prescribed antibiotics, take them as directed until they are all gone. You may use acetaminophen or ibuprofen to control pain, unless another pain medicine was prescribed. If you have liver disease or ever had a stomach ulcer, talk with your doctor before using these medicines. Follow-up care Follow up with your healthcare provider, or as advised. If a gauze packing was put in your wound, it should be removed in 1 to 2 days. Check your wound every day for any signs that the infection is getting worse. The signs are listed below. When to seek medical advice Call your healthcare provider right away if any of these occur: Increasing redness or swelling Red streaks in the skin leading away from the wound Increasing local pain or swelling Continued pus draining from the wound 2 days after treatment Fever of 100.4 F (38 C) or higher, or as directed by your healthcare provider Boil returns when you are at home [id number] [employer]. [address] [address], [place] [id number]. All rights reserved. This information is not intended as a substitute for professional medical care. Always follow your healthcare professional's instructions. Follow Up Care 10/14/2024 16:03:16 With:SRAVAN GARSIA MD Address: [address] [address] [phone] When:2-[facility]14[facility]24 Note Discharge Instructions Thank you for allowing [place] to assist you with your healthcare needs. The following is important discharge information regarding your hospital visit. Diagnosis from Today's Visit Abscess of finger of right hand What to Do Next Instructions from Your Care Team Follow-up with your primary care physician reason for results of the cultures in 2 days. As we discussed to limit your time in the sun with the Bactrim as people can sometimes develop a photosensitive reaction. No qualifying data available. Post Acute Orders No qualifying data available. You Need to Schedule the Following Appointments Follow Up with SRAVAN GARSIA MD When:Within 2-4 days Where:[address] [address] [phone] Allergies Keflex Medications Please ask your primary doctor or pharmacist before taking any other medication not listed, including over the counter drugs, herbal medications, vitamins and or supplements as they may interact with your home medications. What How Much When Instructions Last Dose New sulfamethoxazole-trimethoprim (Bactrim DS 800 mg-160 mg oral tablet) 1 tab(s) by mouth Two (2) times a day Duration: 10 Days Printed Prescription Please take this list to your next doctor s visit. Bring all medications you take, including over the counter medications, herbals and other supplements with you to your doctor s visit. Patients and families are reminded to discard old lists and to update any records with all medication providers or retail pharmacies. Education Materials Abscess (Incision & Drainage) An abscess is sometimes called a boil. It happens when bacteria get trapped under the skin and start to grow. Pus forms inside the abscess as the body responds to the bacteria. An abscess can happen with an insect bite, ingrown hair, blocked oil gland, pimple, cyst, or puncture wound. Your healthcare provider has drained the pus from your abscess. If the abscess pocket was large, your healthcare provider may have put in gauze packing. Your provider will need to remove it on your next visit. He or she may also replace it at that time. You may not need antibiotics to treat a simple abscess, unless the infection is spreading into the skin around the wound (cellulitis). The wound will take about 1 to 2 weeks to heal, depending on the size of the abscess. Healthy tissue will grow from the bottom and sides of the opening until it seals over. Home care These tips can help your wound heal: The wound may drain for the first 2 days. Cover the wound with a clean dry dressing. Change the dressing if it becomes soaked with blood or pus. If a gauze packing was placed inside the abscess pocket, you may be told to remove it yourself. You may do this in the shower. Once the packing is removed, you should wash the area in the shower, or clean the area as directed by your provider. Continue to do this until the skin opening has closed. Make sure you wash your hands after changing the packing or cleaning the wound. If you were prescribed antibiotics, take them as directed until they are all gone. You may use acetaminophen or ibuprofen to control pain, unless another pain medicine was prescribed. If you have liver disease or ever had a stomach ulcer, talk with your doctor before using these medicines. Follow-up care Follow up with your healthcare provider, or as advised. If a gauze packing was put in your wound, it should be removed in 1 to 2 days. Check your wound every day for any signs that the infection is getting worse. The signs are listed below. When to seek medical advice Call your healthcare provider right away if any of these occur: Increasing redness or swelling Red streaks in the skin leading away from the wound Increasing local pain or swelling Continued pus draining from the wound 2 days after treatment Fever of 100.4 F (38 C) or higher, or as directed by your healthcare provider Boil returns when you are at home [phone] [employer]. [address] [address], [place] [address]. All rights reserved. This information is not intended as a substitute for professional medical care. Always follow your healthcare professional's instructions. Additional Information VACCINATE! IT SAVES LIVES! Members of the community who have not yet received the COVID-19 vaccine and would like to receive it can visit one of [facility] vaccine clinics. There are many vaccine clinic locations within the State. For locations and available times, please visit [email or web address] [email or web address] It is important to note that some COVID mobile vaccine clinics are held outdoors and may be canceled in rainy or stormy conditions. To learn more about pediatric vaccinations (ages 5-11), we invite you to visit the [facility] webpage. https://www.akintroNetworkss.org/pa [email or web address]-Amgvi-Piadddwtzdd-[email or web address] ivei-[email or web address]-Gyfglizuj.html To learn more about the COVID-19 vaccine, we invite you to visit the CDC website for a list of frequently asked questions. https://www.cdc.gov/coronavirus/2 019-ncov/vaccines/faq.html [facility] Patient Portal Access Instructions: Stay connected with your healthcare team and access your personal medical information anytime with the [facility] Patient Portal. If you would like a full copy of your medical records please contact the [facility] Medical Records Department Friday through Friday between 8a.m. and 4:30p.m. Please follow the directions below to access the portal: 1.Access the email account you provided upon registration to the hospital.2.Look for an invitation email from [facility].3.Open the email and access the invitation link: Accept Invitation to [facility]4.Fill in the required muro to create your account. Sign into [email or web address] with your username and password that you [...] you will allow to register on the [facility] Patient Portal for access to your information. You can also access the [facility] Patient Portal on the [employer]. Simply click on Health Records under Health Data and then click on the [employer] logo. HOW TO SAFELY DISPOSE OF PRESCRIPTION [...] Call your local pharmacy or go to [email or web address] to find one close to you.3.Make use of household items: Use cat litter or old coffee grounds to dispose medications if other options are not available. Mix your drugs with these household products, seal them in an airtight container and throw it into the garbage. Call [facility]: [phone] to be sure your drugs can be [...] a CHART COPY Signatures Patient Education Materials Abscess, Incision And Drainage Medication Leaflets My discharge plan and instructions have been reviewed and explained to me and IJOANNE WILLIAM P understand my current condition and have read and understand these discharge instructions. I have received a written copy of the plan/instructions. If I have questions, I am aware that I should contact my doctor. Patient/Unitizer Signature: Date/Time: Relationship to Patient: ____ Witness Name/Signature: Date/Time: [facility] 10-14-2024 Evaluation + Plan note Diagnostic Tests PendingCulture Wound Aerobic with Gram Stain 10/14/24 [facility] 08-03-2024 Evaluation note Diagnosis Onset Date Resolution Diabetes mellitus chronic July 202024 1:36pm Hypertension chronic August 03, 2024 1:36pm Obesity chronic August 03 1:36pm Postoperative primary hypothyroidism chronic August 03, 2024 1:36pm Thyroid cancer chronic July 1:36pm [facility] Work Phone: 1(117) 314-817204-15-2025 Evaluation note* Diagnosis Onset Date Resolution Status Admit Date Diabetes mellitus chronic July 202024 1:36pm Hypertension chronic August 03, 2024 1:36pm Obesity chronic August 03 1:36pm Postoperative primary hypothyroidism chronic August 03, 2024 1:36pm Thyroid cancer chronic July 1:36pm Uncontrolled hypertension acute September 23, 2024 7:51am Diabetes mellitus chronic November 092024 1:46pm Hyperlipidemia chronic November 09, 2024 1:46pm Hypertension chronic November 09, 2 025 1:46pm Hypogonadism in male chronic November 09, 2024 1:46pm Postoperative primary hypothyroidism chronic November 09, 2024 1:46pm Thyroid cancer chronic November 09, 2024 1:46pm [facility] Work Phone: 1(613) 229-669707-09-2024 Hospital Discharge instructions Patient Education 10/28/2023 08:40:14 Hypertension, Established Established High Blood Pressure High blood pressure (hypertension) is a chronic disease. Often, healthcare providers don t know what causes it. But it can be caused by certain health conditions and medicines. If you have high blood pressure, you may not have any symptoms. If you do have symptoms, they may include headache, dizziness, changes in your vision, chest pain, and shortness of breath. But even without symptoms, high blood pressure that s not treated raises your risk for heart attack, heart failure, and stroke. High blood pressure is a serious health risk and shouldn t be ignored. Blood pressure measurements are given as 2 numbers. Systolic blood pressure is the upper number. This is the pressure when the heart contracts. Diastolic blood pressure is the lower number. This is the pressure when the heart relaxes between beats. You will see your blood pressure readings written together. For example, a person with a systolic pressure of 118 and a diastolic pressure of 78 will have 118/78 written in the medical record. Blood pressure is categorized as normal, elevated, or stage 1 or stage 2 high blood pressure: Normal blood pressure is systolic of less than 120 and diastolic of less than 80 (120/80) Elevated blood pressure is systolic of 120 to 129 and diastolic less than 80 Stage 1 high blood pressure is systolic is 130 to 139 or diastolic between 80 to 89 Stage 2 high blood pressure is when systolic is 140 or higher or the diastolic is 90 or higher Home care If you have high blood pressure, follow these home care guidelines to help lower your blood pressure. If you are taking medicines for high blood pressure, these methods may reduce or end your need for medicines in the future. Start a weight-loss program if you are overweight. Cut back on how much salt you get in your diet. Here s how to do this: oDon t eat foods that have a lot of salt. These include olives, pickles, smoked meats, and salted potato chips. oDon t add salt to your food at the table. oUse only small amounts of salt when cooking. Start an exercise program. Talk with your healthcare provider about the type of exercise program that would be best for you. It doesn't have to be hard. Even brisk walking for 20 minutes 3 times a week is a good form of exercise. Don t take medicines that stimulate the heart. This includes many etpr-zts-aedbqkr cold and sinus decongestant pills and sprays, as well as diet pills. Check the warnings about high blood pressure onthe label. Before buying any yihk-inh-tjzrgdh medicines or supplements, always ask the pharmacist about the product's potential interaction with your high blood pressure and your high blood pressure medicines. Stimulants such as amphetamine or cocaine could be deadly for someone with high blood pressure. Never take these. Limit how much caffeine you get in your diet. Switch to caffeine-free products. Stop smoking. If you are a long-time smoker, this can be hard. Talk to your healthcare provider about medicines and nicotine replacement options to help you. Also, enroll in a stop-smoking program tomake it more likely that you will quit for good. Learn how to handle stress. This is an important part of any program to lower blood pressure. Learnabout relaxation methods like meditation, yoga, or biofeedback. If your provider prescribed medicines, take them exactly as directed. Missing doses may cause your blood pressure get out of control. If you miss a dose or doses, check with your healthcare provider or pharmacist about what to do. Consider buying an automatic blood pressure machine to check your blood pressure at home. Ask your provider for a recommendation. You can get one of these at most pharmacies. The [place] [employer] recommends the following guidelines for home blood pressure monitoring: Don't smoke or drink coffee for 30 minutes before taking your blood pressure. Go to the bathroom before the test. Relax for 5 minutes before taking the measurement. Sit with your back supported (don't sit on a couch or soft chair); keep your feet on the floor uncrossed. Place your arm on a solid flat surface (like a table) with the upper part of the arm at heartlevel. Place the middle of the cuff directly above the bend of the elbow. Check the monitor's instruction manual for an illustration. Take multiple readings. When you measure, take 2 to 3 readings one minute apart and record all of the results. Take your blood pressure at the same time every day, or as your healthcare provider recommends. Record the date, time, and blood pressure reading. Take the record with you to your next medical appointment. If your blood pressure monitor has a built-in memory, simply take the monitor with you to your next appointment. Call your provider if you have several high readings. Don't be frightened by a single high blood pressure reading, but if you get several high readings, check in with your healthcare provider. Note: When blood pressure reaches a systolic (top number) of 180 or higher OR diastolic (bottom number) of 110 or higher, seek emergency medical treatment. Follow-up care You will need to see your healthcare provider regularly. This is to check your blood pressure and to make changes to your medicines. Make a follow-up appointment as directed. Bring the record of yourhome blood pressure readings to the appointment. When to seek medical advice Call your healthcare provider right away if any of these occur: Blood pressure reaches a systolic (upper number) of 180 or higher OR a diastolic (bottom number) of110 or higher Chest pain or shortness of breath Severe headache Throbbing or rushing sound in the ears Nosebleed Sudden severe pain in your belly (abdomen) Extreme drowsiness, confusion, or fainting Dizziness or spinning sensation (vertigo) Weakness of an arm or leg or one side of the face You have problems speaking or seeing [phone] [employer]. [address] [place] [address]. All rights reserved. This information is not intended as a substitute for professional medical care. Always follow yourhealthcare professional's instructions. 10/28/2023 08:39:52 Chest Wall Pain, Costochondritis Chest Wall Pain: Costochondritis The chest pain that you have had today is caused by costochondritis. This condition is caused by aninflammation of the cartilage joining your ribs to your breastbone. It is not caused by heart or lung problems. Your healthcare team has made sure that the chest pain you feel is not from a life threatening cause of chest pain such as heart attack, collapsed lung, blood clot in the lung, tear in the aorta, or esophageal rupture. The inflammation may have been brought on by a blow to the chest, lifting heavy objects, intense exercise, or an illness that made you cough and sneeze a lot. It often occurs during times of emotional stress. It can be painful, but it is not dangerous. It usually goesaway in 1 to 2 weeks. But it may happen again. Rarely, a more serious condition may cause symptoms similar to costochondritis. That s why it s important to watch for the warning signs listed below. Home care Follow these guidelines when caring for yourself at home: If you feel that emotional stress is a cause of your condition, try to figure out the sources of that stress. It may not be obvious. Learn ways to deal with the stress in your life. This can include regular exercise, muscle relaxation, meditation, or simply taking time out for yourself. You may use acetaminophen, ibuprofen, or naproxen to control pain, unless another pain medicine wasprescribed. If you have liver or kidney disease or ever had a stomach ulcer, talk with your healthcare provider before using these medicines. You can also help ease pain by using a hot, wet compress or heating pad. Use this with or without amedicated skin cream that helps relieves pain. Do stretching exercise as advised by your provider. Take any prescribed medicines as directed. Follow-up care Follow up with your healthcare provider, or as advised, if you do not start to get better in the next 2 days. When to seek medical advice Call your healthcare provider right away if any of these occur: A change in the type of pain. Call if it feels different, becomes more serious, lasts longer, or spreads into your shoulder, arm, neck, jaw, or back. Shortness of breath or pain gets worse when you breathe Weakness, dizziness, or fainting Cough with dark-colored sputum (phlegm) or blood Abdominal pain Dark red or black stools Fever of 100.4 F (38 C) or higher, or as directed by your healthcare provider [id number] [employer] [address] [address], [place] [address]. All rights reserved. This information is not intended as a substitute for professional medical care. Always follow yourhealthcare professional's instructions. 10/28/2023 08:39:51 Chest Pain, Uncertain Cause Uncertain Causes of Chest Pain Chest pain can happen for a number of reasons. Sometimes the cause can't be determined. If your condition does not seem serious, and your pain does not appear to be coming from your heart, your healthcare provider may recommend watching it closely. Sometimes the signs of a serious problem take moretime to appear. Many problems not related to your heart can cause chest pain. These include: Musculoskeletal. Costochondritis is an inflammation of the tissues around the ribs that can occur from trauma or overuse injuries, or a strain of the muscles of the chest wall Respiratory. Pneumonia, collapsed lung (pneumothorax), or inflammation of the lining of the chest and lungs (pleurisy) Gastrointestinal. Esophageal reflux, heartburn, ulcers, or gallbladder disease Anxiety and panic disorders Nerve compression and inflammation Rare miscellaneous problems such as aortic aneurysm (a swelling of the large artery coming out of the heart) or pulmonary embolism (a blood clot in the lungs) Home care After your visit, follow these recommendations: Rest today and avoid strenuous activity. Take any prescribed medicine as directed. Be aware of any recurrent chest pain and notice any changes Follow-up care Follow up with your healthcare provider if you do not start to feel better within 24 hours, or as advised. Call 911 Call 911 if any of these occur: A change in the type of pain: if it feels different, becomes more severe, lasts longer, or begins to spread into your shoulder, arm, neck, jaw or back Shortness of breath or increased pain with breathing Weakness, dizziness, or fainting Rapid heart beat Crushing sensation in your chest When to seek medical advice Call your healthcare provider right away if any of the following occur: Cough with dark colored sputum (phlegm) or blood Fever of 100.4 F (38 C) or higher, or as directed by your healthcare provider Swelling, pain or redness in one leg [phone] [employer] [address] [place] [address]. All rights reserved. This information is not intended as a substitute for professional medical care. Always follow yourhealthcare professional's instructions. Follow Up Care 10/28/2023 07:12:13 With:SRAVAN GARSIA MD Address: [address] [place] [phone] When:2-4 days [facility] 07-09-2024 Note Discharge Instructions Thank you for allowing [facility] to assist you with your healthcare needs. The following is importantdischarge information regarding your hospital visit. What to Do Next Instructions from Your Care Team No qualifying data available. Post Acute Orders No qualifying data available. You Need to Schedule the Following Appointments Follow Up with SRAVAN GARSIA MD When:Within 2-4 days Where:[address] [place] [phone] Allergies Keflex Medications Please ask your primary doctor or pharmacist before taking any other medication not listed, including over the counter drugs, herbal medications, vitamins and or supplements as they may interact withyour home medications. Please take this list to your next doctor s visit. Bring all medications you take, including over the counter medications, herbals and other supplements with you to your doctor s visit. Patients and families are reminded to discard old lists and to update any records with all medication providers or retail pharmacies. Education Materials Established High Blood Pressure High blood pressure (hypertension) is a chronic disease. Often, healthcare providers don t know what causes it. But it can be caused by certain health conditions and medicines. If you have high blood pressure, you may not have any symptoms. If you do have symptoms, they may include headache, dizziness, changes in your vision, chest pain, and shortness of breath. But even without symptoms, high blood pressure that s not treated raises your risk for heart attack, heart failure, and stroke. High blood pressure is a serious health risk and shouldn t be ignored. Blood pressure measurements are given as 2 numbers. Systolic blood pressure is the upper number. This is the pressure when the heart contracts. Diastolic blood pressure is the lower number. This is the pressure when the heart relaxes between beats. You will see your blood pressure readings written together. For example, a person with a systolic pressure of 118 and a diastolic pressure of 78 will have 118/78 written in the medical record. Blood pressure is categorized as normal, elevated, or stage 1 or stage 2 high blood pressure: Normal blood pressure is systolic of less than 120 and diastolic of less than 80 (120/80) Elevated blood pressure is systolic of 120 to 129 and diastolic less than 80 Stage 1 high blood pressure is systolic is 130 to 139 or diastolic between 80 to 89 Stage 2 high blood pressure is when systolic is 140 or higher or the diastolic is 90 or higher Home care If you have high blood pressure, follow these home care guidelines to help lower your blood pressure. If you are taking medicines for high blood pressure, these methods may reduce or end your need for medicines in the future. Start a weight-loss program if you are overweight. Cut back on how much salt you get in your diet. Here s how to do this: oDon t eat foods that have a lot of salt. These include olives, pickles, smoked meats, and salted potato chips. oDon t add salt to your food at the table. oUse only small amounts of salt when cooking. Start an exercise program. Talk with your healthcare provider about the type of exercise program that would be best for you. It doesn't have to be hard. Even brisk walking for 20 minutes 3 times a week is a good form of exercise. Don t take medicines that stimulate the heart. This includes many ukpv-rna-bmpwgik cold and sinus decongestant pills and sprays, as well as diet pills. Check the warnings about high blood pressure onthe label. Before buying any pmdm-erp-febigdq medicines or supplements, always ask the pharmacist about the product's potential interaction with your high blood pressure and your high blood pressure medicines. Stimulants such as amphetamine or cocaine could be deadly for someone with high blood pressure. Never take these. Limit how much caffeine you get in your diet. Switch to caffeine-free products. Stop smoking. If you are a long-time smoker, this can be hard. Talk to your healthcare provider about medicines and nicotine replacement options to help you. Also, enroll in a stop-smoking program tomake it more likely that you will quit for good. Learn how to handle stress. This is an important part of any program to lower blood pressure. Learnabout relaxation methods like meditation, yoga, or biofeedback. If your provider prescribed medicines, take them exactly as directed. Missing doses may cause your blood pressure get out of control. If you miss a dose or doses, check with your healthcare provider or pharmacist about what to do. Consider buying an automatic blood pressure machine to check your blood pressure at home. Ask your provider for a recommendation. You can get one of these at most pharmacies. The [place] [employer] recommends the following guidelines for home blood pressure monitoring: Don't smoke or drink coffee for 30 minutes before taking your blood pressure. Go to the bathroom before the test. Relax for 5 minutes before taking the measurement. Sit with your back supported (don't sit on a couch or soft chair); keep your feet on the floor uncrossed. Place your arm on a solid flat surface (like a table) with the upper part of the arm at heartlevel. Place the middle of the cuff directly above the bend of the elbow. Check the monitor's instruction manual for an illustration. Take multiple readings. When you measure, take 2 to 3 readings one minute apart and record all of the results. Take your blood pressure at the same time every day, or as your healthcare provider recommends. Record the date, time, and blood pressure reading. Take the record with you to your next medical appointment. If your blood pressure monitor has a built-in memory, simply take the monitor with you to your next appointment. Call your provider if you have several high readings. Don't be frightened by a single high blood pressure reading, but if you get several high readings, check in with your healthcare provider. Note: When blood pressure reaches a systolic (top number) of 180 or higher OR diastolic (bottom number) of 110 or higher, seek emergency medical treatment. Follow-up care You will need to see your healthcare provider regularly. This is to check your blood pressure and to make changes to your medicines. Make a follow-up appointment as directed. Bring the record of yourhome blood pressure readings to the appointment. When to seek medical advice Call your healthcare provider right away if any of these occur: Blood pressure reaches a systolic (upper number) of 180 or higher OR a diastolic (bottom number) of110 or higher Chest pain or shortness of breath Severe headache Throbbing or rushing sound in the ears Nosebleed Sudden severe pain in your belly (abdomen) Extreme drowsiness, confusion, or fainting Dizziness or spinning sensation (vertigo) Weakness of an arm or leg or one side of the face You have problems speaking or seeing [id number] [employer] [address] [place] [address]. All rights reserved. This information is not intended as a substitute for professional medical care. Always follow yourhealthcare professional's instructions. Chest Wall Pain: Costochondritis The chest pain that you have had today is caused by costochondritis. This condition is caused by aninflammation of the cartilage joining your ribs to your breastbone. It is not caused by heart or lung problems. Your healthcare team has made sure that the chest pain you feel is not from a life threatening cause of chest pain such as heart attack, collapsed lung, blood clot in the lung, tear in the aorta, or esophageal rupture. The inflammation may have been brought on by a blow to the chest, lifting heavy objects, intense exercise, or an illness that made you cough and sneeze a lot. It often occurs during times of emotional stress. It can be painful, but it is not dangerous. It usually goesaway in 1 to 2 weeks. But it may happen again. Rarely, a more serious condition may cause symptoms similar to costochondritis. That s why it s important to watch for the warning signs listed below. Home care Follow these guidelines when caring for yourself at home: If you feel that emotional stress is a cause of your condition, try to figure out the sources of that stress. It may not be obvious. Learn ways to deal with the stress in your life. This can include regular exercise, muscle relaxation, meditation, or simply taking time out for yourself. You may use acetaminophen, ibuprofen, or naproxen to control pain, unless another pain medicine wasprescribed. If you have liver or kidney disease or ever had a stomach ulcer, talk with your healthcare provider before using these medicines. You can also help ease pain by using a hot, wet compress or heating pad. Use this with or without amedicated skin cream that helps relieves pain. Do stretching exercise as advised by your provider. Take any prescribed medicines as directed. Follow-up care Follow up with your healthcare provider, or as advised, if you do not start to get better in the next 2 days. When to seek medical advice Call your healthcare provider right away if any of these occur: A change in the type of pain. Call if it feels different, becomes more serious, lasts longer, or spreads into your shoulder, arm, neck, jaw, or back. Shortness of breath or pain gets worse when you breathe Weakness, dizziness, or fainting Cough with dark-colored sputum (phlegm) or blood Abdominal pain Dark red or black stools Fever of 100.4 F (38 C) or higher, or as directed by your healthcare provider [phone] [employer] [address] [place] [address]. All rights reserved. This information is not intended as a substitute for professional medical care. Always follow yourhealthcare professional's instructions. Uncertain Causes of Chest Pain Chest pain can happen for a number of reasons. Sometimes the cause can't be determined. If your condition does not seem serious, and your pain does not appear to be coming from your heart, your healthcare provider may recommend watching it closely. Sometimes the signs of a serious problem take moretime to appear. Many problems not related to your heart can cause chest pain. These include: Musculoskeletal. Costochondritis is an inflammation of the tissues around the ribs that can occur from trauma or overuse injuries, or a strain of the muscles of the chest wall Respiratory. Pneumonia, collapsed lung (pneumothorax), or inflammation of the lining of the chest and lungs (pleurisy) Gastrointestinal. Esophageal reflux, heartburn, ulcers, or gallbladder disease Anxiety and panic disorders Nerve compression and inflammation Rare miscellaneous problems such as aortic aneurysm (a swelling of the large artery coming out of the heart) or pulmonary embolism (a blood clot in the lungs) Home care After your visit, follow these recommendations: Rest today and avoid strenuous activity. Take any prescribed medicine as directed. Be aware of any recurrent chest pain and notice any changes Follow-up care Follow up with your healthcare provider if you do not start to feel better within 24 hours, or as advised. Call 911 Call 911 if any of these occur: A change in the type of pain: if it feels different, becomes more severe, lasts longer, or begins to spread into your shoulder, arm, neck, jaw or back Shortness of breath or increased pain with breathing Weakness, dizziness, or fainting Rapid heart beat Crushing sensation in your chest When to seek medical advice Call your healthcare provider right away if any of the following occur: Cough with dark colored sputum (phlegm) or blood Fever of 100.4 F (38 C) or higher, or as directed by your healthcare provider Swelling, pain or redness in one leg [id number] [employer] [address] [place] [address]. All rights reserved. This information is not intended as a substitute for professional medical care. Always follow yourhealthcare professional's instructions. Additional Information VACCINATE! IT SAVES LIVES! Members of the community who have not yet received the COVID-19 vaccine and would like to receive it can visit one of [facility] vaccine clinics. There are many vaccine clinic locations within the [facility]. For locations and available times, please visit www.[email or web address].[place].gov/. It is important to note that some COVID mobile vaccine clinics are held outdoors and may be canceled in rainy or stormy conditions. To learn more about pediatric vaccinations (ages 5-11), we invite you to visit the [facility] webpage. https://www.[email or web address].org/pages/[email or web address]-Dueny-Wdrqlwsacoz-Wuupxvthef-Bgwsp-Yzm stions.htmlTo learn more about the COVID-19 vaccine, we invite you to visit the CDC website for a list of frequently asked questions. https://www.cdc.gov/coronavirus/2019-ncov/vaccines/faq.html [facility] Patient Portal Access Instructions: Stay connected with your healthcare team and access your personal medical information anytime with the [facility] Patient Portal. If you would like a full copy of your medical records please contact the [facility] Medical Records Department Friday through Friday between 8a.m. and 4:30p.m. Please follow the directions below to access the portal: 1.Access the email account you provided upon registration to the [facility].2.Look for an invitation email from [facility].3.Open the email and access the invitation link: Accept Invitation to [facility]4.Fill in the required umro to create your account. Sign into [email or web address].[email or web address] with your username and password that you [...] you will allow to register on the [facility] Patient Portal for access to your information. You can also access the [facility] Patient Portal on the [employer] [facility]. Simply click on Health Records under HealthData and then click on the [employer] logo. HOW TO SAFELY DISPOSE OF PRESCRIPTION MEDICATIONS Please use one of the following methods to safely dispose of your unused medications. 1.Use a drug disposal kit: the drug disposal pouch allows you to safely discard your old and unuseddrugs. Ask your nurse to give you one when you are discharged.2.Visit a local take-back location: Many local pharmacies and police departments have programs that collect old and unwanted prescriptiondrugs. Call your local pharmacy or go to http://bit.Cardiosolutions/9F2Py7e to find one close to you.3.Make use of household items: Use cat litter or old coffee grounds to dispose medications if other options arenot available. Mix your drugs with these household products, seal them in an airtight container andthrow it into the garbage. Call [facility]: [phone] to be sure your drugs can be [...] drowsiness, such as benzodiazepines, also known as benzos,including diazepam and alprazolam, muscle relaxants or sleep aids. Never sell or share prescriptionopioids. This is illegal. Store opioids in a secure place and out of reach of others (including children, family, friends and visitors). The last page(s) of this document has been signed and retained as a CHART COPY Signatures Patient Education Materials Hypertension, Established Chest Wall Pain, Costochondritis Chest Pain, Uncertain Cause Medication Leaflets My discharge plan and instructions have been reviewed and explained to me and I,ASHLEY RUBIO understand my current condition and have read and understand these discharge instructions. I have received a written copy of the plan/instructions. If I have questions, I am aware that I should contactmy doctor. Patient/Unitizer Signature: Date/Time: Relationship to Patient: Witness Name/Signature: Date/Time: [facility]07-09-2024 Note ORIGINAL EXAMINATION: ONE XRAY VIEW OF THE CHEST 10/28/2023 7:51 am COMPARISON: None. HISTORY: ORDERING SYSTEM PROVIDED HISTORY: Reason for Exam: chest pain FINDINGS: Cardiomediastinal contour is normal. No focal consolidation or pulmonary edema. No pneumothorax or pleural effusion. No acute osseous abnormality. IMPRESSION: No acute radiographic abnormality. Preliminary Report was Dictated by a Resident Interpreted by: Mamadou Moreland MD Preliminary Report By: Duke Toure Electronically signed By Mamadou Moreland MD Dictated Date: 10/28/2023 7:55:42 AM Prelim Date: 10/28/2023 7:56:26 AM Sign Date: 10/28/2023 8:02:17 AM [facility] NoteSinus rhythm Nonspecific intraventricular conduction delay Baseline wander in lead(s) V6 BORDERLINE ECG Electronic Signature: TEGAN SHELLEY 10/28/2023 07:35:50[facility] 03-12-2023 Hospital Discharge instructions Patient Education 06/30/2022 15:08:25 Skin Avulsion [...] will keep the wound clean, make it easierto remove the stitches, and reduce scarring. If [...] becomes wet, blot it dry with a cleantowel. If skin glue was used, don't put [...] some information about medicine: You may use xfwv-wns-uvimrnb medicine such as acetaminophen or ibuprofen to [...] will tell you how long stitches should beleft in. If surgical tape was used, it [...] re-open Bleeding not controlled by direct pressure [phone] [employer] [address] [place] [address]. All rights reserved. This information is not intended as a substitute for professional medical care. Always follow yourhealthcare professional's instructions. Follow Up Care 06/30/2022 14:13:12 With:SRAVAN GARSIA Address: [address] [place] [address] [place] [phone] Business (1) When:Within 1 Week(s) Comments:Follow-up as needed.Daily wound care with dressing changes.Use Tylenol, Advil or Aleve for pain as needed.Watch for signs of infection.Return to the ED if symptoms worsen. [facility] 03-12-2023 Note Discharge Instructions Thank you for allowing [facility] to assist you with your healthcare needs. The following is importantdischarge information regarding your hospital visit. Diagnosis from [...] to the ED if symptoms worsen. Where: [address] [place] [address] [place] [phone] Business (1) Allergies Keflex Immunizations This Visit Given Vaccine Datetetanus/diphth/pertuss (Tdap) adult/adol 06/30/2022 Medications Please ask your primary doctor or pharmacist before taking any other medication not listed, including over the counter drugs, herbal medications, vitamins and or supplements as they may interact withyour home medications. Please take this list to [...] will keep the wound clean, make it easierto remove the stitches, and reduce scarring. If [...] becomes wet, blot it dry with a cleantowel. If skin glue was used, don't put [...] some information about medicine: You may use dutn-ggn-dezjacl medicine such as acetaminophen or ibuprofen to [...] will tell you how long stitches should beleft in. If surgical tape was used, it [...] re-open Bleeding not controlled by direct pressure [id number] [employer]. [address] [place] [address]. All rights reserved. This information is not intended as a substitute for professional medical care. Always follow yourhealthcare professional's instructions. Additional Information VACCINATE! IT SAVES LIVES! Members of the community who have not yet received the COVID-19 vaccine and would like to receive it can visit one of [facility] vaccine clinics. There are many vaccine clinic locations within the [facility]. For locations and available times, please visit [email or web address] It is important to note that some COVID mobile vaccine clinics are held outdoors and may be canceled in rainy or stormy conditions. To learn more about pediatric vaccinations (ages 5-11), we invite you to visit the [facility] webpage. https://www.[email or web address]/[email or web address]-[email or web address]-Fsrffgctnz-Aptlx-Zir stions.htmlTo learn more about the COVID-19 vaccine, we invite you to visit the CDC website for a list of frequently asked questions. https://www.cdc.gov/coronavirus/2019-ncov/vaccines/faq.html [facility] Patient Portal Access Instructions: Stay connected with your healthcare team and access your personal medical information anytime with the [facility] Patient Portal. If you would like a full copy of your medical records please contact the [facility] Medical Records Department Friday through Friday between 8a.m. and 4:30p.m. Please follow the directions below to access the portal: 1.Access the email account you provided upon registration to the [facility].2.Look for an invitation email from [facility].3.Open the email and access the invitation link: Accept Invitation to [facility]4.Fill in the required muro to create your account. Sign into [email or web address] with your username and password that you [...] you will allow to register on the [facility] Patient Portal for access to your information. You can also access the [facility] Patient Portal on the [email or web address]. Simply click on Health Records under [facility] and then click on the [employer] logo. HOW TO SAFELY DISPOSE OF PRESCRIPTION MEDICATIONS Please use one of the following methods to safely dispose of your unused medications. 1.Use a drug disposal kit: the drug disposal pouch allows you to safely discard your old and unuseddrugs. Ask your nurse to give you one when you are discharged.2.Visit a local take-back location: Many local pharmacies and police departments have programs that collect old and unwanted prescriptiondrugs. Call your local pharmacy or go to http://[employer].Cardiosolutions/8T1Sh7s to find one close to you.3.Make use of household items: Use cat litter or old coffee grounds to dispose medications if other options arenot available. Mix your drugs with these household products, seal them in an airtight container andthrow it into the garbage. Call [facility]: [phone] to be sure your drugs can be [...] drowsiness, such as benzodiazepines, also known as benzos,including diazepam and alprazolam, muscle relaxants or sleep aids. Never sell or share prescriptionopioids. This is illegal. Store opioids in a [...] questions, I am aware that I should contactmy doctor. Patient/Unitizer Signature: Date/Time: Relationship to Patient: Witness Name/Signature: [facility] No data available for this section [facility] Evaluation note* Diagnosis Onset Date Resolution Status Cervical radiculopathy at C6 acute Diabetes mellitus acute Morbid obesity with BMI of 45.0-49.9, adult acute Diabetes mellitus acute Hyperlipidemia acute Hypertension acute Hypothyroidism (acquired) ac caren Obesity acute Thyroid cancer acute [facility] Work Phone: Evaluation note* Diagnosis Onset Date Resolution Status Depression acute Diabetes mellitus acute Hyperlipidemia acute Hypertension acute Obesity acute Postoperative primary hypothyroidism acute Thyroid cancer acute Cervical disc disorder at C5-C6 level with radiculopat hy acute Cervical disc disorder at C5-C6 level with radiculopat hy acute [facility] Work Phone: Evaluation note* Diagnosis Onset Date Resolution Status Cervical disc disorder at C5-C6 level with radiculopat hy acute Cervical disc disorder at C5-C6 level with radiculopat hy [facility] Work Phone: Evaluation noteNo assessment information available [facility] Work Phone: [facility] Work Phone[facility] Work Phone: Hospital Discharge instructions No data available for this section [facility] Progress note No data available for this section [facility] Reason for referral (narrative)No reason for referral information availableWBethesda [facility] Work Phone: Chief Complaint and Reason for Visit Chief Complaint neck pain [id number] MAILED RADICULOPATHY (M54.12) . RX HERE Reason for Visit Cervical radiculopat hy at C6 Diabetes mellitus Morbid obesity with BMI of 45.0-49.9, adult Diabetes mellitus Hyperlipidemia Hypertension Hypothyroidism (acquired) Obesity Thyroid cancer Chief Complaint neck pain [id number] MAILED RIGHT LEG SWELLING RADICULOPATHY (M54.12) . RX HERE Reason for Visit Cervical radiculopat hy at C6 Diabetes mellitus Morbid obesity with BMI of 45.0-49.9, adult Diabetes mellitus Hyperlipidemia Hypertension Hypothyroidism (acquired) Obesity Thyroid cancer Chief Complaint 1 M FU cervical spine xray Cervical spine POSSIBLE DVT Reason for Visit Depression Diabetes mellitus Hyperlipidemia Hypertension Obesity Postoperative primary hypothyroidism Thyroid cancer Cervical disc disorder at C5-C6 level with radiculopathy Cervical disc disorder at C5-C6 level with radiculopathy Chief Complaint cervical spine xray Cervical spine POSSIBLE DVT Reason for Visit Cervical disc disord er at C5-C6 level with radiculopathy Cervical disc disorder at C5-C6 level with radiculopathy Chief Complaint EORDER Chief Complaint Admit Date 8 M FU, NS 07/05August 03, 2024 1:3 6pm E-ORDERS August 12, 2024 9:0 2am Reason for Visit Admit Date Diabetes mellitus August 03, 2024 1:3 6pm Hypertension August 03, 2024 1:3 6pm Obesity August 03, 2024 1:3 6pm Postoperative primary hypothyroidism Apr 2024 1:36pm Thyroid cancer August 03, 2024 1:3 6pm Chief Complaint Admit Date 8 M FU, NS 07/05August 03, 2024 1:3 6pm E-ORDERS August 12, 2024 9:0 2am EORDER September 20, 2024 8:13a m BP Check September 23, 2024 7:51a m Chief Complaint Admit Date 8 M FU, NS 07/05August 03, 2024 1:3 6pm E-ORDERS August 12, 2024 9:0 2am EORDER September 20, 2024 8:13a m BP Check September 23, 2024 7:51a m 3 M FU November 09, 2024 1:46 pm Reason for Visit Admit Date Diabetes mellitus August 03, 2024 1:3 6pm Hypertension August 03, 2024 1:3 6pm Obesity August 03, 2024 1:3 6pm Postoperative primary hypothyroidism Apr 2024 1:36pm Thyroid cancer August 03, 2024 1:3 6pm Uncontrolled hypertension September 23, 2024 7:51am Diabetes mellitus November 09, 2024 1:46 pm Hyperlipidemia November 09, 2024 1:46 pm Hypertension November 09, 2024 1:46 pm Hypogonadism in male November 09, 2024 1:4 6pm Postoperative primary hypothyroidism [place] 2024 1:46pm Thyroid cancer November 09, 2024 1:46 pm Advance Directives No Advanced Directives Records Found Advance Directive Response Recorded Date/ Time Living Will No December 11 3:54pm Power of Marketing Operations Specialist No December 11 022 3:54pm Advance Directive Response Recorded Date/ Time Living Will No June 24, 2022 3:48pm Power of Marketing Operations Specialist No June 24 3:48pm Summary Purpose Family History No Family History Records Found Additional Source Comments Goals (unrecognized section and content) Goals may be documented in a n alternate sectionGoals may be documented in an alternate section No data available for this section No data available for this sectionGoals may be documented in an alternate sectionGoals may be documented in an alternate section No data available for this sectionGoals may be documented in an alternate section No data available for this sectionGoals may be documented in an alternate sectionGoals may be documented in an alternate sectionGoals may be documented in an alternate section No data available for this sectionGoals may be documented in an alternate section Care Team (unrecognized sect ion and content) Team Status: Active Member Role Status Dates Dr. Sravan Garsia MD Primary Care Provider Active Team Status: Inactive Member Role Status Dates Dr. Sravan Garsia MD Primary Care Pro vider, Attending Provider, Referring Provider Active Team Status: Inactive Member Role Status Dates Dr. Sravan Garsia MD Primary Care Provider Active Start: August 03, 2024 End: August 03, 2024 Dr. Sravan Garsia MD Referring Provider Active Start: August 03, 2024 End: August 03, 2024 Dr. Katie Montelongo MD Attending Provider Active Sta rt: August 03, 2024 End: August 03, 2024 Team Status: Inactive Member Role Status Dates Dr. Sravan Garsia MD Primary Care Provider Active Start: August 12, 2024 End: August 12, 2024 Dr. Katie Montelongo MD Attending Provider Active Sta rt: August 12, 2024 End: August 12, 2024 Dr. Katie Montelongo MD Referring Provider Active Sta rt: August 12, 2024 End: August 12, 2024 Team Status: Active Member Role Status Dates Dr. Sravan Garsia MD Primary Care Provider Active Start: September 20, 2024 Dr. Katie Montelongo MD Attending Provider Active Sta rt: September 20, 2024 Dr. Katie Montelongo MD Referring Provider Active Sta rt: September 20, 2024 Team Status: Inactive Member Role Status Dates Dr. Sravan Garsia MD Primary Care Provider Active Start: September 23, 2024 End: September 23, 2024 Dr. Sravan Garsia MD Referring Provider Active Start: September 23, 2024 End: September 23, 2024 Dr. Katie Montelongo MD Attending Provider Active Sta rt: September 23, 2024 End: September 23, 2024 Team Status: Inactive Member Role Status Dates Dr. Sravan Garsia MD Primary Care Provider Active Start: September 20, 2024 End: September 20, 2024 Dr. Katie Montelongo MD Attending Provider Active Sta rt: September 20, 2024 End: September 20, 2024 Dr. Katie Montelongo MD Referring Provider Active Sta rt: September 20, 2024 End: September 20, 2024 Team Status: Active Member Role/Relationship Status Dates Dr. Sravan Garsia MD Primary Care Provider Active Team Status: Inactive Member Role/Relationship Status Dates Dr. Sravan Garsia MD Primary Care Provider Active Start: August 03, 2024 End: August 03, 2024 Dr. Sravan Garsia MD Referring Provider Active Start: August 03, 2024 End: August 03, 2024 Dr. Katie Montelongo MD Attending Provider Active Sta rt: August 03, 2024 End: August 03, 2024 Team Status: Inactive Member Role/Relationship Status Dates Dr. Sravan Garsia MD Primary Care Provider Active Start: August 12, 2024 End: August 12, 2024 Dr. Katie Montelongo MD Attending Provider Active Sta rt: August 12, 2024 End: August 12, 2024 Dr. Katie Montelongo MD Referring Provider Active Sta rt: August 12, 2024 End: August 12, 2024 Team Status: Inactive Member Role/Relationship Status Dates Dr. Sravan Garsia MD Primary Care Provider Active Start: September 20, 2024 End: September 20, 2024 Dr. Katie Montelongo MD Attending Provider Active Sta rt: September 20, 2024 End: September 20, 2024 Dr. Katie Montelongo MD Referring Provider Active Sta rt: September 20, 2024 End: September 20, 2024 Team Status: Inactive Member Role/Relationship Status Dates Dr. Sravan Garsia MD Primary Care Provider Active Start: September 23, 2024 End: September 23, 2024 Dr. Sravan Garsia MD Referring Provider Active Start: September 23, 2024 End: September 23, 2024 Dr. Katie Montelongo MD Attending Provider Active Sta rt: September 23, 2024 End: September 23, 2024 Team Status: Inactive Member Role/Relationship Status Dates Dr. Sravan Garsia MD Primary Care Provider Active Start: November 09, 2024 End: November 09, 2024 Dr. Sravan Garsia MD Referring Provider Active Start: November 09, 2024 End: November 09, 2024 Dr. Katie Montelongo MD Attending Provider Active Sta rt: November 09, 2024 End: November 09, 2024 Care Team (unrecognized sect ion and content) Care Team Personnel Name: SRAVAN GARSIA MD Member Role: Primary Care Physician Address: Address: [address] [id number]- Care Team Personnel Name: SRAVAN GARSIA MD Member Role: Primary Care Physician Address: Address: [address] [place] [id number]- Name: Virginia Jones RN Position: AO RN Member Role: ED RN Name: JOHNNY GARCIA MD Position: ED Physician Member Role: ED Physician Address: Address: [address] [facility] [address] [place] [address]- (unrecognized sect ion and content) No Status Records FoundNo Status Records FoundNo Status Records Found INFORMATION SOURCE (unrecogn ized section and content) DATE CREATED AUTHOR 11/09/2023 [facility] ([place]) DATE CREATED AUTHOR AUTHOR'S ORGANIZ ATION 10/17/2024 [facility] DATE CREATED AUTHOR AUTHOR'S ORGANIZ ATION 01/08/2025 [facility] FOR RECORDS PERTAINING TO PATIENTS WHO ARE [...] BE BASED ON THE PRIMARY CLINICAL RECORDS. tabulate [facility]. provides no warranty or guarantee of the accuracy or completeness of information in this document.
--- OUTSIDE RECORDS SUMMARY | 2025-01-13 08:13 | XMS RPT_ITS | CCD ---
Author Organization [facility] CliniSyal Care Team Providers Care Technical Engineer Name Role Phone Dr. Sravan Garsia Primary Care Provider Dr. Sravan Garsia Attending Provider [phone] Dr. Sravan Garsia Referring Provider Dr. Katie Montelongo Attending Provider Dr. Bin Gunn Attending Provider Dr. Katie Montelongo Referring Provider SUN LUCERO, SRAVAN Primary Care Physician ([facility])[phone] Dr. Sravan Garsia Primary Care Provider [...] Attending Unavailable Sun, Sravan Referring Unavailable Sun, Sravna Primary Care Unavailable Reginald, Katie Attending Unavailable [...] sources) Cephalexin; Translations: [cephalexin] Drug Allergy 07-17-2021 [facility] (1 source) Cephalexin Drug Allergy 11-09-2024 [facility] Repository Medications Current Medications Medication Drug [...] Freeon 12-25-2024 TESTOSTER,FREE 11.76 ng/dL Normal 5.00-21.00 [facility] Comment on above: Order Comment: Jarred n for Laboratory Test xN Performed By: #### L 500.4050, L3300.6820, L501.9520, L3100.5310 ####[facility] [address] [place], [place], [address] TESTOSTER,TOTAL 344 ng/dL Normal 264-916 [facility] Comment on above: Order Comment: Jarred n for Laboratory Test xN Result Comment: Adul t male reference interval is based on a population of healthy nonobese males (BMI <30) between 19 and 39 years old. peter Kate.al. JCEM 2017,102;5436-9329. PMID: [id number]. Performed By: #### L 500.4050, L3300.6820, L501.9520, L3100.5310 ####[facility] [address] [place], [address] TESTOSTERONE,%F 3.42 Normal 1.50-4.20 [facility] Comment on above: Order Comment: Reaso n for Laboratory Test xN Performed By: #### L 500.4050, L3300.6820, L501.9520, L3100.5310 ####[facility] [address] [place], [address] Thyroglobulin w/Anti-TG ABon 12-25-2024 Anti-TG AB < 1.0 Normal 0.0-0.9 [facility] Comment on above: Order Comment: Reaso n for Laboratory Test x Result Comment: Thyr oglobulin Antibody measured by [employer] Methodology It should be noted that the presence of thyroglobulin antibodies may not be pathogenic nor diagnostic, especially at very low levels. The assay casting associate has found that four percent of individuals without evidence of thyroid disease or autoimmunity will have positive TgAb levels up to 4 IU/mL. Performed By: #### L 500.4050, L3300.6820, L501.9520, L3100.5310 ####[facility] [address] [place], [address] THYROGLOB QUANT 0.1 ng/mL Low 1.4-29.2 [facility] Comment on above: Order Comment: Reaso [...] is 0.1 ng/mL Thyroglobulin measured by [employer] Immunometric Assay Performed at: [facility] [id number] Nonprofit Financial Controller: Jose Riley PhD, Phone: [phone] Performed at: [facility] [id number] Nonprofit Financial Controller: Jeannie Duarte MD, Phone: [phone] Performed By: #### L 500.4050, L3300.6820, L501.9520, L3100.5310 ####[facility] [address] [place], [address] Comprehensive Metabolic Prof ilon 12-22-2024 Albumin [Mass/Vol] 4.5 g/dL Normal 3.5-5.[address] [facility] Comment on above: Performed By: #### L 500.4050, L3300.6820, L501.9520, L3100.5310 #### [facility] [address] [place], [address] Albumin/Globulin [Mass ratio] 1.3 {ratio} Normal 0.9-2.4 [facility] Comment on above: Performed By: #### L 500.4050, L3300.6820, L501.9520, L3100.5310 #### [facility] [address] [place], [address] ALK PHOS 56 U/L Normal 40-129 [facility] Comment on above: Performed By: #### L 500.4050, L3300.6820, L501.9520, L3100.5310 #### [facility] [address] [place], [address] ALT [Catalytic activity/Vol] 28 U/L Normal <=46 [facility] Comment on above: Performed By: #### L 500.4050, L3300.6820, L501.9520, L3100.5310 #### [facility] [address] [place], [address] AST [Catalytic activity/Vol] 42 U/L High <=37 [facility] Comment on above: Performed By: #### L 500.4050, L3300.6820, L501.9520, L3100.5310 #### [facility] [address] [place], [address] Bilirubin [Mass/Vol] 0.90 mg/dL Normal 0.00-1.[address] [facility] Comment on above: Performed By: #### L 500.4050, L3300.6820, L501.9520, L3100.5310 #### [facility] [address] [place], [address] BUN/CRE 12.7 RATIO Normal 10-20 [facility] Comment on above: Performed By: #### L 500.4050, L3300.6820, L501.9520, L3100.5310 #### [facility] [address] [place], [address] Calcium [Mass/Vol] 9.3 mg/dL Normal 7.6-11.[address] [facility] Comment on above: Performed By: #### L 500.4050, L3300.6820, L501.9520, L3100.5310 #### [facility] [address] [place], [address] Chloride [Moles/Vol] 97 mmol/L Low 98-[address] [facility] Comment on above: Performed By: #### L 500.4050, L3300.6820, L501.9520, L3100.5310 #### [facility] [address] [place], [address] CO2 [Moles/Vol] 24.7 mmol/L Normal 21.0-32.0 [facility] Comment on above: Performed By: #### L 500.4050, L3300.6820, L501.9520, L3100.5310 #### [facility] [address] [place], [address] Creatinine [Mass/Vol] 1.06 mg/dL Normal 0.70-1.20 [facility] Comment on above: Performed By: #### L 500.4050, L3300.6820, L501.9520, L3100.5310 #### [facility] [address] [place], [address] GAP 14 Normal 5-15 [facility] Comment on above: Performed By: #### L 500.4050, L3300.6820, L501.9520, L3100.5310 #### [facility] [address] [place], [address] GFR/1.73 sq M.predicted among non-blacks MDRD (S/P/Bld) [Vol rate/Area] 85 mL/min/{1.73_m2} Normal >60 [facility] Comment on above: Result Comment: mL/m in/1.73m2 CKD-EPI Creatinine Equation (2020) Performed By: #### L 500.4050, L3300.6820, L501.9520, L3100.5310 #### [facility] [address] [place], [address] Globulin (S) [Mass/Vol] 3.3 g/dL Normal 2.2-4.2 [facility] Comment on above: Performed By: #### L 500.4050, L3300.6820, L501.9520, L3100.5310 #### [facility] [address] [place], [address] Glucose [Mass/Vol] 95 mg/dL Normal 70-[address] [facility] Comment on above: Performed By: #### L 500.4050, L3300.6820, L501.9520, L3100.5310 #### [facility] [address] [place], [address] Potassium [Moles/Vol] 4.1 mmol/L Normal 3.3-5.1 [facility] Comment on above: Performed By: #### L 500.4050, L3300.6820, L501.9520, L3100.5310 #### [facility] [address] [place], [address] Sodium [Moles/Vol] 137 mmol/L Normal 133-[address] [facility] Comment on above: Performed By: #### L 500.4050, L3300.6820, L501.9520, L3100.5310 #### [facility] [address] [place], [address] T PROT 7.8 g/dL Normal 5.9-8.4 [facility] Comment on above: Performed By: #### L 500.4050, L3300.6820, L501.9520, L3100.5310 #### [facility] [address] [place], [address] Urea nitrogen [Mass/Vol] 14 mg/dL Normal 4-19 [facility] Comment on above: Performed By: #### L 500.4050, L3300.6820, L501.9520, L3100.5310 #### [facility] [address] [place], [address] Thyroid Stim Hormone (TSH)on 12-22-2024 TSH 22.600 uIU/mL High 0.300-4.[address] [facility] Comment on above: Performed By: #### L 500.4050, L3300.6820, L501.9520, L3100.5310 #### [facility] [address] [place], [address] Endocrinology Visit Reporton 11-09-2024 Endocrinology Visit Report [facility] [facility] [place], [place] [address] OFFICE VISIT Date of Service: 11/09/24 MR#: [id number] Acct: [id number] Name: ASHLEY RUBIO Rep #: [id number] : 1975 Provider: Corey Mckee Age/Sex: 48/M Location: [facility] Status: Signed Intake Vital Signs 08/03/24 13:39 [...] intact bilat (more content not included)... Normal [facility] Microalb:Creat Ratio,Random URon 10-08-2024 MALB:CREAT 28.7 mg/g CRE Normal [facility] Comment on above: Result Comment: AMENDED REPORT 10/08/24 3661 MALB:CREAT previously reported as: 287.0 mg/g CRE Performed By: #### L 502.0250, L506.0400, L500.4050, L3300.6820, L501.9520, L500.4100 #### [facility] [address] [place], [address] Office Visit Reporton 2024 Office Visit Report [facility] [address] [facility] [place] [address] OFFICE VISIT Date of Service: 09/23/24 MR#: [id number] Acct: [id number] Patient: ASHLEY RUBIO Rep #: [id number] : 1975 Provider: Katie Montelongo MD Age/Sex: 48/M Location: [facility] Status: Signed Intake Vital Signs 08/03/24 13:39 [...] Yusraigner Signature: Date (if applicable) CC: Normal [facility] Anion gap in Serum or Plasma Ordered By: Katie Montelongo on 09-20-2024 Anion gap [Moles/Vol] 18 mmol/L High 5-15 [facility] BUN/creatinine ratioOrdered By: Katie Montelongo on 09-20-2024 Urea nitrogen/Creatinine [Mass ratio] 12.2 mg/mg 10-20 [facility] Bilirubin, totalOrdered By: Katie Montelongo on 09-20-2024 Bilirubin [Mass/Vol] 0.79 mg/dL 0.00-1.[address] [facility] Carbon dioxide, total [Moles /volume] in Central venous bloodOrdered By: Katie Montelongo on 09-20-2024 CO2 [Moles/Vol] 23.1 mmol/L 21.0-32.0 [facility] Chloride assayOrdered By: James Montelongo on 09-20-2024 Chloride [Moles/Vol] 88 mmol/L Low 98-[address] [facility] Comprehensive Metabolic Prof ilon 09-20-2024 Albumin [Mass/Vol] 4.3 g/dL Normal 3.5-5.[address] [facility] Comment on above: Performed By: #### L 506.0400, L500.4050, L501.9520 ####[facility] [address] [place], [address] Albumin/Globulin [Mass ratio] 1.3 {ratio} Normal 0.9-2.4 [facility] Comment on above: Performed By: #### L 506.0400, L500.4050, L501.9520 ####[facility] [address] [place], [address] ALK PHOS 49 U/L Normal 40-129 [facility] Comment on above: Performed By: #### L 506.0400, L500.4050, L501.9520 ####[facility] [address] [place], [address] ALT [Catalytic activity/Vol] 20 U/L Normal <=46 [facility] Comment on above: Performed By: #### L 506.0400, L500.4050, L501.9520 ####[facility] [address] [place], [address] AST [Catalytic activity/Vol] 42 U/L High <=37 [facility] Comment on above: Performed By: #### L 506.0400, L500.4050, L501.9520 ####[facility] [address] [place], [address] Bilirubin [Mass/Vol] 0.79 mg/dL Normal 0.00-1.[address] [facility] Comment on above: Performed By: #### L 506.0400, L500.4050, L501.9520 ####[facility] [address] [place], [address] BUN/CRE 12.2 RATIO Normal 10-20 [facility] Comment on above: Performed By: #### L 506.0400, L500.4050, L501.9520 ####[facility] [address] [place], [address] Calcium [Mass/Vol] 9.3 mg/dL Normal 7.6-11.[address] [facility] Comment on above: Performed By: #### L 506.0400, L500.4050, L501.9520 ####[facility] [address] [place], [address] Chloride [Moles/Vol] 88 mmol/L Low 98-[address] [facility] Comment on above: Performed By: #### L 506.0400, L500.4050, L501.9520 ####[facility] [address] [place], [address] CO2 [Moles/Vol] 23.1 mmol/L Normal 21.0-32.0 [facility] Comment on above: Performed By: #### L 506.0400, L500.4050, L501.9520 ####[facility] [address] [place], [address] Creatinine [Mass/Vol] 1.10 mg/dL Normal 0.70-1.20 [facility] Comment on above: Performed By: #### L 506.0400, L500.4050, L501.9520 ####[facility] [address] [place], [address] GAP 18 High 5-15 [facility] Comment on above: Performed By: #### L 506.0400, L500.4050, L501.9520 ####[facility] [address] [place], [address] GFR/1.73 sq M.predicted among non-blacks MDRD (S/P/Bld) [Vol rate/Area] 82 mL/min/{1.73_m2} Normal >60 [facility] Comment on above: Result Comment: mL/m in/1.73m2 CKD-EPI Creatinine Equation (2020) Performed By: #### L 506.0400, L500.4050, L501.9520 ####[facility] [address] [place], [address] Globulin (S) [Mass/Vol] 3.4 g/dL Normal 2.2-4.2 [facility] Comment on above: Performed By: #### L 506.0400, L500.4050, L501.9520 ####[facility] [address] [place], [address] Glucose [Mass/Vol] 78 mg/dL Normal 70-[address] [facility] Comment on above: Performed By: #### L 506.0400, L500.4050, L501.9520 ####[facility] [address] [place], [address] Potassium [Moles/Vol] 3.7 mmol/L Normal 3.3-5.1 [facility] Comment on above: Performed By: #### L 506.0400, L500.4050, L501.9520 ####[facility] [address] [place], [address] Sodium [Moles/Vol] 129 mmol/L Low 133-[address] [facility] Comment on above: Performed By: #### L 506.0400, L500.4050, L501.9520 ####[facility] [address] [place], [address] T PROT 7.7 g/dL Normal 5.9-8.4 [facility] Comment on above: Performed By: #### L 506.0400, L500.4050, L501.9520 ####[facility] [address] [place], [address] Urea nitrogen [Mass/Vol] 13 mg/dL Normal 4-19 [facility] Comment on above: Performed By: #### L 506.0400, L500.4050, L501.9520 ####[facility] [address] [place], [address] Glomerular filtration rate ( GFR) estimation/1.73 sq m using serum, plasma, or whole bOrdered By: Katie Montelongo on 09-20-2024 GFR/1.73 sq M.predicted among non-blacks MDRD (S/P/Bld) [Vol rate/Area] 82 mL/min/{1.73_m2} >60 [facility] Comment on above: mL/min/1.73m2 CKD-EP I Creatinine Equation (2020) Laboratory - Chemistry and C hemistry - challengeOrdered By: Katie Montelongo on 09-20-2024 AST [Catalytic activity/Vol] 42 U/L High <38 [facility] Potassium measurement (mass/ volume)Ordered By: Katie Montelongo on 09-20-2024 Potassium (Unsp spec) [Mass/Vol] 3.7 mmol/L 3.3-5.1 [facility] Serum creatinine measurement (mass/volume)Ordered By: Katie Montelongo on 09-20-2024 Creatinine [Mass/Vol] 1.10 mg/dL 0.70-1.20 [facility] Serum globulin measurementOr dered By: Katie Montelongo on 09-20-2024 Globulin (S) [Mass/Vol] 3.4 g/dL 2.2-4.2 [facility] Serum glucose measurement (m ass/volume)Ordered By: Katie Montelongo on 09-20-2024 Glucose [Mass/Vol] 78 mg/dL 70-[address] [facility] Serum or plasma alanine gates otransferase (ALT) measurementOrdered By: Katie Montelongo on 09-20-2024 ALT [Catalytic activity/Vol] 20 U/L <47 [facility] Serum or plasma albumin kathleen urement (mass/volume)Ordered By: Katie Montelongo on 09-20-2024 Albumin [Mass/Vol] 4.3 g/dL 3.5-5.[address] [facility] Serum or plasma albumin/glob ulin mass ratioOrdered By: Katie Montelongo on 09-20-2024 Albumin/Globulin [Mass ratio] 1.3 {ratio} 0.9-2.4 [facility] Serum or plasma alkaline negro sphatase measurementOrdered By: Katie Montelongo on 09-20-2024 ALP [Catalytic activity/Vol] 49 U/L 40-129 [facility] Serum or plasma calcium kathleen urement (mass/volume)Ordered By: Katie Montelongo on 09-20-2024 Calcium [Mass/Vol] 9.3 mg/dL 7.6-11.[address] [facility] Serum or plasma urea nitroge n measurement (mass/volume)Ordered By: Katie Montelongo on 09-20-2024 Urea nitrogen [Mass/Vol] 13 mg/dL 4-19 [facility] Sodium levelOrdered By: Katie Montelongo on 09-20-2024 Sodium [Moles/Vol] 129 mmol/L Low 133-[address] [facility] T4 Free Directon 09-20-2024 T4 FREE DIRECT 1.40 ng/dL Normal 0.76-1.46 [facility] Comment on above: Performed By: #### L 506.0400, L500.4050, L501.9520 ####[facility] [address] [place], [address] T4 freeOrdered By: Katie Montelongo on 09-20-2024 Free T4 [Mass/Vol] 1.40 ng/dL 0.76-1.[address] [facility] TSH DL <= 0.005 mIU/L QnOrde red By: Katie Montelongo on 09-20-2024 TSH Qn 4.430 uIU/mL High 0.300-4.[address] [facility] Thyroid Stim Hormone (TSH)on 09-20-2024 TSH 4.430 uIU/mL High 0.300-4.[address] [facility] Comment on above: Performed By: #### L 506.0400, L500.4050, L501.9520 ####[facility] [address] [place], [place], [address] Total proteinOrdered By: Kai Montelongo on 09-20-2024 Protein [Mass/Vol] 7.7 g/dL 5.9-8.[address] [facility] Thyroglobulin w/Anti-TG ABon 08-13-2024 Anti-TG AB < 1.0 Normal 0.0-0.9 [facility] Comment on above: Order Comment: Reaso n for Laboratory Test x Result Comment: Thyr oglobulin Antibody measured by [employer] Method[employer] It should be noted that the presence of thyroglobulin antibodies may not be pathogenic nor diagnostic, especially at very low levels. The assay casting associate has found that four percent of individuals without evidence of thyroid disease or autoimmunity will have positive TgAb levels up to 4 IU/mL. Performed By: #### L 502.0250, L506.0400, L500.4050, L3300.6820, L501.9520, L500.4100 #### [facility] [address] [place], [address] THYROGLOB QUANT < 0.1 Low 1.4-29.2 [facility] Comment on above: Order Comment: Reaso [...] is 0.1 ng/mL Thyroglobulin measured by [employer] Immunometric Assay Performed at: [facility] [id number] Nonprofit Financial Controller: Jose Riley PhD, Phone: [phone] Performed By: #### L 502.0250, L506.0400, L500.4050, L3300.6820, L501.9520, L500.4100 #### [facility] [address] [place], [address] Albumin DL <= 20 mg/L (U) [M ass/Vol]Ordered By: Katie Montelongo on 08-12-2024 Urine Random Microalbumin 25.2 mg/L NO RANGE EST. [facility] Anion gap in Serum or Plasma Ordered By: Katie Montelongo on 08-12-2024 Anion gap [Moles/Vol] 16 mmol/L High 5-15 [facility] BUN/creatinine ratioOrdered By: aKtie Montelongo on 08-12-2024 Urea nitrogen/Creatinine [Mass ratio] 11.1 mg/mg 10-20 [facility] Bilirubin, totalOrdered By: Katie Montelongo on 08-12-2024 Bilirubin [Mass/Vol] 0.80 mg/dL 0.00-1.[address] [facility] Calculated very low density lipoprotein (VLDL) cholesterol measurementOrdered By: Katie Montelongo on 08-12-2024 Calculated very low density lipoprotein (VLDL) cholesterol measurement 32 mg/dL - [facility] VLDL Cholesterol 32 mg/dL -40 [facility] Carbon dioxide, total [Moles /volume] in Central venous bloodOrdered By: Katie Montelongo on 08-12-2024 CO2 [Moles/Vol] 22.1 mmol/L 21.0-32.0 [facility] Chloride assayOrdered By: James Montelongo on 08-12-2024 Chloride [Moles/Vol] 95 mmol/L Low 98-[address] [facility] Comprehensive Metabolic Prof ilon 08-12-2024 Albumin [Mass/Vol] 4.3 g/dL Normal 3.5-5.[address] [facility] Comment on above: Performed By: #### L 502.0250, L506.0400, L500.4050, L3300.6820, L501.9520, L500.4100 #### [facility] [address] [place], [address] Albumin/Globulin [Mass ratio] 1.2 {ratio} Normal 0.9-2.4 [facility] Comment on above: Performed By: #### L 502.0250, L506.0400, L500.4050, L3300.6820, L501.9520, L500.4100 #### [facility] [address] [place], [address] ALK PHOS 59 U/L Normal 40-129 [facility] Comment on above: Performed By: #### L 502.0250, L506.0400, L500.4050, L3300.6820, L501.9520, L500.4100 #### [facility] [address] [place], [address] ALT [Catalytic activity/Vol] 180 U/L High <=46 [facility] Comment on above: Performed By: #### L 502.0250, L506.0400, L500.4050, L3300.6820, L501.9520, L500.4100 #### [facility] [address] [place], [address] AST [Catalytic activity/Vol] 65 U/L High <=37 [facility] Comment on above: Performed By: #### L 502.0250, L506.0400, L500.4050, L3300.6820, L501.9520, L500.4100 #### [facility] [address] [place], [address] Bilirubin [Mass/Vol] 0.80 mg/dL Normal 0.00-1.[address] [facility] Comment on above: Performed By: #### L 502.0250, L506.0400, L500.4050, L3300.6820, L501.9520, L500.4100 #### [facility] [address] [place], [address] BUN/CRE 11.1 RATIO Normal 10-20 [facility] Comment on above: Performed By: #### L 502.0250, L506.0400, L500.4050, L3300.6820, L501.9520, L500.4100 #### [facility] [address] [place], [address] Calcium [Mass/Vol] 9.5 mg/dL Normal 7.6-11.[address] [facility] Comment on above: Performed By: #### L 502.0250, L506.0400, L500.4050, L3300.6820, L501.9520, L500.4100 #### [facility] [address] [place], [address] Chloride [Moles/Vol] 95 mmol/L Low 98-[address] [facility] Comment on above: Performed By: #### L 502.0250, L506.0400, L500.4050, L3300.6820, L501.9520, L500.4100 #### [facility] [address] [place], [address] CO2 [Moles/Vol] 22.1 mmol/L Normal 21.0-32.0 [facility] Comment on above: Performed By: #### L 502.0250, L506.0400, L500.4050, L3300.6820, L501.9520, L500.4100 #### [facility] [address] [place], [address] Creatinine [Mass/Vol] 0.94 mg/dL Normal 0.70-1.20 [facility] Comment on above: Performed By: #### L 502.0250, L506.0400, L500.4050, L3300.6820, L501.9520, L500.4100 #### [facility] [address] [place], [address] GAP 16 High 5-15 [facility] Comment on above: Performed By: #### L 502.0250, L506.0400, L500.4050, L3300.6820, L501.9520, L500.4100 #### [facility] [address] [place], [address] GFR/1.73 sq M.predicted among non-blacks MDRD (S/P/Bld) [Vol rate/Area] 99 mL/min/{1.73_m2} Normal >60 [facility] Comment on above: Result Comment: mL/m in/1.73m2 CKD-EPI Creatinine Equation (2020) Performed By: #### L 502.0250, L506.0400, L500.4050, L3300.6820, L501.9520, L500.4100 #### [facility] [address] [place], [address] Globulin (S) [Mass/Vol] 3.5 g/dL Normal 2.2-4.2 [facility] Comment on above: Performed By: #### L 502.0250, L506.0400, L500.4050, L3300.6820, L501.9520, L500.4100 #### [facility] [address] [place], [address] Glucose [Mass/Vol] 97 mg/dL Normal 70-[address] [facility] Comment on above: Performed By: #### L 502.0250, L506.0400, L500.4050, L3300.6820, L501.9520, L500.4100 #### [facility] [address] [place], [address] Potassium [Moles/Vol] 4.0 mmol/L Normal 3.3-5.1 [facility] Comment on above: Performed By: #### L 502.0250, L506.0400, L500.4050, L3300.6820, L501.9520, L500.4100 #### [facility] [address] [place], [address] Sodium [Moles/Vol] 133 mmol/L Normal 133-[address] [facility] Comment on above: Performed By: #### L 502.0250, L506.0400, L500.4050, L3300.6820, L501.9520, L500.4100 #### [facility] [address] [place], [address] T PROT 7.8 g/dL Normal 5.9-8.4 [facility] Comment on above: Performed By: #### L 502.0250, L506.0400, L500.4050, L3300.6820, L501.9520, L500.4100 #### [facility] [address] [place], [address] Urea nitrogen [Mass/Vol] 10 mg/dL Normal 4-19 [facility] Comment on above: Performed By: #### L 502.0250, L506.0400, L500.4050, L3300.6820, L501.9520, L500.4100 #### [facility] [address] [place], [address] Creatinine Unsp time (U) [Ma ss/Vol]Ordered By: Katie Montelongo on 08-12-2024 Creatinine (U) [Mass/Vol] 87.80 mg/dL 39.00-259. 00 [facility] GFR/1.73 sq M.predicted estela g non-blacks MDRD (S/P/Bld) [Vol rate/Area]Ordered By: Katie Montelongo on 08-12-2024 Estimated GFR (MDRD) Non-Af Amer [address] [facility] Comment on above: mL/min/1.73m2 CKD-EP I Creatinine Equation (2020) Glomerular filtration rate ( GFR) estimation/1.73 sq m using serum, plasma, or whole bOrdered By: Katie Montelongo on 08-12-2024 GFR/1.73 sq M.predicted among non-blacks MDRD (S/P/Bld) [Vol rate/Area] 99 mL/min/{1.73_m2} >60 [facility] Comment on above: mL/min/1.73m2 CKD-EP I Creatinine Equation (2020) LDL calc ser/plasOrdered By: Katie Montelongo on 08-12-2024 Cholesterol in LDL [Mass/Vol] 80 mg/dL [facility] Comment on above: Eniooydaqq=153-273 m g/dL & Higher Kiyk=025 mg/dL or greater LDL Cholesterol, Calculated 80 mg/dL [facility] Comment on above: Bfewhjlwbf=610-837 m g/dL & Higher Smtb=290 mg/dL or greater Laboratory - Chemistry and C hemistry - challengeOrdered By: Katie Montelongo on 08-12-2024 AST [Catalytic activity/Vol] 65 U/L High <38 [facility] Lipid Profileon 08-12-2024 CHOL:HDL 3.[address] [facility] Comment on above: Performed By: #### L 502.0250, L506.0400, L500.4050, L3300.6820, L501.9520, L500.4100 #### [facility] [address] [place], [address] Cholesterol [Mass/Vol] 168 mg/dL Normal <=200 [facility] Comment on above: Result Comment: Chol esterol level, Desirable <200 mg/dL Borderline high cholesterol 200-239 mg/dL High cholesterol >=240 mg/dL Recommendations of the NCEP Adult Treatment Panel for the following risk-cutoff thresholds for the [place] population. Performed By: #### L 502.0250, L506.0400, L500.4050, L3300.6820, L501.9520, L500.4100 #### [facility] [address] [place], [address] Cholesterol in HDL [Mass/Vol] 56 mg/dL Normal [facility] Comment on above: Result Comment: Maria Dolores onal Cholesterol Education Program (NCEP) guidelines: <40 mg/dL: Low HDL-cholesterol (major risk factor for CHD) >= 60 mg/dL: High HDL-cholesterol (negative risk factor for CHD) HDL-cholesterol is affected by a number of factors, e.g. smoking, exercise, hormones, sex and age. Performed By: #### L 502.0250, L506.0400, L500.4050, L3300.6820, L501.9520, L500.4100 #### [facility] [address] [place], [address] Cholesterol in LDL [Mass/Vol] 80 mg/dL Normal [facility] Comment on above: Result Comment: Bord mgeajz=178-562 mg/dL Higher Gefe=842 mg/dL or greater Performed By: #### L 502.0250, L506.0400, L500.4050, L3300.6820, L501.9520, L500.4100 #### [facility] [address] [place], [address] Cholesterol in VLDL [Mass/Vol] 32 mg/dL Normal 5-40 [facility] Comment on above: Performed By: #### L 502.0250, L506.0400, L500.4050, L3300.6820, L501.9520, L500.4100 #### [facility] [address] [place], [address] Triglyceride [Mass/Vol] 160 mg/dL Normal [facility] Comment on above: Result Comment: The drugs N-Acetylcysteine and Metamizole may falsely depress this assay. Normal range: <150 mg/dL Borderline High: 150-199 mg/dL High: 200-499 mg/dL Very High: >500 mg/dL Performed By: #### L 502.0250, L506.0400, L500.4050, L3300.6820, L501.9520, L500.4100 #### [facility] [address] [place], [place], [id number] Microalbumin/creat ratio urO rdered By: Katie Montelongo on 08-12-2024 Urine Microalbumin/Creatin ine Ratio 287.0 mg/g CRE [facility] Potassium (Unsp spec) [Mass/ Vol]Ordered By: Katie Montelongo on 08-12-2024 Potassium [Moles/Vol] 4.0 mmol/L 3.3-5.1 [facility] Potassium measurement (mass/ volume)Ordered By: Katie Montelongo on 08-12-2024 Potassium (Unsp spec) [Mass/Vol] 4.0 mmol/L 3.3-5.1 [facility] Random urine creatinine kathleen urement (mass/volume)Ordered By: Katie Montelongo on 08-12-2024 Creatinine Unsp time (U) [Mass/Vol] 87.80 mg/dL 39.00-259. 00 [facility] Screening total cholesterol/ high density lipoprotein (HDL) cholesterol ratioOrdered By: Katie Montelongo on 08-12-2024 Cholesterol.total/Ch olesterol in HDL [Mass ratio] 3.01 {ratio} [facility] Serum creatinine measurement (mass/volume)Ordered By: Katie Montelongo on 08-12-2024 Creatinine [Mass/Vol] 0.94 mg/dL 0.70-1.20 [facility] Serum globulin measurementOr dered By: Katie Montelongo on 08-12-2024 Globulin (S) [Mass/Vol] 3.5 g/dL 2.2-4.2 [facility] Serum glucose measurement (m ass/volume)Ordered By: Katie Montelongo on 08-12-2024 Glucose [Mass/Vol] 97 mg/dL 70-[address] [facility] Serum or plasma alanine gates otransferase (ALT) measurementOrdered By: Katie Montelongo on 08-12-2024 ALT [Catalytic activity/Vol] 180 U/L High <47 [facility] Serum or plasma albumin kathleen urement (mass/volume)Ordered By: Katie Montelongo on 08-12-2024 Albumin [Mass/Vol] 4.3 g/dL 3.5-5.[address] [facility] Serum or plasma albumin/glob ulin mass ratioOrdered By: Katie Montelongo 08-12-2024 Albumin/Globulin [Mass ratio] 1.2 {ratio} 0.9-2.4 [facility] Serum or plasma alkaline negro sphatase measurementOrdered By: Katie Montelongo 08-12-2024 ALP [Catalytic activity/Vol] 59 U/L 40-129 [facility] Serum or plasma calcium kathleen urement (mass/volume)Ordered By: Katie Montelongo 08-12-2024 Calcium [Mass/Vol] 9.5 mg/dL 7.6-11.[address] [facility] Serum or plasma cholesterol in HDL measurement (mass/volume)Ordered By: Katie Montelongo 08-12-2024 Cholesterol in HDL [Mass/Vol] 56 mg/dL >40 [facility] Comment on above: National Cholesterol Education Program (NCEP) guidelines:<40 mg/dL: Low HDL-cholesterol (major risk factor for CHD)>= 60 mg/dL: High HDL-cholesterol (negative risk factor for CHD)HDL-cholesterol is affected by a number of factors, e.g. smoking, exercise, hormones, sex and age. Serum or plasma cholesterol measurement (mass/volume)Ordered By: Katie Montelongo 08-12-2024 Cholesterol [Mass/Vol] 168 mg/dL <201 [facility] Comment on above: Cholesterol level, D esirable <200 mg/dLBorderline high cholesterol 200-239 mg/dLHigh cholesterol >=240 mg/dLRecommendations of the NCEP Adult Treatment Panel for the following risk-cutoff thresholds for the [place] population. Serum or plasma urea nitroge n measurement (mass/volume)Ordered By: Katie Montelongo 08-12-2024 Urea nitrogen [Mass/Vol] 10 mg/dL 4-19 [facility] Sodium levelOrdered By: Katie Montelongo on 04-24-2025 Sodium [Moles/Vol] 133 mmol/L 133-[address] [facility] T4 Free Directon 08-12-2024 T4 FREE DIRECT 2.40 ng/dL High 0.76-1.46 [facility] Comment on above: Performed By: #### L 502.0250, L506.0400, L500.4050, L3300.6820, L501.9520, L500.4100 #### [facility] [place], [address] T4 freeOrdered By: Katie Montelongo on 08-12-2024 Free T4 [Mass/Vol] 2.40 ng/dL High 0.76-1.[address] [facility] TSH DL <= 0.005 mIU/L QnOrde red By: Katie Montelongo on 08-12-2024 Thyroid Stimulating Hormone (TSH) 0.013 uIU/mL Low 0.300-4.[address] [facility] TSH Qn 0.013 uIU/mL Low 0.300-4.[address] [facility] Thyroglobulin Ab serumOrdere d By: Katie Montelongo on 08-12-2024 Thyroglobulin Antibody < 1.0 IU/mL 0.0-0.9 [facility] Comment on above: Thyroglobulin Antibo dy measured by CardiOxMethodologyIt should be noted that the presence of thyroglobulinantibodies may not be pathogenic nor diagnostic, especiallyat very low levels. The assay casting associate has found thatfour percent of individuals without evidence of thyroiddisease or autoimmunity will have positive TgAb levels upto 4 IU/mL. Thyroglobulin serOrdered By: Katie Montelongo on 08-12-2024 Thyroglobulin Level < 0.1 ng/mL Low 1.4-29.[address] [facility] Comment on above: According to the [facility] [facility] [employer]ochemistry,the reference interval for Thyroglobulin (TG) should berelated to euthyroid patients and not for patients whounderwent thyroidectomy. TG reference intervals for thesepatients depend on the residual mass of the thyroid tissueleft after surgery. Establishing a post-operative baselineis recommended. The assay limit of quantitation is 0.1ng/mLThyroglobulin measured by CardiOx ImmunometricAssayPerformed at: [place] [id number] [place], [place] [id number] Director: Jose Riley PhD, Phone: [phone] Thyroid Stim Hormone (TSH)on 08-12-2024 TSH 0.013 uIU/mL Low 0.300-4.[address] [facility] Comment on above: Performed By: #### L 502.0250, L506.0400, L500.4050, L3300.6820, L501.9520, L500.4100 #### [facility] [address] [place], [place], [id number] Total proteinOrdered By: Kai Montelongo on 08-12-2024 Protein [Mass/Vol] 7.8 g/dL 5.9-8.[address] [facility] Triglycerides measurementOrd ered By: Katie Montelongo on 08-12-2024 Triglyceride [Mass/Vol] 160 mg/dL <199 [facility] Comment on above: The drugs N-Acetylcy steine and Metamizole may falsely depress this assay. Normal range: <150 mg/dLBorderline High: 150-199 mg/dLHigh: 200-499 mg/dLVery High: >500 mg/dL Urine albumin measurement [facility] detection limit of 20 mg/L or less (mass/volume)Ordered By: Katie Montelongo on 08-12-2024 Albumin DL <= 20 mg/L (U) [Mass/Vol] 25.2 mg/L NO RANGE EST. [facility] - Hematology and Cell countsOrdered By: Katie Montelongo on 08-03-2024 HbA1c (Bld) [Mass fraction] 5.1 % 4.2-6.3 [facility] .Auto Diffon 10-28-2023 Basophil, Absolute 0.0 10 3/mcL Normal 0.0-0.2 [facility] ([place]) Comment on above: Performed By: #### A DIFF, GFR, TROPHS, CBC, MDW, BMP, ANEU #### [address] [address] Basophils/100 WBC (Bld) 0.3 % Normal 0.0-2.5 [facility] ([place]) Comment on above: Performed By: #### A DIFF, GFR, TROPHS, CBC, MDW, BMP, ANEU #### [address] [address] Eosinophil, Absolute 0.2 10 3/mcL Normal 0.0-0.4 [facility] ([place]) Comment on above: Performed By: #### A DIFF, GFR, TROPHS, CBC, MDW, BMP, ANEU #### [address] [address] Eosinophils/100 WBC (Bld) 2.6 % Normal 0.0-7.0 [facility] ([place]) Comment on above: Performed By: #### A DIFF, GFR, TROPHS, CBC, MDW, BMP, ANEU #### [address] [address] Lymphocyte, Absolute 1.5 10 3/mcL Normal 0.8-3.9 [facility] ([place]) Comment on above: Performed By: #### A DIFF, GFR, TROPHS, CBC, MDW, BMP, ANEU #### [address] [address] Lymphocytes/100 WBC (Bld) 23.4 % Normal 10.0-50.0 [facility] ([place]) Comment on above: Performed By: #### A DIFF, GFR, TROPHS, CBC, MDW, BMP, ANEU #### [address] [address] Monocyte, Absolute 0.6 10 3/mcL Normal 0.2-1.0 [facility] ([place]) Comment on above: Performed By: #### A DIFF, GFR, TROPHS, CBC, MDW, BMP, ANEU #### [address] [address] Monocytes/100 WBC (Bld) 8.9 % Normal 1.7-13.0 [facility] ([place]) Comment on above: Performed By: #### A DIFF, GFR, TROPHS, CBC, MDW, BMP, ANEU #### [address] [address] Neutrophils/100 WBC (Bld) 64.8 % Normal 37.0-80.0 [facility] ([place]) Comment on above: Performed By: #### A DIFF, GFR, TROPHS, CBC, MDW, BMP, ANEU #### [address] [address] .GFRon 10-28-2023 GFR 65 ml/min/1.73sqm Normal [facility] ([place]) Comment on above: Result Comment: GFR Population [...] GFR, TROPHS, CBC, MDW, BMP, ANEU #### [address] [address] GFR Non- 54 ml/min/1.73sqm Normal [facility] ([place]) Comment on above: Result Comment: GFR Population [...] GFR, TROPHS, CBC, MDW, BMP, ANEU #### [address] [address] .MDWon 10-28-2023 Monocyte Distribution Width 19.39 Normal 0.00-20.00 [facility] ([place]) Comment on above: Result Comment: For ED adult patients suspected of sepsis, MDW<=20.0 does not rule out sepsis or risk of sepsis Performed By: #### A DIFF, GFR, TROPHS, CBC, MDW, BMP, ANEU #### [address] [address] .NEUABSon 10-28-2023 Neutrophil, Absolute 4.2 10 3/mcL Normal 2.9-6.2 [facility] ([place]) Comment on above: Performed By: #### A DIFF, GFR, TROPHS, CBC, MDW, BMP, ANEU #### [address] [address] BMPon 10-28-2023 BUN/Creatinine Ratio 9 ratio Normal 7-27 [facility] ([place]) Comment on above: Performed By: #### A DIFF, GFR, TROPHS, CBC, MDW, BMP, ANEU #### [address] [address] Calcium [Mass/Vol] 9.5 mg/dL Normal 8.4-10.2 [facility] ([place]) Comment on above: Performed By: #### A DIFF, GFR, TROPHS, CBC, MDW, BMP, ANEU #### [address] [address] Chloride [Moles/Vol] 97 mmol/L Low 98-107 [facility] ([place]) Comment on above: Performed By: #### A DIFF, GFR, TROPHS, CBC, MDW, BMP, ANEU #### [address] [address] CO2 [Moles/Vol] 30 mmol/L High 22-29 [facility] ([place]) Comment on above: Performed By: #### A DIFF, GFR, TROPHS, CBC, MDW, BMP, ANEU #### [address] [address] Creatinine [Mass/Vol] 1.40 mg/dL High 0.70-1.30 [facility] ([place]) Comment on above: Performed By: #### A DIFF, GFR, TROPHS, CBC, MDW, BMP, ANEU #### [address] [address] Electrolyte Balance 8.0 mEq/L Normal 4.0-15.0 [facility] ([place]) Comment on above: Performed By: #### A DIFF, GFR, TROPHS, CBC, MDW, BMP, ANEU #### [address] [address] Glucose [Mass/Vol] 144 mg/dL High 70-105 [facility] ([place]) Comment on above: Performed By: #### A DIFF, GFR, TROPHS, CBC, MDW, BMP, ANEU #### [address] [address] Potassium [Moles/Vol] 4.2 mmol/L Normal 3.5-5.1 [facility] ([place]) Comment on above: Performed By: #### A DIFF, GFR, TROPHS, CBC, MDW, BMP, ANEU #### [address] [address] Sodium [Moles/Vol] 135 mmol/L Low 136-145 [facility] ([place]) Comment on above: Performed By: #### A DIFF, GFR, TROPHS, CBC, MDW, BMP, ANEU #### [address] [address] Urea nitrogen [Mass/Vol] 12 mg/dL Normal 7-18 [facility] ([place]) Comment on above: Performed By: #### A DIFF, GFR, TROPHS, CBC, MDW, BMP, ANEU #### [address] [address] CBCon 10-28-2023 Erythrocyte distribution width (RBC) [Ratio] 14.5 % Normal 11.5-14.5 [facility] ([place]) Comment on above: Performed By: #### A DIFF, GFR, TROPHS, CBC, MDW, BMP, ANEU #### [address] [address] Hematocrit (Bld) [Volume fraction] 44.2 % Normal 42.0-52.0 [facility] ([place]) Comment on above: Performed By: #### A DIFF, GFR, TROPHS, CBC, MDW, BMP, ANEU #### [address] [address] Hgb 15.6 G/dL Normal 14.0-18.0 [facility] ([place]) Comment on above: Performed By: #### A DIFF, GFR, TROPHS, CBC, MDW, BMP, ANEU #### [address] [address] MCH (RBC) [Entitic mass] 32.8 pg High 27.0-31.2 [facility] ([place]) Comment on above: Performed By: #### A DIFF, GFR, TROPHS, CBC, MDW, BMP, ANEU #### [address] [address] MCHC 35.3 G/dL Normal 31.8-35.4 [facility] ([place]) Comment on above: Performed By: #### A DIFF, GFR, TROPHS, CBC, MDW, BMP, ANEU #### [address] [address] MCV (RBC) [Entitic vol] 92.9 fL Normal 80.0-94.0 [facility] ([place]) Comment on above: Performed By: #### A DIFF, GFR, TROPHS, CBC, MDW, BMP, ANEU #### [address] [address] Platelet 186 10 3/mcL Normal 130-400 [facility] ([place]) Comment on above: Performed By: #### A DIFF, GFR, TROPHS, CBC, MDW, BMP, ANEU #### [address] [address] Platelet mean volume (Bld) [Entitic vol] 8.0 fL Normal 7.4-10.4 [facility] ([place]) Comment on above: Performed By: #### A DIFF, GFR, TROPHS, CBC, MDW, BMP, ANEU #### [address] [address] RBC 4.76 10 6/mcL Normal 4.04-6.13 [facility] ([place]) Comment on above: Performed By: #### A DIFF, GFR, TROPHS, CBC, MDW, BMP, ANEU #### [address] [address] WBC 6.5 10 3/mcL Normal 4.6-10.8 [facility] ([place]) Comment on above: Performed By: #### A DIFF, GFR, TROPHS, CBC, MDW, BMP, ANEU #### [address] [address] LABORATORYOrdered By: SYSTEM SYSTEM on 10-28-2023 Basophil, [...] ng/L Male: 0-76 ng/L Testing performed on [employer] using a homogeneous sandwich chemiluminescent immunoassay based on [employer] technology. Urea nitrogen [Mass/Vol] 12 mg/dL Normal 7 - 18 mg/dL AO ADM SS Urea nitrogen/Creatinine [Mass ratio] 9 ratio Normal 7 - 27 ratio AO ADM SS WBC (Bld) [#/Vol] 6.5 103/mcL Normal 4.6 - 10.8 10^3/mcL AO Workflow SS TROPHSon 10-28-2023 High Sensitivity Troponin I 6 ng/L Normal 0-76 [facility] ([place]) Comment on above: Result Comment: High Sensitive Troponin I Reference Ranges: Female: 0-51 ng/L Male: 0-76 ng/L Testing performed on [employer] using a homogeneous sandwich chemiluminescent immunoassay based on [employer] technology. Performed By: #### A DIFF, GFR, TROPHS, CBC, MDW, BMP, ANEU #### [id number] [place], [place] [address] XR CHEST 1 VIEWon 10-28-2023 XR CHEST [...] 10/28/2023 8:02:17 AM Ordering Provider: SHELLEY Persaud [facility] ([place]) Absolute lymphocyte countOrd ered By: Sravan Garsia on 04-28-2023 Lymphocytes Auto (Unsp spec) [#/Vol] 1.87 10*3/uL 0.83-4.51 [facility] Basophil percentageOrdered B y: Sravan Garsia on 04-28-2023 Basophils/100 WBC (Bld) 0.5 % 0-1 [facility] Bilirubin [Mass/Vol] 0.40 mg/dL 0.20-1.[address] [facility] Comment on above: For patients on eltr ombopag therapy, use of Dimension [place] TBIL is not recommended. Chloride [Moles/Vol] 107 mmol/L 98-[address] [facility] Cholesterol [Mass/Vol] 200 mg/dL <200 [facility] Comment on above: <200 mg/dL Desirable 200-240 mg/dL Borderline >240 mg/dL High Risk Eosinophils/100 WBC (Bld) 2.7 % 0-5 [facility] Glucose [Mass/Vol] 189 mg/dL 74-[address] [facility] Comment on above: Fasting Glucose resu lt greater than or equal to 126 mg/dL suggests DIABETES MELLITUS per A.D.A. criteria. Neutrophils (Bld) [#/Vol] 3.6 10*3/uL 2.0-7.7 [facility] Neutrophils/100 WBC (Bld) 57.8 % 47-70 [facility] Potassium [Moles/Vol] 4.6 mmol/L 3.5-5.1 [facility] Protein [Mass/Vol] 7.4 g/dL 6.4-8.[address] [facility] Sodium [Moles/Vol] 137 mmol/L 136-[address] [facility] Triglyceride [Mass/Vol] 225 mg/dL <199 [facility] Comment on above: The drugs N-Acetylcy steine and Metamizole may falsely depress this assay.Serum Triglycerides Reference Interval Normal <150 mg/dL Borderline high 150 - 199 mg/dL High 200 - 499 mg/dL Very High > or = 500 mg/dL WBC (Bld) [#/Vol] 6.3 10*3/uL 4.4-11.[address] [facility] Blood erythrocytes count (nu mber/volume)Ordered By: Sravan Garsia on 04-28-2023 RBC (Bld) [#/Vol] 4.34 10*6/uL 4.6-6.2 [facility] Blood hemoglobin measurement (mass/volume)Ordered By: Sravan Garsia on 04-28-2023 Hemoglobin (Bld) [Mass/Vol] 13.5 g/dL 13.0-16.5 [facility] Blood lymphocytes/100 leukoc ytesOrdered By: Sravan Garsia on 04-28-2023 Lymphocytes/100 WBC (Bld) 29.9 % 19-41 [facility] Blood monocytes/100 leukocyt esOrdered By: Sravan Garsia on 04-28-2023 Monocytes/100 WBC (Bld) 8.5 % 0-10 [facility] Blood platelet mean volumeOr dered By: Sravan Garsia on 04-28-2023 Platelet mean volume (Bld) [Entitic vol] 10.6 fL 6.2-12.0 [facility] Determination of erythrocyte mean corpuscular volume (MCV)Ordered By: Sravan Garsia on 04-28-2023 MCV (RBC) [Entitic vol] 92.6 fL 80-94 [facility] Hematocrit Auto (Bld) [Volum e fraction]Ordered By: Sravan Garsia on 04-28-2023 Hematocrit (Bld) [Volume fraction] 40.2 % 40-54 [facility] - Chemistry and C hemistry - challengeOrdered By: Sravanbrent Garsia on 04-28-2023 ALP [Catalytic activity/Vol] 75 U/L 45-117 [facility] ALT [Catalytic activity/Vol] 56 U/L 16-61 [facility] CO2 [Moles/Vol] 22.0 mmol/L 21.0-32.0 [facility] Free T4 [Mass/Vol] 1.26 ng/dL 0.76-1.[address] [facility] Globulin (S) [Mass/Vol] 3.9 g/dL 2.2-4.2 [facility] Natriuretic peptide B (Bld) [Mass/Vol] 15.2 pg/mL 0-100 [facility] Urea nitrogen/Creatinine [Mass ratio] 13.9 mg/mg 10-20 [facility] - Hematology and Cell countsOrdered By: Sravan Garsia on 04-28-2023 Erythrocyte distribution width (RBC) [Entitic vol] 46.1 fL 35.1-43.9 [facility] Erythrocyte distribution width (RBC) [Ratio] 13.6 % 11.6-14.6 [facility] Immature granulocytes/100 WBC (Bld) 0.600 % 0.0-0.9 [facility] Comment on above: IG% - Immature Granu locytes (promyelocytes, myelocytes and metamyelocytes) > 1% indicates that a LEFT SHIFT is Present. MCH (RBC) [Entitic mass] 31.1 pg 27.0-32.0 [facility] Nucleated RBC/100 WBC (Bld) [Ratio] 0 % 0-5 [facility] MCHC Auto (RBC) [Mass/Vol]Or dered By: Sravan Garsia on 04-28-2023 MCHC (RBC) [Mass/Vol] 33.6 g/dL 32-36 [facility] No Panel InformationOrdered By: Sravan Garsia on 04-28-2023 Estimated GFR (MDRD) Amer 93 mL/min >60 [facility] Comment on above: GFR Calc Estimated GFR (MDRD) Non-Af Amer 77 mL/min >60 [facility] Comment on above: Non- GFR Calc Free Triiodothyronine (T3) pg/dL 2.4 pg/mL 2.18-3.98 [facility] Thyroid Stimulating Hormone (TSH) 1.57 uIU/mL 0.358-3.74 [facility] Vitamin D 25-Hydroxy 28.5 ng/mL [facility] Comment on above: Vitamin D 25(OH) Sta tus Range Deficiency <20 ng/mL (50nmol/L) Insufficiency 20 - 30 ng/mL (50 - 75 nmol/L) Sufficiency 30 - 100 ng/mL (75 - 250 nmol/L) Toxicity >100 ng/mL (>250 nmol/L) Platelets bldOrdered By: America Garsia on 04-28-2023 Platelets (Bld) [#/Vol] 190 10*3/uL 150-450 [facility] Serum or plasma albumin kathleen urement (mass/volume)Ordered By: Sravan Garsia on 04-28-2023 Albumin [Mass/Vol] 3.5 g/dL 3.2-5.[address] [facility] Serum or plasma albumin/glob ulin mass ratioOrdered By: Sravan Garsia on 04-28-2023 Albumin/Globulin [Mass ratio] 0.9 {ratio} 0.9-2.4 [facility] Serum or plasma calcium kathleen urement (mass/volume)Ordered By: Sravan Garsia on 04-28-2023 Calcium [Mass/Vol] 9.0 mg/dL 8.5-10.[address] [facility] Serum or plasma cholesterol in HDL measurement (mass/volume)Ordered By: Sravan Garsia on 04-28-2023 Cholesterol in HDL [Mass/Vol] 51 mg/dL >40 [facility] Comment on above: The drugs N-Acetylcy steine and Metamizole may falsely depress this assay. Reference Range HDL <40 mg/dL Low HDL Cholesterol HDL >or= 60 mg/dL High HDL Cholesterol Serum or plasma cholesterol in VLDL measurement (mass/volume)Ordered By: Sravan Garsia on 04-28-2023 Cholesterol in VLDL [Mass/Vol] 45 mg/dL 5-40 [facility] Serum or plasma creatinine m easurement (mass/volume)Ordered By: Sravan Garsia on 04-28-2023 Creatinine [Mass/Vol] 1.08 mg/dL 0.70-1.30 [facility] Comment on above: The validity of the calculated GFR & GFRAA in patients over 70 years has not been determined. Clinical correlation is essential. Serum or plasma low density lipoprotein (LDL) cholesterol measurement (mass/volume)Ordered By: Sravan Garsia on 04-28-2023 Cholesterol in LDL [Mass/Vol] 104 mg/dL 0-130 [facility] Serum or plasma urea nitroge n measurement (mass/volume)Ordered By: Sravan Garsia on 04-28-2023 Urea nitrogen [Mass/Vol] 15 mg/dL 7-18 [facility] Thin prep Papanicolaou smear with manual screeningOrdered By: Sravan Garsia on 04-28-2023 Thin prep Papanicolaou smear with manual screening 42 U/L 15-37 [facility] Thin prep Papanicolaou smear with manual screening 8 5-15 [facility] Whole blood hemoglobin A1c/t otal hemoglobin ratio (mass fraction)Ordered By: Sravan Garsia on 04-28-2023 HbA1c (Bld) [Mass fraction] 6.9 % 3.8-5.6 [facility] Comment on above: Normal < 5.7 % Predi abetic 5.7 - 6.4 % Diabetic >or= 6.5 % Please note range changes. Basophil percentageon 2021 Bilirubin [Mass/Vol] 0.60 mg/dL 0.20-1.[address] [facility] Work Phone: Comment on above: For patients on eltr ombopag therapy, use of Dimension [place] TBIL is not recommended. Chloride [Moles/Vol] 102 mmol/L 98-[address] [facility] Work Phone: Glucose [Mass/Vol] 165 mg/dL 74-[address] [facility] Work Phone: Comment on above: Fasting Glucose resu lt greater than or equal to 126 mg/dL suggests DIABETES MELLITUS per A.D.A. criteria. Potassium [Moles/Vol] 4.0 mmol/L 3.5-5.1 [facility] Work Phone: Protein [Mass/Vol] 8.0 g/dL 6.4-8.[address] [facility] Work Phone: Sodium [Moles/Vol] 135 mmol/L 136-[address] [facility] Work Phone: Testosterone [Mass/Vol] 84 ng/dL [facility] Work Phone: Comment on above: Adult male reference interval is based on a population ofhealthy nonobese males (BMI <30) between 19 and 39 yearsold. Humble et.al. JCEM 2017,102;[id number]. PMID:[id number]. Free testosterone percentage on 07-17-2021 Testosterone Free/Testosterone.to huang [Mass fraction] 3.82 % [facility] Work Phone: Laboratory - Chemistry and C hemistry - challengeon 07-17-2021 ALP [Catalytic activity/Vol] 71 U/L 45-117 [facility] Work Phone: ALT [Catalytic activity/Vol] 56 U/L 16-61 [facility] Work Phone: CO2 [Moles/Vol] 24.0 mmol/L 21.0-32.0 [facility] Work Phone: Free T4 [Mass/Vol] 1.45 ng/dL 0.76-1.[address] [facility] Work Phone: Globulin (S) [Mass/Vol] 3.9 g/dL 2.2-4.2 [facility] Work Phone: Urea nitrogen/Creatinine [Mass ratio] 10.9 mg/mg 10-20 [facility] Work Phone: No Panel Informationon 07-17 Estimated GFR (MDRD) Amer 77 mL/min >60 [facility] Work Phone: Comment on above: GFR Calc Estimated GFR (MDRD) Non-Af Amer 64 mL/min >60 [facility] Work Phone: Comment on above: Non- GFR Calc Follicle Stimulating Hormone 0.3 mIU/mL [facility] Work Phone: Comment on above: NORMAL REFERENCE RAN GES FEMALE FOLLICULAR 2.3 - 12.6 mIU/mL MID-CYCLE PEAK 5.2 - 17.5 mIU/mL LUTEAL 1.7 - 12.9 mIU/mL POST-MENOPAUSAL ON MHT 5.9 - 72.8 mIU/mL NOT ON MHT 12.7 - 132.2 mlU/mL MALE 0.7 - 10.8 mIU/mL Luteinizing Hormone < 0.2 mIU/mL [facility] Work Phone: Comment on above: NORMAL REFERENCE RAN GES FEMALE FOLLICULAR 1.9 - 26.2 mIU/mL MID-CYCLE PEAK 22.8 - 76.1 mIU/mL LUTEAL 0.6 - 16.6 mIU/mL POST-MENOPAUSAL ON MHT 1.1 - 52.4 mIU/mL NOT ON MHT 8.6 - 61.8 mIU/mL MALE 1.2 - 10.6 mIU/mL Thyroglobulin Antibody < 1.0 IU/mL [facility] Work Phone: Comment on above: Thyroglobulin Antibo dy measured by [employer] Thyroglobulin Level 0.1 ng/mL [facility] Work Phone: Comment on above: According to the [facility] Academy of Clinical Biochemistry,the reference interval for Thyroglobulin (TG) should berelated to euthyroid patients and not for patients whounderwent thyroidectomy. TG reference intervals for thesepatients depend on the residual mass of the thyroid tissueleft after surgery. Establishing a post-operative baselineis recommended. The assay limit of quantitation is 0.1ng/mLThyroglobulin measured by [employer] ImmunometricAssayPerformed at: [facility] [id number] Director: Jose Riley PhD, Phone: [phone] at: [address] [id number] Director: Jeannie Duarte MD, Phone: [phone] Thyroid Stimulating Hormone (TSH) 0.30 uIU/mL 0.358-3.74 [facility] Work Phone: Urine Microalbumin/Creatin ine Ratio 74.5 mg/g CRE <30 [facility] Work Phone: Vitamin D 25-Hydroxy 30.2 ng/mL [facility] Work Phone: Comment on above: Vitamin D 25(OH) Sta tus Range Deficiency <20 ng/mL (50nmol/L) Insufficiency 20 - 30 ng/mL (50 - 75 nmol/L) Sufficiency 30 - 100 ng/mL (75 - 250 nmol/L) Toxicity >100 ng/mL (>250 nmol/L) Serum or plasma albumin kathleen urement (mass/volume)on 07-17-2021 Albumin [Mass/Vol] 4.1 g/dL 3.2-5.[address] [facility] Work Phone: Serum or plasma albumin/glob ulin mass ratioon 07-17-2021 Albumin/Globulin [Mass ratio] 1.1 {ratio} 0.9-2.4 [facility] Work Phone: Serum or plasma calcium kathleen urement (mass/volume)on 07-17-2021 Calcium [Mass/Vol] 9.2 mg/dL 8.5-10.[address] [facility] Work Phone: Serum or plasma creatinine m easurement (mass/volume)on 07-17-2021 Creatinine [Mass/Vol] 1.28 mg/dL 0.70-1.30 [facility] Work Phone: Comment on above: The validity of the calculated GFR & GFRAA in patients over 70 years has not been determined. Clinical correlation is essential. Serum or plasma prolactin me asurement (mass/volume)on 07-17-2021 Prolactin [Mass/Vol] 7.5 ng/mL [facility] Work Phone: Comment on above: NORMAL REFERENCE RAN GES FEMALE NON- 2.2 - 30.3 ng/mL 8.1 - 347.6 ng/mL POST-MENOPAUSAL 0.7 - 31.5 ng/mL MALE 2.5 - 17.4 ng/mL Serum or plasma testosterone free measurement (mass/volume)on 07-17-2021 Testosterone Free [Mass/Vol] 3.21 ng/dL [facility] Work Phone: Serum or plasma urea nitroge n measurement (mass/volume)on 07-17-2021 Urea nitrogen [Mass/Vol] 14 mg/dL 7-18 [facility] Work Phone: Thin prep Papanicolaou smear with manual screeningon 07-17-2021 Thin prep Papanicolaou smear with manual screening 34 U/L 15-37 [facility] Work Phone: Thin prep Papanicolaou smear with manual screening 9 5-15 [facility] Work Phone: Thin prep Papanicolaou smear with manual screening 114.0 mg/L NO RANGE EST. [facility] Work Phone: Urine creatinine measurement (mass/volume)on 07-17-2021 Creatinine (U) [Mass/Vol] 153.00 mg/dL NO RANGE EST. [facility] Work Phone: Vital Signs Date Time Vital Sign Value Performing Clinician Facility 11-09-2024 13:46-0400 Body height 190.[address] Sravan Garsia MD Work Phone: [facility] 11-09-2024 13:46-0400 Body mass index (BMI) [Ratio] 41.3 kg/m2 Dr. Sravan Garsia MD Work Phone: [facility] 11-09-2024 13:46-0400 Body weight 150.[address] Sravan Garsia MD Work Phone: [facility] 11-09-2024 13:46-0400 Diastolic blood pressure 98 mm[Hg] Dr. Sravan Garsia MD Work Phone: [facility] 11-09-2024 13:46-0400 Heart rate 73 /min Dr. Sravan Garsia MD Work Phone: [facility] 11-09-2024 13:46-0400 SaO2% (BldA) [Mass fraction] 99 % Dr. Sravan Garsia MD Work Phone: [facility] 11-09-2024 13:46-0400 Systolic blood pressure 150 mm[Hg] Dr. Sravan Garsia MD Work Phone: [facility] 09-20-2024 13:41-0400 Body height 190.[address] Sravan Garsia MD Work Phone: [facility] 09-20-2024 13:41-0400 Body mass index (BMI) [Ratio] 42.1 kg/m2 Dr. Sravan Garsia MD Work Phone: [facility] 09-20-2024 13:41-0400 Body weight 152.[address] Sravan Garsia MD Work Phone: [facility] 09-20-2024 13:41-0400 Diastolic blood pressure 70 mm[Hg] Dr. Sravan Garsia MD Work Phone: [facility] 09-20-2024 13:41-0400 Systolic blood pressure 120 mm[Hg] Dr. Sravan Garsia MD Work Phone: [facility] 08-03-2024 13:39-0400 Body height 190.[address] Sravan Garsia MD Work Phone: [facility] 08-03-2024 13:39-0400 Body mass index (BMI) [Ratio] 44.2 kg/m2 Dr. Sravan Garsia MD Work Phone: [facility] 08-03-2024 13:39-0400 Body weight 160.[address] Sravan Garsia MD Work Phone: [facility] 08-03-2024 13:39-0400 Diastolic blood pressure 85 mm[Hg] Dr. Sravan Garsia MD Work Phone: [facility] 08-03-2024 13:39-0400 Heart rate 80 /min Dr. Sravan Garsia MD Work Phone: [facility] 08-03-2024 13:39-0400 SaO2% (BldA) [Mass fraction] 98 % Dr. Sravan Garsia MD Work Phone: [facility] 08-03-2024 13:39-0400 Systolic blood pressure 133 mm[Hg] Dr. Sravan Garsia MD Work Phone: [facility] 10-28-2023 08:31-0400 Blood Pressure Location SHELLEY JONESVook [facility] 10-28-2023 08:31-0400 Blood Pressure Method SHELLEY JONESGrasswire D O [facility] 10-28-2023 08:31-0400 Diastolic Blood Pressure Non-Invasive 94 mm[Hg] SHELLEY JONESGrasswire [facility] 10-28-2023 08:31-0400 Heart rate 76 /min SHELLEY JONESGrasswire DO [facility] 10-28-2023 08:31-0400 Respiratory rate 18 /min SHELLEY JONEST DO [facility] 10-28-2023 08:31-0400 Systolic Blood Pressure Non-Invasive 152 mm[Hg] SHELLEY WALTONMagnolia FashionT DO [facility] 10-28-2023 07:18-0400 Blood Pressure Location SHELLEY WALTONMagnolia FashionT DO [facility] 10-28-2023 07:18-0400 Blood Pressure Method SHELLEY [employer] D O [facility] 10-28-2023 07:18-0400 Body temperature 98.24 [degF] SHELLEY JONESGrasswire [facility] 10-28-2023 07:18-0400 Diastolic Blood Pressure Non-Invasive 98 mm[Hg] SHELLEY WALTONMagnolia FashionT DO [facility] 10-28-2023 07:18-0400 Heart rate 73 /min SHELLEY JONESGrasswire [facility] 10-28-2023 07:18-0400 Respiratory rate 18 /min [facility] 10-28-2023 07:18-0400 Systolic Blood Pressure Non-Invasive 150 mm[Hg] [facility]ENTER[facility]ass[facility] 06-30-2022 16:47-0400 Diastolic Blood Pressure Non-Invasive 116 1 JOHNNY GARCIA MD [facility] 06-30-2022 16:47-0400 Heart rate 96 /min JOHNNY GARCIA MD [facility] 06-30-2022 16:47-0400 Respiratory rate 18 /min JOHNNY GARCIA MD [facility] 06-30-2022 16:47-0400 Systolic Blood Pressure Non-Invasive 183 1 JOHNNY GARCIA MD [facility] 06-30-2022 14:23-0400 Blood Pressure Location JOHNNY GARCIA MD [facility] 06-30-2022 14:23-0400 Body height 190.5 cm JOHNNY GARCIA MD [facility] 06-30-2022 14:23-0400 Body temperature 97.7 [degF] JOHNNY GARCIA MD [facility] 06-30-2022 14:23-0400 Body weight 181.8 kg JOHNNY GARCIA MD [facility] 06-30-2022 14:23-0400 Diastolic Blood Pressure Non-Invasive 90 1 JOHNNY GARCIA MD [facility] 06-30-2022 14:23-0400 Heart rate 111 /min JOHNNY GARCIA MD [facility] 06-30-2022 14:23-0400 Respiratory rate 16 /min JOHNNY GARCIA MD [facility] 06-30-2022 14:23-0400 Systolic Blood Pressure Non-Invasive 155 1 JOHNNY GARCIA MD [facility] 12-11-2021 16:26-0400 Diastolic blood pressure 103 mm[Hg] Dr. Sravan Garsia Work Phone: [facility] Work Phone: 12-11-2021 16:26-0400 Heart rate 92 /min Dr. Sravan Garsia Work Phone: [facility] Work Phone: 12-11-2021 16:26-0400 Respiratory rate 15 /min Dr. Sravan Garsia Work Phone: [facility] Work Phone: 12-11-2021 16:26-0400 SaO2% (BldA) [Mass fraction] 99 % Dr. Sravan Garsia Work Phone: [facility] Work Phone: 12-11-2021 16:26-0400 Systolic blood pressure 196 mm[Hg] Dr. Sravan Garsia Work Phone: [facility] Work Phone: 12-11-2021 15:39-0400 Body height 190.[address] Sravan Garsia Work Phone: [facility] Work Phone: 12-11-2021 15:39-0400 Body mass index (BMI) [Ratio] 50 kg/m2 Dr. Sravan Garsia Work Phone: [facility] Work Phone: 12-11-2021 15:39-0400 Body temperature 97.4 [degF] Dr. Sravan Garsia Work Phone: [facility] Work Phone: 12-11-2021 15:39-0400 Body weight 181.[address] Sravan Garsia Work Phone: [facility] Work Phone: 08-27-2021 08:34-0400 Body mass index (BMI) [Ratio] 50.3 kg/m2 Dr. Sravan Garsia Work Phone: [facility] Work Phone: 08-27-2021 08:34-0400 Body temperature 95.2 [degF] Dr. Sravan Garsia Work Phone: [facility] Work Phone: 08-27-2021 08:34-0400 Body weight 182.[address] Sravan Garsia Work Phone: [facility] Work Phone: 08-27-2021 08:34-0400 Diastolic blood pressure 98 mm[Hg] Dr. Sravan Garsia Work Phone: [facility] Work Phone: 08-27-2021 08:34-0400 Heart rate 80 /min Dr. Sravan Garsia Work Phone: [facility] Work Phone: 08-27-2021 08:34-0400 Respiratory rate 18 /min Dr. Sravan Garsia Work Phone: [facility] Work Phone: 08-27-2021 08:34-0400 SaO2% (BldA) [Mass fraction] 97 % Dr. Sravan Garsia Work Phone: [facility] Work Phone: 08-27-2021 08:34-0400 Systolic blood pressure 150 mm[Hg] Dr. Sravan Garsia Work Phone: [facility] Work Phone: 07-17-2021 10:23-0400 Body height 190.[address] Sravan Garsia Work Phone: [facility] Work Phone: 07-17-2021 10:23-0400 Body mass index (BMI) [Ratio] 50.3 kg/m2 Dr. Sravan Garsia Work Phone: [facility] Work Phone: 07-17-2021 10:23-0400 Body temperature 95.2 [degF] Dr. Sravan Garsia Work Phone: [facility] Work Phone: 07-17-2021 10:23-0400 Body weight 182.[address] Sravan Garsia Work Phone: [facility] Work Phone: 07-17-2021 10:23-0400 Diastolic blood pressure 130 mm[Hg] Dr. Sravan Garsia Work Phone: [facility] Work Phone: 07-17-2021 10:23-0400 Heart rate 94 /min Dr. Sravan Garsia Work Phone: [facility] Work Phone: 07-17-2021 10:23-0400 Respiratory rate 18 /min Dr. Sravan Garsia Work Phone: [facility] Work Phone: 07-17-2021 10:23-0400 SaO2% (BldA) [Mass fraction] 94 % Dr. Sravan Garsia Work Phone: [facility] Work Phone: 07-17-2021 10:23-0400 Systolic blood pressure 180 mm[Hg] Dr. Sravan Garsia Work Phone: [facility] Work Phone: 06-19-2021 09:57-0500 Body mass index (BMI) [Ratio] 50.1 kg/m2 Dr. Sravan Garsia Work Phone: [facility] Work Phone: 06-19-2021 09:57-0500 Body temperature 96.4 [degF] Dr. Sravan Garsia Work Phone: [facility] Work Phone: 06-19-2021 09:57-0500 Body weight 181.[address] Sravan Garsia Work Phone: [facility] Work Phone: 06-19-2021 09:57-0500 Diastolic blood pressure 92 mm[Hg] Dr. Sravan Garsia Work Phone: [facility] Work Phone: 06-19-2021 09:57-0500 Heart rate 68 /min Dr. Sravan Garsia Work Phone: [facility] Work Phone: 06-19-2021 09:57-0500 Respiratory rate 16 /min Dr. Sravan Garsia Work Phone: [facility] Work Phone: 06-19-2021 09:57-0500 SaO2% (BldA) [Mass fraction] 98 % Dr. Sravan Garsia Work Phone: [facility] Work Phone: 06-19-2021 09:57-0500 Systolic blood pressure 160 mm[Hg] Dr. Sravan Garsia Work Phone: [facility] Work Phone: Encounters Encounter Date Encounter Type Care Provider Facility Start: 12-22-2024 End: 12-22-2024 ambulatory Sravan Garsia Facility:[facility] Start: 12-16-2024 ambulatory Sravan Garsia Facility :[facility] Start: 11-09-2024 End: 11-09-[address] Katie Montelongo MD -[facility] Work Phone: Start: 11-09-2024 End: 11-09-[address] Sravan Garsia MD Work Phone: -[facility] Start: 10-14-2024 End: 10-14-2024 Emergency department patient visit DR JANI BRAGG MD [facility] Start: 09-23-2024 End: 09-23-2024 Patient encounter procedure Katie Montelongo MD -[facility] Work Phone: Start: 09-23-2024 End: 09-23-[address] Sravan Garsia MD Work Phone: [facility] Work Phone: Start: 09-20-2024 End: 09-20-[address] Sravan Garsia MD Work Phone: [facility] Work Phone: Start: 09-20-2024 End: 09-20-[address] Katie Montelongo MD -[facility] Work Phone: Start: 09-20-2024 End: 09-20-2024 ambulatory Katie Montelongo Facility:[facility] Start: 08-12-2024 End: 08-12-[address] Sravan Garsia MD Work Phone: [facility] Work Phone: Start: 08-12-2024 End: 08-12-[address] [facility] Start: 08-12-2024 End: 08-12-2024 ambulatory Katie Montelongo Facility:[facility] Start: 08-03-2024 End: 08-03-[address] Katie Montelongo MD -[facility] Work Phone: Start: 08-03-2024 End: 08-03-2024 ambulatory [facility] Start: 07-05-2024 ambulatory [facility] Facility :[facility] Start: 01-16-2024 [facility] Facility :[facility] Start: 10-28-2023 End: 10-28-2023 Emergency department patient visit SHELLEY ISABELLEJAMES HUMMEL [facility] Start: 04-28-2023 End: 04-28-[address] [facility] Work Phone: Start: 04-28-2023 End: 04-28-[address] [facility] Work Phone: Start: 06-30-2022 End: 06-30-2022 Emergency department patient visit JOHNNY GARCIA MD [facility] Start: 12-11-2021 Non-patient / Non-visit Dr. Sravan Garsia Work Phone: [facility] Start: 12-11-2021 End: 12-11-2021 Emergency department patient visit Dr. Sravan Garsia Work Phone: [facility]-Emergency Department Start: 11-19-2021 End: 11-19-[address] Sravan Garsia Work Phone: [facility] Start: 10-19-2021 End: 10-19-2021 Patient encounter procedure SRAVAN GARSIA MD [facility] Start: 09-05-2021 End: 09-05-[address] Sravan Garsia Work Phone: [facility] Start: 08-27-2021 End: 08-27-[address] Sravan Garsia Work Phone: [facility] Start: 08-20-2021 End: 08-20-2021 Patient encounter procedure KATIE MONTELONGO MD [facility] Start: 08-01-[address] Sravan Garsia Work Phone: [facility]-Physical Therapy Start: 07-30-2021 Non-patient / Non-visit Dr. Sravan Garsia Work Phone: [facility] Start: 07-30-2021 End: 07-30-[address] Sravan Garsia Work Phone: [facility]-Cardiovascular Services Start: 07-19-[address] Sravan Garsia Work Phone: [facility]Physical Therapy Start: 07-17-2021 End: 07-17-[address] Sravan Garsia Work Phone: [facility]-Laboratory, [facility] Start: 07-17-2021 End: 07-17-[address] Sravan Garsia Work Phone: [facility] Start: 06-19-2021 End: 06-19-[address] Sravan Garsia Work Phone: [facility] Internal Medicine Procedures Date Procedure [...] limit of quantitation is 0.1ng/mLThyroglobulin measured by CardiOx ImmunometricAssayPerformed at: [facility] [address] [id number] Director: Jose Riley PhD, Phone: [phone] Start: 08-12-[address] Mirza Garsia MD Work Phone: Comment on above: Thyroglobulin Antibody measured by [employer] MedicalMethodologyIt should be noted that the presence of thyroglobulinantibodies may not be pathogenic nor diagnostic, especiallyat very low levels. The assay casting associate has found thatfour percent of individuals without [...] Activity Detail Author Start: 11-20-2021 Patient referral [facility] Work Phone: Start: 08-27-2021 Patient referral [facility] Work Phone: Start: 06-19-2021 Patient referral [facility] Work Phone: Comprehensive metabo lic 2000 panel - Serum or Plasma [facility] Patient Education ED Pain, Acute , Uncertain Cause ED Muscle Strain, Extremity [facility] Work Phone: Patient referral [facility] Work Phone: Testosterone Free [Mass/volume] in Serum or Plasma [facility] Testosterone measurement [facility] Testosterone measurement [facility] Thyroglobulin and Thyrogobulin Ab panel - Serum or Plasma [facility] Thyroid stimulating hormone measurement [facility] Immunizations Immunization Date Immunization Notes Care Provider Fa [facility] 06-30-2022 tetanus toxoid, redu leonie diphtheria toxoid, and acellular pertussis vaccine, adsorbed JOHNNY GARCIA MD [facility] 01-30-2022 influenza, injectabl e, quadrivalent, preservative free [facility] Payers Date Payer Category Payer Self-pay [id number] 2023 Unknown [id number] 2021 Private Health Insurance [id number] 1975 Unknown [id number] 1973 Unknown [id number]. [id number] Unknown [id number] .16.8 [id number] Unknown [id number] 2.16.8 [id number] Unknown [id number] 2.16.8 [id number] Unknown [id number] 2.16.8 [id number] Unknown [id number] 2.16.8 [id number] Unknown [id number] 2.16.8 [id number] Unknown [id number] 2.16.8 [id number] Unknown [id number] 2.16.8 [id number] Unknown [id number] 2.16.8 [id number] Social History Date Type Detail Facility Start: 07-17-2021 End: 12-06-2022 Tobacco smoking status [facility] Unknown if ever smoked [facility] Start: 1975 Sex Assigned At Male [facility] Work Phone: Tobacco smoking status [facility] Start: 06-13-2023 End: 09-20-2024 Tobacco smoking status IAIS Ex-smoker (finding) [facility] Start: 08-07-2021 End: 08-17-2024 Sex Male (finding) [facility] Medical Equipment Procedure Code Equipment Code Equipment Origin al Text Equipment Identifier Dates Blood Sugar Diagnostic (Onetouch Verio Test Strips) strip Start: 11-21-2023 Lancets (Onetouc h Delica Plus Lancet) 33 gauge [facility] Start: 11-21-2023 Blood Sugar Diagnostic (Onetouch Verio Test Strips) strip Start: 11-21-2023 Lancets (Onetouc h Delica Plus Lancet) 33 gauge mis Start: 11-21-2023 Blood Sugar Diagnostic (Onetouch Verio Test Strips) strip Start: 11-21-2023 Lancets (Onetouc h Delica Plus Lancet) 33 gauge mis Start: 11-21-2023 Blood Sugar Diagnostic (Onetouch Verio Test Strips) strip Start: 11-21-2023 Lancets (Onetouc h Delica Plus Lancet) 33 gauge [facility] Start: 11-21-2023 Functional Status Date Assessment Result Facility 10-28-2023 Functional Status Independent [facility] 10-28-2023 Functional Status ID band on, Allergy Band on, Call device within reach, Bed in low position, Wheels locked, Upper/Half-Length side-rails up, Safety level maintained [facility] 06-30-2022 Functional Status Independent [facility] 06-30-2022 Functional Status Standard Safet y ID band on, Call device within reach, Bed in low position, Wheels locked, Safety level maintained [facility] Mental Status Date Assessment Result Facility 10-28-2023 Mental Status Orientation Oriented x 4 [facility] 10-28-2023 Mental Status [facility] 06-30-2022 Mental Status Orientation Oriented x 4 [facility] Clinical Notes 06-30-2022 to 10-17-2024 Note Date [...] Locations *1: This test was performed at: [facility], [address] [place] [address], [phone]- , [facility] 10-14-2024 Hospital Discharge instructions Patient Education [...] Boil returns when you are at home [phone] [employer]. [address] [place] [address], [place] [id number]. All rights reserved. This information is not intended as a substitute for professional medical care. Always follow your healthcare professional's instructions. Follow Up Care 10/14/2024 16:03:16 With:SRAVAN GARSIA MD Address: [address] [phone] [phone] [facility]:2[facility] Note Discharge Instructions Thank you for allowing [facility] to assist you with your healthcare needs. [...] SRAVAN GARSIA MD When:Within 2-4 days Where:[address] [phone] [phone] Allergies Keflex Medications Please ask your primary [...] Boil returns when you are at home [phone] [employer]. [address] [place] [address], [place] [address]. All rights reserved. This information is not intended as a substitute for professional medical care. Always follow your healthcare professional's instructions. Additional Information VACCINATE! IT SAVES LIVES! Members of the community who have not yet received the COVID-19 vaccine and would like to receive it can visit one of [facility] vaccine clinics. There are many vaccine clinic locations within the State. For locations and available times, please visit [email or web address] [email or web address] It is important to note that some COVID mobile vaccine clinics are held outdoors and may be canceled in rainy or stormy conditions. To learn more about pediatric vaccinations (ages 5-11), we invite you to visit the [facility] webpage. https://www.akDyns.org/pa ges/4061-Fpgkc-Oplvnexjadi-Freque hkgp-Uhnvp-Cupqxtpdy.html To learn more about the COVID-19 vaccine, we invite you to visit the CDC website for a list of frequently asked questions. https://www.cdc.gov/coronavirus/2 019-ncov/vaccines/faq.html [facility] Patient Portal Access Instructions: Stay connected with your healthcare team and access your personal medical information anytime with the [facility] Patient Portal. If you would like a full copy of your medical records please contact the [facility] Medical Records Department Friday through Friday between 8a.m. and 4:30p.m. Please follow the directions below to access the portal: 1.Access the email account you provided upon registration to the hospital.2.Look for an invitation email from [facility].3.Open the email and access the invitation link: Accept Invitation to [facility]4.Fill in the required muro to create your account. Sign into [email or web address] with your username and password that you [...] you will allow to register on the [facility] Patient Portal for access to your information. You can also access the [facility] Patient Portal on the [employer] mitchel. Simply click on Health Records under [...] Call your local pharmacy or go to http://[email or web address].First30Days/[email or web address] to find one close to you.3.Make use of household items: Use cat litter or old coffee grounds to dispose medications if other options are not available. Mix your drugs with these household products, seal them in an airtight container and throw it into the garbage. Call [facility]: [phone] to be sure your drugs can be [...] aware that I should contact my doctor. Patient/Fisher Pot Signature: Date/Time: Relationship to Patient: ____ Witness Name/Signature: Date/Time: [facility] 10-14-2024 Evaluation + Plan note Diagnostic Tests PendingCulture Wound Aerobic with Gram Stain 10/14/24 [facility] 08-03-2024 Evaluation note Diagnosis Onset Date Resolution Diabetes mellitus chronic July 202024 1:36pm Hypertension chronic August 03, 2024 1:36pm Obesity chronic August 03 1:36pm Postoperative primary hypothyroidism chronic August 03, 2024 1:36pm Thyroid cancer chronic July 1:36pm [facility] Work Phone: 1(468) 653-788204-15-2025 Evaluation note* Diagnosis Onset Date Resolution Status [...] Thyroid cancer chronic November 09, 2024 1:46pm [facility] Work Phone: 1(314) 850-626507-09-2024 Hospital Discharge instructions Patient Education 10/28/2023 08:40:14 [...] that stimulate the heart. This includes many dkqu-zgp-mwldcou cold and sinus decongestant pills and sprays, as well as diet pills. Check the warnings about high blood pressure onthe label. Before buying any pyjy-rnd-navtvlo medicines or supplements, always ask the pharmacist [...] one of these at most pharmacies. The [place] [employer] recommends the following guidelines for [...] face You have problems speaking or seeing 7821-7639 [employer]. [address] [place] [address]. All rights reserved. This information is not [...] or as directed by your healthcare provider [phone] [employer]. [address] [place] [address], [place] [address]. All rights reserved. This information is not [...] Swelling, pain or redness in one leg [phone] [employer]. [address] [place] [address]. All rights reserved. This information is not intended as a substitute for professional medical care. Always follow yourhealthcare professional's instructions. Follow Up Care 10/28/2023 07:12:13 With:SRAVAN GARSIA MD Address: [address] [place] [phone]- [phone] When:2-4 days [facility] 07-09-2024 Note Discharge Instructions Thank you for allowing [facility] to assist you with your healthcare needs. The following is importantdischarge information regarding your hospital visit. What to Do Next Instructions from Your Care Team No qualifying data available. Post Acute Orders No qualifying data available. You Need to Schedule the Following Appointments Follow Up with SRAVAN GARSIA MD When:Within 2-4 days Where:[address] [place] [phone] Allergies Keflex Medications Please ask your primary [...] that stimulate the heart. This includes many pqpq-pcz-pydekzs cold and sinus decongestant pills and sprays, as well as diet pills. Check the warnings about high blood pressure onthe label. Before buying any ujzs-xim-fwjvykn medicines or supplements, always ask the pharmacist [...] one of these at most pharmacies. The [place] [employer] recommends the following guidelines for [...] face You have problems speaking or seeing [phone] [employer]. [address] [place] [address]. All rights reserved. This information is not [...] or as directed by your healthcare provider [phone] [employer]. [address] [place] [address]. All rights reserved. This information is not [...] Swelling, pain or redness in one leg 4608-7093 [employer]. [address] [place] [address]. All rights reserved. This information is not intended as a substitute for professional medical care. Always follow yourhealthcare professional's instructions. Additional Information VACCINATE! IT SAVES LIVES! Members of the community who have not yet received the COVID-19 vaccine and would like to receive it can visit one of [facility] vaccine clinics. There are many vaccine clinic locations within the [facility]. For locations and available times, please visit www.[email or web address].[email or web address]/. It is important to note that some COVID mobile vaccine clinics are held outdoors and may be canceled in rainy or stormy conditions. To learn more about pediatric vaccinations (ages 5-11), we invite you to visit the [facility] webpage. https://www.[facility].org/pages/9681-Bzgdk-Esonyuyjfta-Jwwycmzudd-Ycwkw-Bcv stions.htmlTo learn more about the COVID-19 vaccine, we invite you to visit the CDC website for a list of frequently asked questions. https://www.cdc.gov/coronavirus/2019-ncov/vaccines/faq.html [facility] Patient Portal Access Instructions: Stay connected with your healthcare team and access your personal medical information anytime with the [facility] Patient Portal. If you would like a full copy of your medical records please contact the [facility] Medical Records Department Friday through Friday between 8a.m. and 4:30p.m. Please follow the directions below to access the portal: 1.Access the email account you provided upon registration to the [facility].2.Look for an invitation email from [facility].3.Open the email and access the invitation link: Accept Invitation to [facility] [employer]4.Fill in the required muro to create your account. Sign into [email or web address] with your username and password that you [...] you will allow to register on the [facility] Patient Portal for access to your information. You can also access the [facility] Patient Portal on the F[employer]Sense mitchel. Simply click on Health Records under HealthData and then click on the [employer] logo. HOW TO SAFELY DISPOSE OF PRESCRIPTION [...] Call your local pharmacy or go to http://bit.First30Days/8K0Ii1h to find one close to you.3.Make use of household items: Use cat litter or old coffee grounds to dispose medications if other options arenot available. Mix your drugs with these household products, seal them in an airtight container andthrow it into the garbage. Call [facility]: [phone] to be sure your drugs can be [...] am aware that I should contactmy doctor. Patient/Fisher Pot Signature: Date/Time: Relationship to Patient: Witness Name/Signature: Date/Time: [facility]07-09-2024 Note ORIGINAL EXAMINATION: ONE XRAY VIEW OF [...] Date: 10/28/2023 8:02:17 AM [facility] NoteSinus rhythm Nonspecific intraventricular conduction delay Baseline wander in lead(s) V6 BORDERLINE ECG Electronic Signature: TEGAN SHELLEY 10/28/2023 07:35:50[facility] 03-12-2023 Hospital Discharge instructions Patient Education 06/30/2022 [...] some information about medicine: You may use gxwq-ujr-djgasjt medicine such as acetaminophen or ibuprofen to [...] re-open Bleeding not controlled by direct pressure [phone] [employer]. [address] [place] [address]. All rights reserved. This information is not intended as a substitute for professional medical care. Always follow yourhealthcare professional's instructions. Follow Up Care 06/30/2022 14:13:12 With:SRAVAN GARSIA Address: [address] [place] [address] [place] [phone]- [phone] Business (1) When:Within 1 Week(s) Comments:Follow-up as needed.Daily wound care with dressing changes.Use Tylenol, Advil or Aleve for pain as needed.Watch for signs of infection.Return to the ED if symptoms worsen. [facility] 03-12-2023 Note Discharge Instructions Thank you for allowing [facility] to assist you with your healthcare needs. [...] to the ED if symptoms worsen. Where: [address] [place] [address] [place] [phone]- [phone] Business (1) Allergies Keflex Immunizations This Visit [...] some information about medicine: You may use ttny-fqq-uoedhiz medicine such as acetaminophen or ibuprofen to [...] re-open Bleeding not controlled by direct pressure 4410-0792 [employer]. [address] [place] [address]. All rights reserved. This information is not intended as a substitute for professional medical care. Always follow yourhealthcare professional's instructions. Additional Information VACCINATE! IT SAVES LIVES! Members of the community who have not yet received the COVID-19 vaccine and would like to receive it can visit one of [facility] vaccine clinics. There are many vaccine clinic locations within the [facility]. For locations and available times, please visit www.[email or web address]/. It is important to note that some COVID mobile vaccine clinics are held outdoors and may be canceled in rainy or stormy conditions. To learn more about pediatric vaccinations (ages 5-11), we invite you to visit the [facility] webpage. https://www.[facility].org/pages/3514-Tegkg-Njcncmrmntm-Huqpvuemus-Kjuoz-Ivu stions.htmlTo learn more about the COVID-19 vaccine, we invite you to visit the CDC website for a list of frequently asked questions. https://www.cdc.gov/coronavirus/2019-ncov/vaccines/faq.html [facility] [employer] Patient Portal Access Instructions: Stay connected with your healthcare team and access your personal medical information anytime with the [facility] Patient Portal. If you would like a full copy of your medical records please contact the [facility] Medical Records Department Friday through Friday between 8a.m. and 4:30p.m. Please follow the directions below to access the portal: 1.Access the email account you provided upon registration to the [facility].2.Look for an invitation email from [facility].3.Open the email and access the invitation link: Accept Invitation to [facility]4.Fill in the required muro to create your account. Sign into [email or web address] with your username and password that you [...] you will allow to register on the [facility] Patient Portal for access to your information. You can also access the [facility] Patient Portal on the [facility]. Simply click on Health Records under [employer]Cast and then click on the [employer] logo. HOW TO SAFELY DISPOSE OF PRESCRIPTION [...] Call your local pharmacy or go to http://TapDog.First30Days/[email or web address] to find one close to you.3.Make use of household items: Use cat litter or old coffee grounds to dispose medications if other options arenot available. Mix your drugs with these household products, seal them in an airtight container andthrow it into the garbage. Call [facility]: [phone] to be sure your drugs can be [...] am aware that I should contactmy doctor. Patient/Fisher Pot Signature: Date/Time: Relationship to Patient: Witness Name/Signature: [facility] No data available for this section [facility] Evaluation note* Diagnosis Onset Date Resolution Status Cervical radiculopathy at C6 acute Diabetes mellitus acute Morbid obesity with BMI of 45.0-49.9, adult acute Diabetes mellitus acute Hyperlipidemia acute Hypertension acute Hypothyroidism (acquired) ac caren Obesity acute Thyroid cancer acute [facility] Work Phone: Evaluation note* Diagnosis Onset Date Resolution Status Depression acute Diabetes mellitus acute Hyperlipidemia acute Hypertension acute Obesity acute Postoperative primary hypothyroidism acute Thyroid cancer acute Cervical disc disorder at C5-C6 level with radiculopat hy acute Cervical disc disorder at C5-C6 level with radiculopat hy acute [facility] Work Phone: Evaluation note* Diagnosis Onset Date Resolution Status Cervical disc disorder at C5-C6 level with radiculopat hy acute Cervical disc disorder at C5-C6 level with radiculopat hy [facility] Work Phone: Evaluation noteNo assessment information available [facility] Work Phone: [facility] Work Phone: Hospital Discharge instructions No data available for this section [facility] Progress note No data available for this section [facility] Reason for referral (narrative)No reason for referral information availableWSCCI Hospital [facility] Work Phone: Chief Complaint and Reason for Visit Chief Complaint neck pain [id number] MAILED RADICULOPATHY (M54.12) . RX HERE Reason for Visit Cervical radiculopat hy at C6 Diabetes mellitus Morbid obesity with BMI of 45.0-49.9, adult Diabetes mellitus Hyperlipidemia Hypertension Hypothyroidism (acquired) Obesity Thyroid cancer Chief Complaint neck pain OJ-OWHZAWO-QJB MAILED RIGHT LEG SWELLING RADICULOPATHY (M54.12) . [...] Will No December 11 3:54pm Power of Drywall Sprayer No December 11 022 3:54pm Advance Directive Response Recorded Date/ Time Living Will No June 24, 2022 3:48pm Power of Drywall Sprayer No June 24 3:48pm Summary Purpose Family [...] Role: Primary Care Physician Address: Address: [address] [id number]- Care Team Personnel Name: SRAVAN GARSIA MD Member Role: Primary Care Physician Address: Address: [address] [place] [phone]- Name: Virginia Jones RN Position: AO RN Member Role: ED RN Name: JOHNNY GARCIA MD Position: ED Physician Member Role: ED Physician Address: Address: THUAN KEITH [facility] [address] [place] [address]- (unrecognized sect ion and content) No Status Records FoundNo Status Records FoundNo Status Records Found INFORMATION SOURCE (unrecogn ized section and content) DATE CREATED AUTHOR 11/09/2023 [facility] ([place]) DATE CREATED AUTHOR AUTHOR'S ORGANIZ ATION 10/17/2024 [facility] DATE CREATED AUTHOR AUTHOR'S ORGANIZ ATION 01/08/2025 [facility] FOR RECORDS PERTAINING TO PATIENTS [...] BE BASED ON THE PRIMARY CLINICAL RECORDS. [employer] [facility]. provides no warranty or guarantee of the accuracy or completeness of information in this document.
[2025-01-13 10:42] LABS: Hematocrit 45.0 % (40-54); Hemoglobin 15.8 g/dL (13.0-16.5); Immature Granulocytes Count 0.040 X10^3/uL (0.0-0.0); Mean Corp Hgb Conc 35.1 g/dL (32-36); Mean Corpuscular Volume 92.4 fL (80-94); Mean Platelet Vol. 10.7 fl (6.2-12.0); NRBC Flagged by Analyzer 0 % (0-5); Platelet Count 204 K/mm3 (150-450); RBC Distribution Width CV 13.5 % (11.6-14.6); RBC Distribution Width SD 46.2 fl (35.1-43.9); Red Blood Count 4.87 M/mm3 (4.6-6.2); White Blood Count 6.6 K/mm3 (4.4-11.0)
== END | disposition home or self-care (01) ==
LOC: MTLAB 07:51
PROVIDERS: PCP Internal Medicine; Referring Provider Nurse Practitioner Family; Visit Provider Nurse Practitioner Family
DX: E11.65 Type 2 diabetes mellitus with hyperglycemia (principal)
CPT/HCPCS: 36415; 85025

== ENCOUNTER → 2025-03-10 | Outpatient (CLI) | payer OTHER, SELFPAY | END | disposition home or self-care (01) | PROVIDERS: PCP Internal Medicine; Referring Provider Internal Medicine Endocrinology, Diabetes & Metabolism; Visit Provider Internal Medicine Endocrinology, Diabetes & Metabolism | DX: E89.0 Postprocedural hypothyroidism (principal) | CPT/HCPCS: 36415; 84443 ==